=== PATIENT | female | born 1965 | race Caucasian/White ===

== ENCOUNTER 2016-09-12 13:09 | Inpatient (IN) | payer MEDICARE ==
[~2016-09-12] VITALS: Ht 162.6 cm; Wt 77.1 kg
[~2016-09-12 13:09] MED LIST: /ADVA50050 INH; /ESOM40CA PO; /ONDA4TA PO; AMITIZA; AMITIZA PO; CALTRATE; CALTRATE PO; CIPR750T5 PO; CLAR5CHW OR; COLA100C2 OR; DEXI60CA PO; DOXY150C PO; FLAXOIL PO; FLUC10TA OR; INSUH10VL SC; INSUH10VL SQ; INSULANT; INSULANT SC; KALYDECO PO; KETO-28; METO10TA2 OR; MIRALEX PO; MULTIVIT; NEXI40CA PO; NOVOLOG100 MG/ML; PULM1SOL INH; SODI3NEB INH; TOBRAMYCIN; VITA100T17 OR; VITA500046 PO; VITA500047 PO; VITA500C24 PO; VITAMIN D50000 UNT PO; XOPE1.252 INH; [UNRECOGNIZED DRUG - CODE] IN; [UNRECOGNIZED DRUG - CODE] IN; [UNRECOGNIZED DRUG - OTHER]; [UNRECOGNIZED DRUG - OTHER]; [UNRECOGNIZED DRUG - OTHER] INH; [UNRECOGNIZED DRUG - OTHER] NEB; ferrous sulfate PO; lantus insulin SC; mucinex PO; multivitamin PO; vit c PO
[2016-09-12] MEDS ORDERED: IPRATROPIUM 0.5MG/ALBUTEROL 2.5MG INH SOL UD 3ML (DUONEB)(J7620) As Ordered ONE (14:07)
--- NOTE | 2016-09-12 14:44 | REP ---
CHEST, PA AND LATERAL VIEWS: There is mild diffuse bilateral interstitial coarsening, unchanged, compatible with interstitial fibrosis. On the prior study I note the patient has clinical history of cystic fibrosis. There are no acute infiltrates. There is chronic effacement of the left costophrenic angle, unchanged, likely pleural adhesion. Cardiac size is normal. The oliver, mediastinum, and bony thorax are unremarkable. IMPRESSION: Chronic interstitial coarsening and chronic effacement of the left costophrenic angle. There are no acute cardiopulmonary findings. Unreviewed
[2016-09-12] MEDS ORDERED: D5W IV ONE (15:15)
[2016-09-12] MEDS ORDERED: TOBRAMYCIN SULF IV ONE (15:15)
[2016-09-12] MEDS ORDERED: ISOVUE-300 61% 50ML VIAL (Q9967) As Ordered ONE (15:24)
[2016-09-12] MEDS ORDERED: ONDANSETRON 4 MG TAB (S0181) PO PRN (16:00)
[2016-09-12] MEDS ORDERED: COLA100C PO (16:34)
[2016-09-12] MEDS ORDERED: DEXI60CA PO (16:34)
[2016-09-12] MEDS ORDERED: PULM1SOL INH (16:34)
[2016-09-12] MEDS ORDERED: NEXI40CA PO (16:34)
[2016-09-12] MEDS ORDERED: INSUH10VL SC (16:34)
[2016-09-12 16:35] LABS: BASO # 0.1 K/mm3 (0.0-0.2); BASO % 0.8 % (0.0-1.0); EOS # 0.1 K/mm3 (0.0-0.50); LARGE UNSTAINED CELL # 0.1 K/mm3 (0.0-0.4); LARGE UNSTAINED CELL % 1.1 % (0.0-4.0); LYMPH # 1.4 K/mm3 (1.5-4.5); LYMPH % 12.9 % (24.0-44.0); MEAN CORPUSCULAR VOLUME 81.6 fl (80.0-96.0); MONO # 0.4 K/mm3 (0.0-0.8); MONO % 3.7 % (0.0-5.0); NEUTROPHILS # 8.1 K/mm3 (1.8-7.7); NEUTROPHILS % 80.5 % (36.0-66.0); PLATELET COUNT, AUTOMATED 259 k/mm3 (150-450); RED CELL DISTRIBUTION WIDTH 13.3 % (11.5-14.5); WHITE BLOOD COUNT 10.1 K/mm3 (4.0-10.0)
[2016-09-12] MEDS ORDERED: LEVA12INH INH (16:36)
[2016-09-12] MEDS ORDERED: INSULANT SC (16:36)
[2016-09-12] MEDS ORDERED: CLAR1TAB2 PO (16:36)
[2016-09-12] MEDS ORDERED: [UNRECOGNIZED DRUG - CODE] INH (16:36)
[2016-09-12] MEDS ORDERED: MIRA3350 PO (16:36)
[2016-09-12 16:40] LABS: INR 1.16
[2016-09-12] MEDS ORDERED: KALY150T PO (16:42)
[2016-09-12] MEDS ORDERED: CALTTAB11 PO (16:42)
[2016-09-12] MEDS ORDERED: AQUACAP PO (16:42)
[2016-09-12] MEDS ORDERED: DRIS50002 PO (16:42)
[2016-09-12] MEDS ORDERED: AMIT24CA5 PO (16:42)
[2016-09-12] MEDS ORDERED: VITA100T56 PO (16:42)
[2016-09-12] MEDS ORDERED: CREO24CA PO ×2 (16:42)
[2016-09-12] MEDS ORDERED: GLUCOSE 4 GM CHEW TABLET PO PRN (16:45)
[2016-09-12] MEDS ORDERED: DEXTROSE 50% 50 ML SYRINGE IV PRN (16:45)
[2016-09-12] MEDS ORDERED: GLUCAGON FOR INJ 1 MG VIAL (J1610) SC PRN (16:45)
[2016-09-12 16:47] LABS: ALBUMIN 3.6 GM/DL (3.2-5.2); ALBUMIN/GLOBULIN RATIO 1.03 (1.00-1.93); ALKALINE PHOSPHATASE 136 U/L (45-117); ALT/SGPT 26 U/L (12-78); ANION GAP 12 MEQ/L (8-16); AST/SGOT 28 U/L (15-37); BILIRUBIN,DIRECT 0.2 MG/DL (0.0-0.2); BILIRUBIN,TOTAL 0.4 MG/DL (0.2-1.0); BLOOD UREA NITROGEN 12 MG/DL (7-18); CALCIUM LEVEL 8.3 MG/DL (8.5-10.1); CARBON DIOXIDE LEVEL 27 MEQ/L (21-32); CHLORIDE LEVEL 103 MEQ/L (98-107); CREATININE FOR GFR 0.78 MG/DL (0.55-1.02); GLOMERULAR FILTRATION RATE > 60.0 (>51); GLUCOSE, FASTING 178 MG/DL (70-105); POTASSIUM SERUM 3.7 MEQ/L (3.5-5.1); SODIUM LEVEL 142 MEQ/L (136-145); TOTAL PROTEIN 7.1 GM/DL (6.4-8.2)
[2016-09-12] MEDS ORDERED: PHYT5TA PO (16:47)
--- NOTE | 2016-09-12 17:32 | REP ---
SINGLE LUMEN PICC LINE INSERTION: The patient was referred for single lumen PICC line insertion. Informed consent was obtained. Under sterile conditions and after satisfactory administration of local anesthesia, using guidance from the [employer] device access to the right brachial vein is obtained. Over a wire an introducer sheath is placed. Wire could not be easily passed through the right axillary vein. I injected contrast to perform a venogram which showed a torturous course of the right axillary vein, which was slightly narrowed. Utilizing a glide wire within the single lumen PICC line, the PICC line was passed through the right axillary vein and the tip was positioned in the superior vena cava via fluoroscopy. Hemostasis was obtained. There were no immediate complications. 2.8 cm minutes of fluoroscopy time was utilized. Signed by Eric Garcia MD 09/16/2016 03:28 P
--- NOTE | 2016-09-12 17:43 | EDDOCDS ---
Nurse's Notes [facility] Name: Jovanna Ocampo Age: 51 yrs Sex: Female : 1965 Arrival Date: 09/12/2016 Time: 13:09 Bed 19 Private MD: Felipa Lainez Diagnosis: Cystic fibrosis with pulmonary manifestations Presentation: 09/12 13:17 Presenting complaint: Patient states: progressively getting worse with breathing dy difficulty. has cystic fibrosis. was unable to get into Dr. Francis. Adult Sepsis Screening: The patient does not have new or worsening altered mentation. Patient has a respiratory rate of greater than or equal to 22 (1 point). Systolic blood pressure is greater than 100. Patient has a qSOFA score of 2. Patient has cough and/or SOB- Positive Sepsis Screen. Notified Vishnu Funez MD Patient made SHAWN Level 2. Patient placed in exam room. Charge nurse notified. Suicide/Homicide risk assessment- the patient denies having any suicidal and/or homicidal ideations and does not present with any other emotional, behavioral or mental health complaints. Status: Patient is not a community service worker or dependent. Transition of care: patient was not received from another setting of care. 13:17 Acuity: SHAWN Level 2 dy 13:17 Method Of Arrival: Walkin/Carried/Asstd dy Triage Assessment: 13:52 General: Appears distressed, Behavior is cooperative. Pain: Location: lungs Pain jf3 currently is 6 out of 10 on a pain scale. Pt Declines HIV testing. The patient is triaged at the bedside. See Assessment in Nurses Notes section of ED record. Respiratory: Airway is patent Respiratory effort is labored, Respiratory pattern is hyperventilation Breath sounds are diminished bilaterally. Reports shortness of breath at rest cough that is persistent the patient has moderate shortness of breath. Derm: Skin is normal. Historical: - Allergies: SULFA (SULFONAMIDES); Codeine Sulfate; Fortaz; Aztreonam; CEPHALOSPORINS; Morphine; sulfa cross reactors; - Home Meds: 1. Dexilant 60 mg oral CpDB 1 cap once daily (Last dose: 09/12/2016) 2. Colace 100 mg oral cap 1 cap 2 times per day (Last dose: 09/12/2016) 3. pulmozyme (Last dose: 09/12/2016) 4. Nexium 40 mg Oral cpDR 1 cap once daily (Last dose: 09/12/2016) 5. Novolog 100 unit/mL Sub-Q soln pt hasn't used since she hasn't eaten (Last dose: 09/09/2016) 6. Lantus 100 unit/mL Sub-Q soln pt hasn't used since she hasn't eaten (Last dose: 09/09/2016) 7. Xopenex 1.25 mg/3 mL Nebulizer nebu (Last dose: 09/12/2016) 8. Claritin 10 mg Oral tab 1 tab once daily (Last dose: 09/12/2016) 9. Miralax 17 gram Oral pwpk 1 packet once daily (Last dose: 09/12/2016) 10. montserrat podhaler 28mg takes for one month every other month, off this month 11. Vitamin D3 oral 23770 units oral 3x week 12. vitamin k 100 mcg weekly 13. Amitiza 24 mcg oral cap 1 cap 2 times per day (Last dose: 09/12/2016) 14. Caltrate 600 + D 600 mg (1,500 mg)-800 unit oral chew daily (Last dose: 09/12/2016) 15. Kalydeco 150 mg oral tab 1 tab every 12 hours (Last dose: 09/12/2016) - PMHx: Cystic Fibrosis; Diabetes - IDDM: controlled; Arthritis; - PSHx: Appendectomy (1979); - Social history: No barriers to communication noted, The patient speaks fluent Ivorian, Smoking status: other. - Family history: Not pertinent. - : The pt / caregiver states he / she is not on anticoagulants. Home medication list is obtained from the patient, a discharge med list. - Exposure Risk Screening:: None identified. Screenin:02 Screening information is obtained from the patient. Fall risk: No risks identified. jf3 Assistance ADL's: requires no assistance with activities of daily living. Abuse/DV Screen: The patient / caregiver reports he/she is: not in a situation that causes fear, pain or injury. Nutritional screening: No deficits noted. Advance Directives: Currently, there is no health care proxy. There is no active DNR order. home support is adequate. Assessment: 13:55 General: Appears distressed, Behavior is cooperative. Pain: Location: lungs Pain jf3 currently is 6 out of 10 on a pain scale. Neurological: Level of Consciousness is awake, alert, Oriented to person, place, time. Cardiovascular: Capillary refill < 3 seconds Heart tones S1 S2 present Chest pain is denied. Respiratory: Airway is patent Respiratory effort is labored, Respiratory pattern is hyperventilation Breath sounds are diminished bilaterally. Reports shortness of breath cough that is persistent labored breathing the patient has moderate shortness of breath. Derm: Skin is normal. 14:45 General: pt to asset availability leader for PICC line. jf3 16:15 General: Appears in no apparent distress, comfortable, Behavior is cooperative, pt jf3 returned from asset availability leader. Pain: Pain currently is 6 out of 10 on a pain scale. Neurological: Level of Consciousness is awake, alert, Oriented to person, place, time. Cardiovascular: Capillary refill < 3 seconds Chest pain is denied. Respiratory: Airway is patent Respiratory effort is even, unlabored, Respiratory pattern is regular, symmetrical, Reports shortness of breath cough that is. Derm: Skin is normal. 16:45 General: called placed to PEDs for report, Elizabeth states the nurse is not there at this jf3 time and a nurse will do the admission first. States they will call ED when ready. 17:23 General: Admission nurse in room with pt at this time. Pt coughing decreased. jf3 respirations appear improved and unlabored. Will continue to monitor. 17:34 General: Appears in no apparent distress, comfortable, Behavior is cooperative. Pain: jf3 Pain currently is 7 out of 10 on a pain scale. Neurological: Level of Consciousness is awake, alert, Oriented to person, place, time. Cardiovascular: Capillary refill < 3 seconds Heart tones S1 S2 present. Respiratory: Airway is patent Respiratory effort is even, unlabored, Respiratory pattern is regular, symmetrical, Breath sounds are coarse Breath sounds are diminished bilaterally. Reports cough that is persistent. Derm: Skin is normal. Vital Signs: 13:11 BP 164 / 78; Pulse 104; Resp 24 S; Temp 97.9(T); Pulse Ox 91% on R/A; Weight 77.11 kg dd6 (R); Height 54 in. (137.16 cm) (R); 16:02 Pulse 108 MON; Pulse Ox 96% ; jf3 16:03 BP 160 / 88 (auto/); jf3 16:20 BP 155 / 61 (auto/); jf3 16:20 Pulse 104 MON; Pulse Ox 94% ; jf3 16:35 BP 152 / 71 (auto/); jf3 16:36 Pulse 102 MON; Pulse Ox 96% ; jf3 16:50 BP 139 / 63 (auto/); jf3 16:51 Pulse 100 MON; Pulse Ox 97% ; jf3 17:05 BP 134 / 64 (auto/); jf3 17:06 Pulse 104 MON; Pulse Ox 96% ; jf3 17:20 BP 133 / 63 (auto/); jf3 17:21 Pulse 100 MON; Pulse Ox 96% ; jf3 17:34 BP 141 / 68; Pulse 101; Resp 24; Temp 100.1(O); Pulse Ox 96% 3 lpm ; Pain 7/10; jf3 13:11 Body Mass Index 40.99 (77.11 kg, 137.16 cm) dd6 Vitals: 13:11 Log In Time: September 12, 2016 at 13:09. dd6 ED Course: 13:10 Patient visited by Mark No PCA. dd6 13:10 Patient moved to Waiting dd6 13:11 Felipa Lainez is Private Physician. dd6 13:12 Patient moved to Pre RCE dd6 13:19 Triage Initiated dy 13:21 Patient moved to 19 dy 13:26 [facility] ke 13:26 Patient visited by Lion Jaquez FNP. ke 13:26 Patient visited by Lion Jaquez FNP. ke 13:55 The patient / caregiver is instructed regarding the plan of care and ED course. jf3 13:57 Patient visited by Devin Salazar RN. jf3 14:16 Patient visited by Tracey Nicole PCA. jlf 14:16 Patient visited by Tracey Nicole PCA. jlf 14:16 EKG done. (by ED staff). Reviewed by Lion FRANCIS. jlf 14:55 Patient visited by Lion Jaquez FNP. ke 14:55 [facility] Payment Agreement was scanned into [employer] and attached to record. mm15 15:27 Chest, 2 View (pa\E\lat) Returned. EDMS 15:33 Patient visited by Lion Jaquez FNP. ke 15:Sherri Knight is Hospitalizing Provider. ke 16:02 Accessed PICC line placed by asset availability leader. No procedures done that require assistance. jf3 17:24 Patient visited by Devin Salazar RN. jf3 Administered Medications: 14:06 Drug: Albuterol-Ipratropium 1 neb [ipratropium-albuterol 0.5 mg-3 mg(2.5 mg base)/3 mL rs5 nebulization soln (1 neb)] Route: Nebulizer; 14:11 Drug: Albuterol-Ipratropium 1 neb [ipratropium-albuterol 0.5 mg-3 mg(2.5 mg base)/3 mL rs5 nebulization soln (1 neb)] Route: Nebulizer; 14:11 Follow up: Response: Nebulizer completed rs5 14:11 Follow up: Response: Nebulizer completed rs5 14:11 Follow up: Response: Nebulizer completed rs5 14:11 Drug: Albuterol-Ipratropium 1 neb [ipratropium-albuterol 0.5 mg-3 mg(2.5 mg base)/3 mL rs5 nebulization soln (1 neb)] Route: Nebulizer; 16:26 Drug: Tobramycin 500 mg {Note: RUNNING VIA PICC.} Route: IV; Rate: 500 mg/hr; Site: [facility] Implantable Access Device; 17:40 Follow up: IV Status: Completed infusion; IV Intake: 100ml 3 Intake: 17:40 IV: 100.00ml; Total: 100.00ml. jf3 RT: 14:12 Initial Med Neb Given as ordered Subsequent Med Neb Given as ordered Patient was rs5 reinforced on procedure Patient tolerated procedure well without adverse effect. Respiratory: Respiratory effort is even, unlabored, Respiratory pattern is regular symmetrical, Breath sounds with crackles bilaterally. Breath sounds are diminished Breath sounds with wheezes Reports cough that is productive. Order Results: Lab Order: Basic Metabolic Profile; SPEC'M 09/12/16 16:08 Test: GLUCOSE, FASTING; Value: 178; Range: 70-105; Abnormal: Above high normal; Units: MG/DL; Status: F Test: BLOOD UREA NITROGEN; Value: 12; Range: 7-18; Units: MG/DL; Status: F Test: CREATININE FOR GFR; Value: 0.78; Range: 0.55-1.02; Units: MG/DL; Status: F Test: GLOMERULAR FILTRATION RATE; Value: > 60.0; Range: >51; Status: F Test: SODIUM LEVEL; Value: 142; Range: 136-145; Units: MEQ/L; Status: F Test: POTASSIUM SERUM; Value: 3.7; Range: 3.5-5.1; Units: MEQ/L; Status: F Test: CHLORIDE LEVEL; Value: 103; Range: 98-107; Units: MEQ/L; Status: F Test: CARBON DIOXIDE LEVEL; Value: 27; Range: 21-32; Units: MEQ/L; Status: F Test: ANION GAP; Value: 12; Range: 8-16; Units: MEQ/L; Status: F Test: CALCIUM LEVEL; Value: 8.3; Range: 8.5-10.1; Abnormal: Below low normal; Units: MG/DL; Status: F Test Note: ; Units are mL/min/1.73 m2 Chronic Kidney Disease Staging per NKF: Stage I & II GFR >=60 Normal to Mildly Decreased Stage III GFR 30-59 Moderately Decreased Stage IV GFR 15-29 Severely Decreased Stage V GFR <15 Very Little GFR Left ESRD GFR <15 on TRACK SWEEPER Lab Order: CBC with Diff; SPEC'M 09/12/16 16:08 Test: WHITE BLOOD COUNT; Value: 10.1; Range: 4.0-10.0; Abnormal: Above high normal; Units: K/mm3; Status: F Test: RED BLOOD COUNT; Value: 4.74; Range: 4.00-5.40; Units: M/mm3; Status: F Test: HEMOGLOBIN; Value: 12.8; Range: 12.0-16.0; Units: g/dl; Status: F Test: HEMATOCRIT; Value: 38.7; Range: 36.0-47.0; Units: %; Status: F Test: MEAN CORPUSCULAR VOLUME; Value: 81.6; Range: 80.0-96.0; Units: fl; Status: F Test: MEAN CORPUSCULAR HEMOGLOBIN; Value: 27.0; Range: 27.0-33.0; Units: pg; Status: F Test: MEAN CORPUSCULAR HGB CONC; Value: 33.0; Range: 32.0-36.5; Units: g/dl; Status: F Test: RED CELL DISTRIBUTION WIDTH; Value: 13.3; Range: 11.5-14.5; Units: %; Status: F Test: PLATELET COUNT, AUTOMATED; Value: 259; Range: 150-450; Units: k/mm3; Status: F Test: NEUTROPHILS %; Value: 80.5; Range: 36.0-66.0; Abnormal: Above high normal; Units: %; Status: F Test: LYMPH %; Value: 12.9; Range: 24.0-44.0; Abnormal: Below low normal; Units: %; Status: F Test: MONO %; Value: 3.7; Range: 0.0-5.0; Units: %; Status: F Test: EOS %; Value: 1.0; Range: 0.0-3.0; Units: %; Status: F Test: BASO %; Value: 0.8; Range: 0.0-1.0; Units: %; Status: F Test: LARGE UNSTAINED CELL %; Value: 1.1; Range: 0.0-4.0; Units: %; Status: F Test: NEUTROPHILS #; Value: 8.1; Range: 1.8-7.7; Abnormal: Above high normal; Units: K/mm3; Status: F Test: LYMPH #; Value: 1.4; Range: 1.5-4.5; Abnormal: Below low normal; Units: K/mm3; Status: F Test: MONO #; Value: 0.4; Range: 0.0-0.8; Units: K/mm3; Status: F Test: EOS #; Value: 0.1; Range: 0.0-0.50; Units: K/mm3; Status: F Test: BASO #; Value: 0.1; Range: 0.0-0.2; Units: K/mm3; Status: F Test: LARGE UNSTAINED CELL #; Value: 0.1; Range: 0.0-0.4; Units: K/mm3; Status: F Lab Order: Liver Profile; [facility]'M 09/12/16 16:08 Test: AST/SGOT; Value: 28; Range: 15-37; Units: U/L; Status: F Test: ALT/SGPT; Value: 26; Range: 12-78; Units: U/L; Status: F Test: ALKALINE PHOSPHATASE; Value: 136; Range: 45-117; Abnormal: Above high normal; Units: U/L; Status: F Test: BILIRUBIN,TOTAL; Value: 0.4; Range: 0.2-1.0; Units: MG/DL; Status: F Test: BILIRUBIN,DIRECT; Value: 0.2; Range: 0.0-0.2; Units: MG/DL; Status: F Test: TOTAL PROTEIN; Value: 7.1; Range: 6.4-8.2; Units: GM/DL; Status: F Test: ALBUMIN; Value: 3.6; Range: 3.2-5.2; Units: GM/DL; Status: F Test: ALBUMIN/GLOBULIN RATIO; Value: 1.03; Range: 1.00-1.93; Status: F Lab Order: PT/INR; SPEC'M 09/12/16 16:08 Test: PROTHROMBIN TIME; Value: 14.9; Range: 12.3-14.5; Abnormal: Above high normal; Units: SECONDS; Status: F Test: INR; Value: 1.16; Status: F Test Note: ; THERAPUTIC HUMAN INR VALUES INDICATIONS NORMAL RANGES PROPHYLAXIS/TREATMENT OF: VENOUS THROMBOSIS 2.0-3.0 PULMONARY EMBOLISM 2.0-3.0 PREVENTION OF SYSTEMIC EMBOLISM FROM: TISSUE HEART VALVES 2.0-3.0 ACUTE MYOCARDIAL INFARCTION 2.0-3.0 VALVULAR HEART DISEASE 2.0-3.0 ATRIAL FIBRILLATION 2.0-3.0 MECHANICAL VALVES(HIGH RISK) 2.5-3.5 RECURRENT MYOCARDIAL INFARCTION 2.5-3.5 Lab Order: Lactic Acid (Garcia tube on ice); SPEC'M 09/12/16 16:08 Test: LACTIC ACID LEVEL, LACTATE; Value: 1.6; Range: 0.4-2.0; Units: MMOL/L; Status: F Radiology Order: Chest, 2 View (pa\E\lat) Test: Chest, 2 View (pa\E\lat) REASON FOR EXAMINATION: Shortness of Breath; ; CHEST, PA AND LATERAL VIEWS:; ; There is mild diffuse bilateral interstitial coarsening, unchanged, compatible; with interstitial fibrosis. On the prior study I note the patient has clinical; history of cystic fibrosis.; ; There are no acute infiltrates.; ; There is chronic effacement of the left costophrenic angle, unchanged, likely; pleural adhesion.; ; Cardiac size is normal. The oliver, mediastinum, and bony thorax are unremarkable.; ; ; IMPRESSION:; Chronic interstitial coarsening and chronic effacement of the left costophrenic; angle.; ; There are no acute cardiopulmonary findings.; ; ; ; ; ; Unreviewed; Outcome: 15:54 Decision to Hospitalize by Provider. sharon 17:20 Admission hand-off: Report called to MARYANA Olea on PEDs. jf3 17:39 Discharge Assessment: patient administered narcotics - no. The following High Risk 3 Discharge criteria are identified: None. Admitted to Pediatrics accompanied by tech, via stretcher, with chart. Condition: stable. No special radiology studies were completed. Property :Personal belongings accompany Pt. 17:42 Patient left the ED. jf3 Signatures: Dispatcher [employer] EDMaurizio Arroyo, RN Lion Salas, DIRECTOR PUBLIC SERVICE DIRECTOR PUBLIC SERVICE Mark Gorman, PET CAREGIVER PET CAREGIVER dd6 Todd Matt,RT RT rs5 Desiree Shrestha mm15 Tracey Nicole, PET CAREGIVER PET CAREGIVER jlf Devin Salazar,RN RN jf3 MTDD
--- NOTE | 2016-09-12 17:43 | EDDOCDS ---
Physician Documentation [facility] Name: Jovanna Ocampo Age: 51 yrs Sex: Female : 1965 Arrival Date: 09/12/2016 Time: 13:09 Bed 19 Private MD: Felipa Lainez Disposition: 09/12/16 15:54 Hospitalization ordered by Sherri Francis for Inpatient Admission. Preliminary diagnosis is Cystic fibrosis with pulmonary manifestations. - Bed requested for M PED. - Status is Inpatient Admission. jf3 - Condition is Stable. - Problem is an acute exacerbation. - Symptoms are unchanged. Historical: - Allergies: SULFA (SULFONAMIDES); Codeine Sulfate; Fortaz; Aztreonam; CEPHALOSPORINS; Morphine; sulfa cross reactors; - Home Meds: 1. Dexilant 60 mg oral CpDB 1 cap once daily (Last dose: 09/12/2016) 2. Colace 100 mg oral cap 1 cap 2 times per day (Last dose: 09/12/2016) 3. pulmozyme (Last dose: 09/12/2016) 4. Nexium 40 mg Oral cpDR 1 cap once daily (Last dose: 09/12/2016) 5. Novolog 100 unit/mL Sub-Q soln pt hasn't used since she hasn't eaten (Last dose: 09/09/2016) 6. Lantus 100 unit/mL Sub-Q soln pt hasn't used since she hasn't eaten (Last dose: 09/09/2016) 7. Xopenex 1.25 mg/3 mL Nebulizer nebu (Last dose: 09/12/2016) 8. Claritin 10 mg Oral tab 1 tab once daily (Last dose: 09/12/2016) 9. Miralax 17 gram Oral pwpk 1 packet once daily (Last dose: 09/12/2016) 10. montserrat podhaler 28mg takes for one month every other month, off this month 11. Vitamin D3 oral 10352 units oral 3x week 12. vitamin k 100 mcg weekly 13. Amitiza 24 mcg oral cap 1 cap 2 times per day (Last dose: 09/12/2016) 14. Caltrate 600 + D 600 mg (1,500 mg)-800 unit oral chew daily (Last dose: 09/12/2016) 15. Kalydeco 150 mg oral tab 1 tab every 12 hours (Last dose: 09/12/2016) - PMHx: Cystic Fibrosis; Diabetes - IDDM: controlled; Arthritis; - PSHx: Appendectomy (1979); - Social history: No barriers to communication noted, The patient speaks fluent Salvadorean, Smoking status: other. - Family history: Not pertinent. - : The pt / caregiver states he / she is not on anticoagulants. Home medication list is obtained from the patient, a discharge med list. - Exposure Risk Screening:: None identified. Vital Signs: 09/12 13:11 BP 164 / 78; Pulse 104; Resp 24 S; Temp 97.9(T); Pulse Ox 91% on R/A; Weight 77.11 kg / dd6 170 lbs (R); Height 54 in. (137.16 cm) (R); 16:02 Pulse 108 MON; Pulse Ox 96% ; jf3 16:03 BP 160 / 88 (auto/); jf3 16:20 BP 155 / 61 (auto/); jf3 16:20 Pulse 104 MON; Pulse Ox 94% ; jf3 16:35 BP 152 / 71 (auto/); jf3 16:36 Pulse 102 MON; Pulse Ox 96% ; jf3 16:50 BP 139 / 63 (auto/); jf3 16:51 Pulse 100 MON; Pulse Ox 97% ; jf3 17:05 BP 134 / 64 (auto/); jf3 17:06 Pulse 104 MON; Pulse Ox 96% ; jf3 17:20 BP 133 / 63 (auto/); jf3 17:21 Pulse 100 MON; Pulse Ox 96% ; jf3 17:34 BP 141 / 68; Pulse 101; Resp 24; Temp 100.1(O); Pulse Ox 96% 3 lpm ; Pain 7/10; jf3 13:11 Body Mass Index 40.99 (77.11 kg, 137.16 cm) dd6 MDM: 13:42 -Blood Culture (Adults Only), peripheral from different site, or from device/port/PICC ke etc. if present ordered. 13:42 Cloth Sponger/Pulse Ox/q 15 min VS ordered. ke 13:42 Oxygen at 4L/Min NC or Home dosage ordered. ke 13:42 Rhythm Strip to chart ordered. ke 13:42 CBC Ordered. EDMS 13:42 Basic Metabolic Profile Ordered. EDMS 13:42 CBC with Diff Ordered. EDMS 13:43 Liver Profile Ordered. EDMS 13:43 PT/INR Ordered. EDMS 13:43 -Blood Culture Ordered. EDMS 13:43 Chest, 2 View (pa\E\lat) Ordered. EDMS 13:43 ECG WITH READING ER PHYS+CARDIAG ordered. EDMS 13:49 Financial registration complete. mm15 13:49 Albuterol-Ipratropium 1 neb Nebulizer every 20 minutes x3 ordered. ke 13:49 Call Respiratory ordered. ke 13:50 Misc [place] Barker Order ordered. ke 13:51 Sputum Culture & Gram Stain Ordered. EDMS 13:51 Lactic Acid (Garcia tube on ice) Ordered. EDMS 13:52 Call Respiratory complete. bcj 14:11 Misc Wood Barker Order complete. lbd 14:12 PICC LINE INSERTION W/SITERITE Ordered. EDMS 14:12 -Blood Culture (Adults Only), peripheral from different site, or from device/port/PICC lbd etc. if present complete. 14:13 BLOOD CULTURES Ordered. EDMS 14:51 Tobramycin 500 mg IV at 500 mg/hr once ordered. ke 14:55 [facility] Payment Agreement was scanned into [employer] and attached to record. mm15 15:53 Admission / Observation Status ordered. EDMS 15:53 CONSISTENT CARBOHYDRATES ordered. EDMS 17:30 heparin 100units/mL flush (PICC line) 2 ml IVP once; flush each port first with 10mL of jf3 NS followed by heparin ordered. Administered Medications: 14:06 Drug: Albuterol-Ipratropium 1 neb [ipratropium-albuterol 0.5 mg-3 mg(2.5 mg base)/3 mL rs5 nebulization soln (1 neb)] Route: Nebulizer; 14:11 Drug: Albuterol-Ipratropium 1 neb [ipratropium-albuterol 0.5 mg-3 mg(2.5 mg base)/3 mL rs5 nebulization soln (1 neb)] Route: Nebulizer; 14:11 Follow up: Response: Nebulizer completed rs5 14:11 Follow up: Response: Nebulizer completed rs5 14:11 Follow up: Response: Nebulizer completed rs5 14:11 Drug: Albuterol-Ipratropium 1 neb [ipratropium-albuterol 0.5 mg-3 mg(2.5 mg base)/3 mL rs5 nebulization soln (1 neb)] Route: Nebulizer; 16:26 Drug: Tobramycin 500 mg {Note: RUNNING VIA PICC.} Route: IV; Rate: 500 mg/hr; Site: [facility] [address] Implantable Access Device; 17:40 Follow up: IV Status: Completed infusion; IV Intake: 100ml [facility] [address] Signatures: Dispatcher [employer] EDMS Leyla Gaona, Dye Reel Operator Unit lbd Clayton Ramirez, RN RN Maurizio Ann, RN RN Lion Gallo, VENDING STAND SUPERVISOR VENDING STAND SUPERVISOR Desiree Rai mm15 Adam Bradshaw RN RN [facility] Devin Salazar RN RN jf3 Todd Matt RT rs5 The chart was reviewed and I authenticate all verbal orders and agree with the evaluation and treatment provided.Corrections: (The following items were deleted from the chart) 16:27 13:42 IV Saline Lock ordered. sharon [email or web address] Attachments: 14:55 [facility] Payment Agreement mm15 MTDD
[2016-09-12 18:00] VITALS: BP 151/75
[2016-09-12] MEDS: LEVALBUTEROL 1.25 MG/0.5 ML CONCENTRATE NEB INH SCH (19:41)
[2016-09-12] MEDS: DORNASE INHALATION SOLN 1 MG/ML 2.5 ML AMP INH SCH (19:41)
[2016-09-12 20:00] VITALS: BP 132/63
--- NOTE | 2016-09-12 20:39 | ECGEPIP ---
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
[2016-09-12] MEDS ORDERED: MIRALAX *UNIT DOSE* 17GM PACKET PO SCH (21:00)
[2016-09-12] MEDS ORDERED: ENTER DRUG NAME HERE (PATIENT'S OWN MED) PO SCH ×2 (21:00)
[2016-09-12] MEDS: HumaLOG INSULIN (NovoLOG) PER UNIT SC SCH (21:00)
[2016-09-12] MEDS ORDERED: LEVEMIR (INSULIN DETEMIR) 1 UNITS/0.01ML SC SCH (21:00)
[2016-09-12] MEDS: DOCUSATE SODIUM 100 MG CAP PO SCH (21:02)
[2016-09-12] MEDS: LEVEMIR (INSULIN DETEMIR) 1 UNITS/0.01ML SC SCH (21:02)
[2016-09-12] MEDS: ASCORBIC ACID 500 MG TAB PO SCH (21:02)
[2016-09-12] MEDS: LORATADINE 10 MG TAB PO SCH (21:02)
[2016-09-12] MEDS: IMIPENEM/CILASTATIN 1,000 MG in NS 250 ML IV SCH (21:03)
[2016-09-12] MEDS: ADVAIR DISKUS 500/50 INH PWD INH SCH (22:22)
[2016-09-12] MEDS: KALYDECO PO SCH (22:57)
[2016-09-13] VITALS: BP 133/60
[2016-09-13] MEDS: IMIPENEM/CILASTATIN 1,000 MG in NS 250 ML IV SCH ×4 (02:42→20:17)
[2016-09-13 04:00] VITALS: BP 116/56
[2016-09-13] MEDS: ONDANSETRON 4MG/2ML VIAL (J2405) IV PRN ×3 (04:15→21:57)
[2016-09-13] MEDS: HumaLOG INSULIN (NovoLOG) PER UNIT SC SCH ×4 (07:30→21:00)
[2016-09-13] MEDS: DORNASE INHALATION SOLN 1 MG/ML 2.5 ML AMP INH SCH ×2 (07:34→19:39)
[2016-09-13] MEDS: ADVAIR DISKUS 500/50 INH PWD INH SCH ×2 (07:34→19:39)
[2016-09-13] MEDS: LEVALBUTEROL 1.25 MG/0.5 ML CONCENTRATE NEB INH SCH ×3 (08:00→19:39)
[2016-09-13] MEDS: CREON-24 CAPSULE PO SCH ×3 (08:00→18:10)
[2016-09-13 08:20] VITALS: BP 124/63
[2016-09-13] MEDS ORDERED: SODIUM CHLORIDE 0.9% INJ 10 ML SYR IV PRN (08:30)
[2016-09-13] MEDS: DOCUSATE SODIUM 100 MG CAP PO SCH ×2 (08:47→21:56)
[2016-09-13] MEDS: MIRALAX *UNIT DOSE* 17GM PACKET PO SCH (08:47)
[2016-09-13] MEDS: PANTOPRAZOLE 40MG TAB (PROTONIX) PO SCH (08:47)
[2016-09-13] MEDS: ASCORBIC ACID 500 MG TAB PO SCH ×2 (08:47→21:55)
[2016-09-13] MEDS: MULTIVITAMINS/MINERALS THERAP 1 TAB PO SCH (08:47)
[2016-09-13] MEDS: ENOXAPARIN 40 MG/0.4 ML SYRINGE (J1650) SC SCH (08:48)
[2016-09-13] MEDS: KALYDECO PO SCH ×2 (08:50→21:57)
[2016-09-13 12:25] VITALS: BP 128/60
[2016-09-13] MEDS: ACETAMINOPHEN TAB 650MG DOSE (2X325MG) PO PRN ×2 (12:53→18:10)
[2016-09-13] MEDS: TOBRAMYCIN SULF IV SCH (16:26)
[2016-09-13] MEDS: D5W IV SCH (16:26)
[2016-09-13 18:00] VITALS: BP 117/56
[2016-09-13] MEDS ORDERED: SODIUM CHLORIDE 0.9% INJ 10 ML SYR IV SCH (18:00)
[2016-09-13 20:00] VITALS: BP 121/59
[2016-09-13] MEDS: TOBRAMYCIN INH SCH (21:00)
[2016-09-13] MEDS: LORATADINE 10 MG TAB PO SCH (21:55)
[2016-09-13] MEDS: LEVEMIR (INSULIN DETEMIR) 1 UNITS/0.01ML SC SCH (21:56)
[2016-09-14] VITALS: BP 125/67
[2016-09-14] MEDS: ACETAMINOPHEN TAB 650MG DOSE (2X325MG) PO PRN ×2 (00:56→06:36)
[2016-09-14] MEDS ORDERED: guaiFENesin SYRUP 200 MG/10 ML UDC PO PRN (01:15)
[2016-09-14] MEDS: NS 1,000 ML IV SCH ×2 (01:48→12:11)
[2016-09-14] MEDS: ONDANSETRON 4MG/2ML VIAL (J2405) IV PRN (02:32)
[2016-09-14] MEDS: IMIPENEM/CILASTATIN 1,000 MG in NS 250 ML IV SCH ×4 (02:32→20:00)
[2016-09-14] MEDS: HumaLOG INSULIN (NovoLOG) PER UNIT SC SCH ×4 (07:30→21:00)
[2016-09-14] MEDS: DORNASE INHALATION SOLN 1 MG/ML 2.5 ML AMP INH SCH ×2 (07:31→19:16)
[2016-09-14] MEDS: LEVALBUTEROL 1.25 MG/0.5 ML CONCENTRATE NEB INH SCH ×3 (07:31→19:15)
[2016-09-14] MEDS: ADVAIR DISKUS 500/50 INH PWD INH SCH ×2 (07:34→19:15)
[2016-09-14] MEDS: TOBRAMYCIN INH SCH ×2 (07:35→19:16)
[2016-09-14] MEDS: ENOXAPARIN 40 MG/0.4 ML SYRINGE (J1650) SC SCH (08:24)
[2016-09-14] MEDS: MIRALAX *UNIT DOSE* 17GM PACKET PO SCH (08:24)
[2016-09-14] MEDS: KALYDECO PO SCH ×2 (08:25→21:16)
[2016-09-14] MEDS: PANTOPRAZOLE 40MG TAB (PROTONIX) PO SCH (08:25)
[2016-09-14] MEDS: DOCUSATE SODIUM 100 MG CAP PO SCH ×2 (08:25→20:58)
[2016-09-14] MEDS: ASCORBIC ACID 500 MG TAB PO SCH ×2 (08:25→20:58)
[2016-09-14] MEDS: MULTIVITAMINS/MINERALS THERAP 1 TAB PO SCH (08:25)
[2016-09-14] MEDS: CREON-24 CAPSULE PO SCH ×5 (08:26→18:16)
[2016-09-14 08:30] VITALS: BP 118/58
[2016-09-14 12:00] VITALS: BP 108/55
--- NOTE | 2016-09-14 14:50 | HPE ---
DATE OF ADMISSION: 09/12/2016 Ms. Ocampo is a 51-year-old white female with cystic fibrosis who is well known to me from the cystic fibrosis clinic. Apparently she began feeling unwell approximately 2 weeks ago with increased shortness of breath and cough. She felt chills and believes she had some temperatures for which she was taking Tylenol. Ms. Ocampo has difficulty with expectoration and typically swallows her sputum, but did feel as if it tasted like Pseudomonas. Approximately 2 days ago, she developed laryngitis. Her throat is not particularly sore. She has had difficulty with sleep because of her coughing and does admit to taking a sleep medication last night. Ms. Ocampo has had difficulty in the past with constipation, but overall her bowels are doing reasonably well. When her symptoms persisted and her shortness of breath continued to worsen, she proceeded to the emergency department. ALLERGIES: SULFA, AZTREONAM, FORTAZ, MORPHINE and ZITHROMAX. MEDICATIONS: - Dexilant 60 mg by mouth daily - Colace 100 mg by mouth twice a day - Pulmozyme one nebulization daily - Nexium 40 mg by mouth daily - NovoLog sliding scale - Lantus 16 IU nightly - Xopenex 1.25 mg/3 mL nebulizer three times a day - Claritin 10 mg by mouth daily - MiraLAX one packet daily - Hipolito Podhaler 28 mg one month off, one month on. She is due to start this 09/14/2016. - vitamin D 50,000 units by mouth three times weekly - vitamin K 5 mg by mouth weekly - Amitiza 24 mcg twice a day - Caltrate 600 plus D, 600 mg-800 unit oral chew daily - Kalydeco 150 mg by mouth every 12 hours - Creon-24 four with meals and two with snacks - vest twice a day - Dulera two puffs twice a day (not using a spacer) PAST MEDICAL HISTORY: 1. Cystic fibrosis with respiratory and pancreatic insufficiency. 2. History of allergic bronchopulmonary aspergillosis (ABPA). 3. Vitamin D insufficiency. 4. Diabetes mellitus, cystic fibrosis related, insulin requiring. 5. Significant bowel difficulties with consciousness, felt secondary to cystic fibrosis, followed by Dr. Lawton. SOCIAL HISTORY: Ms. Ocampo has a son who is an adult. FAMILY HISTORY: Noncontributory to this admission. REVIEW OF SYSTEMS: Per history of the present illness. Remainder of pertinent review of systems are negative. PHYSICAL EXAMINATION: Ms. Ocampo is lying on the stretcher in no acute respiratory distress. She has frequent harsh-sounding cough. She looks very tired. She is very hoarse. VITAL SIGNS: Temperature 97.9, pulse 104, respiratory rate 24, blood pressure 164/78, weight 77.1 kg, height 54 inches. HEENT: Anicteric, pupils equal, reactive to light. Nares: Patent bilaterally. Oropharynx: Clear, no lesions, mild white coating on the tongue. NECK: Supple, without jugular venous distention (JVD), thyromegaly or masses. Trachea is midline. LYMPHS: Without cervical or supraclavicular lymphadenopathy. LUNGS: Symmetric excursion, generalized diminished air entry, scattered expiratory wheeze. No significant rhonchi or crackles. CARDIOVASCULAR SYSTEM: Tachycardic, regular rhythm. Normal S1, S2. No murmur, rub or gallop appreciated. ABDOMEN: Bowel sounds positive, soft, nondistended, nontender, no hepatosplenomegaly or masses appreciated. EXTREMITIES: 2+ clubbing, without cyanosis or edema. Palpable pedal pulses bilaterally. SKIN: No rashes on face or extremities. PSYCHIATRIC: Affect appears appropriate. NEUROLOGIC: Alert, awake and oriented times three. No obvious neurologic deficits. LABORATORY DATA: CBC shows a hemoglobin of 12.8, hematocrit 38.7, platelet count 259,000, white blood cell count 10,100 with a differential 81% neutrophils, 13% lymphocytes. PT is 14.9 and INR is 1.16. Chemistry shows sodium 142, potassium 3.7, chloride 103, bicarbonate 27, anion gap 12, BUN 12, creatinine 0.8, glucose 178, lactic acid 1.6, calcium 8.3, total bilirubin 0.4, AST 28, ALT 26, alkaline phosphatase 136, total protein 7.1, albumin 3.6. I reviewed her chest x-ray as well as her report from earlier today. That x-ray shows no normal appearing cardiac silhouette, pulmonary vascular shadows. Normal appearing mediastinal and hilar infiltrates. No consolidated regions. Chronic changes. IMPRESSION: 1. Cystic fibrosis exacerbation. This necessitates medical admission, and it is anticipated that she will be hospitalized for greater than two nights. 2. Cystic fibrosis with respiratory and pancreatic insufficiency. 3. Chronic constipation, followed by Dr. Lawton. 4. Insufficient vitamin D levels. 5. History of allergic bronchopulmonary aspergillosis (ABPA). RECOMMENDATIONS: 1. We do not have a recent sputum culture from Ms. Ocampo. She apparently had one done in [place] in May and that showed Staphylococcus aureus and Pseudomonas, which is the agents we have previously seen. Based on this, we will treat her as we did during her last exacerbation with Primaxin 1 gram every 6 hours and tobramycin 700 mg daily. 2. We will attempt to send sputum for gram stain and culture. If that is achieved, we will tailor the antibiotics based on the results. 3. We will continue all of her other outpatient medications. 4. We will anticipate starting to Hipolito Podtamyers on 09/14/2016. 5. As Ms. Ocampo is acutely ill and not very active, we will use sequential compression devices (SCDs), thromboembolism deterrents (TEDs) and subcutaneous Lovenox as deep vein thrombosis (DVT) prophylaxis. As she improves and ambulates further, DVT prophylaxis may not be necessary. RAJIV
[2016-09-14] MEDS: D5W/0.45% SODIUM CHLORIDE 1,000 ML IV SCH (15:42)
[2016-09-14] MEDS: D5W IV SCH (15:42)
[2016-09-14] MEDS: TOBRAMYCIN SULF IV SCH (15:42)
[2016-09-14 16:00] VITALS: BP 121/60
[2016-09-14] MEDS: SODIUM CHLORIDE 0.9% INJ 10 ML SYR IV SCH (17:58)
[2016-09-14] MEDS: guaiFENesin/CODEINE SYRUP 5 ML UDC PO PRN (18:33)
--- NOTE | 2016-09-14 18:43 | EDDOCDS ---
Physician Documentation [facility] Name: Jovanna Ocampo Age: 51 yrs Sex: Female : 1965 Arrival Date: 09/12/2016 Time: 13:09 Bed 19 Private MD: Felipa Lainez Disposition: 09/12/16 15:54 Hospitalization ordered by Sherri Francis for Inpatient Admission. Preliminary diagnosis is Cystic fibrosis with pulmonary manifestations. - Bed requested for M PED. - Status is Inpatient Admission. jf3 - Condition is Stable. - Problem is an acute exacerbation. - Symptoms are unchanged. Historical: - Allergies: SULFA (SULFONAMIDES); Codeine Sulfate; Fortaz; Aztreonam; CEPHALOSPORINS; Morphine; sulfa cross reactors; - Home Meds: 1. Dexilant 60 mg oral CpDB 1 cap once daily (Last dose: 09/12/2016) 2. Colace 100 mg oral cap 1 cap 2 times per day (Last dose: 09/12/2016) 3. pulmozyme (Last dose: 09/12/2016) 4. Nexium 40 mg Oral cpDR 1 cap once daily (Last dose: 09/12/2016) 5. Novolog 100 unit/mL Sub-Q soln pt hasn't used since she hasn't eaten (Last dose: 09/09/2016) 6. Lantus 100 unit/mL Sub-Q soln pt hasn't used since she hasn't eaten (Last dose: 09/09/2016) 7. Xopenex 1.25 mg/3 mL Nebulizer nebu (Last dose: 09/12/2016) 8. Claritin 10 mg Oral tab 1 tab once daily (Last dose: 09/12/2016) 9. Miralax 17 gram Oral pwpk 1 packet once daily (Last dose: 09/12/2016) 10. montserrat podhaler 28mg takes for one month every other month, off this month 11. Vitamin D3 oral 93875 units oral 3x week 12. vitamin k 100 mcg weekly 13. Amitiza 24 mcg oral cap 1 cap 2 times per day (Last dose: 09/12/2016) 14. Caltrate 600 + D 600 mg (1,500 mg)-800 unit oral chew daily (Last dose: 09/12/2016) 15. Kalydeco 150 mg oral tab 1 tab every 12 hours (Last dose: 09/12/2016) - PMHx: Cystic Fibrosis; Diabetes - IDDM: controlled; Arthritis; - PSHx: Appendectomy (1979); - Social history: No barriers to communication noted, The patient speaks fluent Jamaican, Smoking status: other. - Family history: Not pertinent. - : The pt / caregiver states he / she is not on anticoagulants. Home medication list is obtained from the patient, a discharge med list. - Exposure Risk Screening:: None identified. Vital Signs: 09/12 13:11 BP 164 / 78; Pulse 104; Resp 24 S; Temp 97.9(T); Pulse Ox 91% on R/A; Weight 77.11 kg / dd6 170 lbs (R); Height 54 in. (137.16 cm) (R); 16:02 Pulse 108 MON; Pulse Ox 96% ; jf3 16:03 BP 160 / 88 (auto/); jf3 16:20 BP 155 / 61 (auto/); jf3 16:20 Pulse 104 MON; Pulse Ox 94% ; jf3 16:35 BP 152 / 71 (auto/); jf3 16:36 Pulse 102 MON; Pulse Ox 96% ; jf3 16:50 BP 139 / 63 (auto/); jf3 16:51 Pulse 100 MON; Pulse Ox 97% ; jf3 17:05 BP 134 / 64 (auto/); jf3 17:06 Pulse 104 MON; Pulse Ox 96% ; jf3 17:20 BP 133 / 63 (auto/); jf3 17:21 Pulse 100 MON; Pulse Ox 96% ; jf3 17:34 BP 141 / 68; Pulse 101; Resp 24; Temp 100.1(O); Pulse Ox 96% 3 lpm ; Pain 7/10; jf3 13:11 Body Mass Index 40.99 (77.11 kg, 137.16 cm) dd6 MDM: 13:42 -Blood Culture (Adults Only), peripheral from different site, or from device/port/PICC ke etc. if present ordered. 13:42 Bolt Cutter/Pulse Ox/q 15 min VS ordered. ke 13:42 Oxygen at 4L/Min NC or Home dosage ordered. ke 13:42 Rhythm Strip to chart ordered. ke 13:42 CBC Ordered. EDMS 13:42 Basic Metabolic Profile Ordered. EDMS 13:42 CBC with Diff Ordered. EDMS 13:43 Liver Profile Ordered. EDMS 13:43 PT/INR Ordered. EDMS 13:43 -Blood Culture Ordered. EDMS 13:43 Chest, 2 View (pa\E\lat) Ordered. EDMS 13:43 ECG WITH READING ER PHYS+CARDIAG ordered. EDMS 13:49 Financial registration complete. mm15 13:49 Albuterol-Ipratropium 1 neb Nebulizer every 20 minutes x3 ordered. ke 13:49 Call Respiratory ordered. ke 13:50 Misc Boiler Inspector Order ordered. ke 13:51 Sputum Culture & Gram Stain Ordered. EDMS 13:51 Lactic Acid (Garcia tube on ice) Ordered. EDMS 13:52 Call Respiratory complete. bcj 14:11 Misc Boiler Inspector Order complete. lbd 14:12 PICC LINE INSERTION W/SITERITE Ordered. EDMS 14:12 -Blood Culture (Adults Only), peripheral from different site, or from device/port/PICC lbd etc. if present complete. 14:13 BLOOD CULTURES Ordered. EDMS 14:51 Tobramycin 500 mg IV at 500 mg/hr once ordered. ke 14:55 [facility] [place] Payment Agreement was scanned into [employer] and attached to record. mm15 15:53 Admission / Observation Status ordered. EDMS 15:53 CONSISTENT CARBOHYDRATES ordered. EDMS 17:30 heparin 100units/mL flush (PICC line) 2 ml IVP once; flush each port first with 10mL of jf3 NS followed by heparin ordered. 09/13 05:35 T-Sheet-- Draft Copy was scanned into [employer] and attached to record. lja 10:37 ECG/EKG was scanned into [employer] and attached to record. gb Administered Medications: 09/12 14:06 Drug: Albuterol-Ipratropium 1 neb [ipratropium-albuterol 0.5 mg-3 mg(2.5 mg base)/3 mL rs5 nebulization soln (1 neb)] Route: Nebulizer; 14:11 Drug: Albuterol-Ipratropium 1 neb [ipratropium-albuterol 0.5 mg-3 mg(2.5 mg base)/3 mL rs5 nebulization soln (1 neb)] Route: Nebulizer; 14:11 Follow up: Response: Nebulizer completed rs5 14:11 Follow up: Response: Nebulizer completed rs5 14:11 Follow up: Response: Nebulizer completed rs5 14:11 Drug: Albuterol-Ipratropium 1 neb [ipratropium-albuterol 0.5 mg-3 mg(2.5 mg base)/3 mL rs5 nebulization soln (1 neb)] Route: Nebulizer; 16:26 Drug: Tobramycin 500 mg {Note: RUNNING VIA PICC.} Route: IV; Rate: 500 mg/hr; Site: [facility] Implantable Access Device; 17:40 Follow up: IV Status: Completed infusion; IV Intake: 100ml [facility] Signatures: Dispatcher [employer] EDMS Leyla Gaona, Rippler Unit lbd Clayton Ramirez, RN RN Lillian Cueva, Reg Reg gb Maurizio Sheppard, RN RN Lion Gallo, FISH AND GAME WARDEN FISH AND GAME WARDEN Desiree Rai mm15 Giulia Fishman Michele RN Devin Peña mts, RN RN 3 Todd Matt RT rs5 The chart was reviewed and I authenticate all verbal orders and agree with the evaluation and treatment provided.Corrections: (The following items were deleted from the chart) 16:27 13:42 IV Saline Lock ordered. sharon andrade Attachments: 14:55 [facility] Payment Agreement mm15 09/13 05:35 T-Sheet-- Draft Copy [facility] 10:37 ECG/EKG Chart Complete MTDD
--- NOTE | 2016-09-14 18:43 | EDDOCDS ---
Physician Documentation [facility] Name: Jovanna Ocampo Age: 51 yrs Sex: Female : 1965 Arrival Date: 09/12/2016 Time: 13:09 Bed 19 Private MD: Felipa Lainez Disposition: 09/12/16 15:54 Hospitalization ordered by Sherri Francis for Inpatient Admission. Preliminary diagnosis is Cystic fibrosis with pulmonary manifestations. - Bed requested for M PED. - Status is Inpatient Admission. jf3 - Condition is Stable. - Problem is an acute exacerbation. - Symptoms are unchanged. Historical: - Allergies: SULFA (SULFONAMIDES); Codeine Sulfate; Fortaz; Aztreonam; CEPHALOSPORINS; Morphine; sulfa cross reactors; - Home Meds: 1. Dexilant 60 mg oral CpDB 1 cap once daily (Last dose: 09/12/2016) 2. Colace 100 mg oral cap 1 cap 2 times per day (Last dose: 09/12/2016) 3. pulmozyme (Last dose: 09/12/2016) 4. Nexium 40 mg Oral cpDR 1 cap once daily (Last dose: 09/12/2016) 5. Novolog 100 unit/mL Sub-Q soln pt hasn't used since she hasn't eaten (Last dose: 09/09/2016) 6. Lantus 100 unit/mL Sub-Q soln pt hasn't used since she hasn't eaten (Last dose: 09/09/2016) 7. Xopenex 1.25 mg/3 mL Nebulizer nebu (Last dose: 09/12/2016) 8. Claritin 10 mg Oral tab 1 tab once daily (Last dose: 09/12/2016) 9. Miralax 17 gram Oral pwpk 1 packet once daily (Last dose: 09/12/2016) 10. montserrat podhaler 28mg takes for one month every other month, off this month 11. Vitamin D3 oral 44754 units oral 3x week 12. vitamin k 100 mcg weekly 13. Amitiza 24 mcg oral cap 1 cap 2 times per day (Last dose: 09/12/2016) 14. Caltrate 600 + D 600 mg (1,500 mg)-800 unit oral chew daily (Last dose: 09/12/2016) 15. Kalydeco 150 mg oral tab 1 tab every 12 hours (Last dose: 09/12/2016) - PMHx: Cystic Fibrosis; Diabetes - IDDM: controlled; Arthritis; - PSHx: Appendectomy (1979); - Social history: No barriers to communication noted, The patient speaks fluent Emirati, Smoking status: other. - Family history: Not pertinent. - : The pt / caregiver states he / she is not on anticoagulants. Home medication list is obtained from the patient, a discharge med list. - Exposure Risk Screening:: None identified. Vital Signs: 09/12 13:11 BP 164 / 78; Pulse 104; Resp 24 S; Temp 97.9(T); Pulse Ox 91% on R/A; Weight 77.11 kg / dd6 170 lbs (R); Height 54 in. (137.16 cm) (R); 16:02 Pulse 108 MON; Pulse Ox 96% ; jf3 16:03 BP 160 / 88 (auto/); jf3 16:20 BP 155 / 61 (auto/); jf3 16:20 Pulse 104 MON; Pulse Ox 94% ; jf3 16:35 BP 152 / 71 (auto/); jf3 16:36 Pulse 102 MON; Pulse Ox 96% ; jf3 16:50 BP 139 / 63 (auto/); jf3 16:51 Pulse 100 MON; Pulse Ox 97% ; jf3 17:05 BP 134 / 64 (auto/); jf3 17:06 Pulse 104 MON; Pulse Ox 96% ; jf3 17:20 BP 133 / 63 (auto/); jf3 17:21 Pulse 100 MON; Pulse Ox 96% ; jf3 17:34 BP 141 / 68; Pulse 101; Resp 24; Temp 100.1(O); Pulse Ox 96% 3 lpm ; Pain 7/10; jf3 13:11 Body Mass Index 40.99 (77.11 kg, 137.16 cm) dd6 MDM: 13:42 -Blood Culture (Adults Only), peripheral from different site, or from device/port/PICC ke etc. if present ordered. 13:42 Heel Seat Flap Stapler/Pulse Ox/q 15 min VS ordered. ke 13:42 Oxygen at 4L/Min NC or Home dosage ordered. ke 13:42 Rhythm Strip to chart ordered. ke 13:42 CBC Ordered. EDMS 13:42 Basic Metabolic Profile Ordered. EDMS 13:42 CBC with Diff Ordered. EDMS 13:43 Liver Profile Ordered. EDMS 13:43 PT/INR Ordered. EDMS 13:43 -Blood Culture Ordered. EDMS 13:43 Chest, 2 View (pa\E\lat) Ordered. EDMS 13:43 ECG WITH READING ER PHYS+CARDIAG ordered. EDMS 13:49 Financial registration complete. mm15 13:49 Albuterol-Ipratropium 1 neb Nebulizer every 20 minutes x3 ordered. ke 13:49 Call Respiratory ordered. ke 13:50 Misc Radiation Safety Officer Order ordered. ke 13:51 Sputum Culture & Gram Stain Ordered. EDMS 13:51 Lactic Acid (Garcia tube on ice) Ordered. EDMS 13:52 Call Respiratory complete. bcj 14:11 Misc Radiation Safety Officer Order complete. lbd 14:12 PICC LINE INSERTION W/SITERITE Ordered. EDMS 14:12 -Blood Culture (Adults Only), peripheral from different site, or from device/port/PICC lbd etc. if present complete. 14:13 BLOOD CULTURES Ordered. EDMS 14:51 Tobramycin 500 mg IV at 500 mg/hr once ordered. ke 14:55 [facility] [place] Payment Agreement was scanned into [employer] and attached to record. mm15 15:53 Admission / Observation Status ordered. EDMS 15:53 CONSISTENT CARBOHYDRATES ordered. EDMS 17:30 heparin 100units/mL flush (PICC line) 2 ml IVP once; flush each port first with 10mL of jf3 NS followed by heparin ordered. 09/13 05:35 T-Sheet-- Draft Copy was scanned into [employer] and attached to record. lja 10:37 ECG/EKG was scanned into [employer] and attached to record. gb Administered Medications: 09/12 14:06 Drug: Albuterol-Ipratropium 1 neb [ipratropium-albuterol 0.5 mg-3 mg(2.5 mg base)/3 mL rs5 nebulization soln (1 neb)] Route: Nebulizer; 14:11 Drug: Albuterol-Ipratropium 1 neb [ipratropium-albuterol 0.5 mg-3 mg(2.5 mg base)/3 mL rs5 nebulization soln (1 neb)] Route: Nebulizer; 14:11 Follow up: Response: Nebulizer completed rs5 14:11 Follow up: Response: Nebulizer completed rs5 14:11 Follow up: Response: Nebulizer completed rs5 14:11 Drug: Albuterol-Ipratropium 1 neb [ipratropium-albuterol 0.5 mg-3 mg(2.5 mg base)/3 mL rs5 nebulization soln (1 neb)] Route: Nebulizer; 16:26 Drug: Tobramycin 500 mg {Note: RUNNING VIA PICC.} Route: IV; Rate: 500 mg/hr; Site: [facility] Implantable Access Device; 17:40 Follow up: IV Status: Completed infusion; IV Intake: 100ml [facility] Signatures: Dispatcher [employer] EDMS Leyla Gaona, [place] Unit lbd Clayton Ramirez, RN RN Lillian Cueva, Reg Reg gb Maurizio Sheppard, RN RN Lion Gallo, CONSTRUCTION MANAGEMENT ASSISTANT CONSTRUCTION MANAGEMENT ASSISTANT Desiree Rai mm15 Giulia Fishman Michele RN Devin Peña mts, RN RN 3 Todd Matt RT rs5 The chart was reviewed and I authenticate all verbal orders and agree with the evaluation and treatment provided.Corrections: (The following items were deleted from the chart) 16:27 13:42 IV Saline Lock ordered. sharon andrade Attachments: 14:55 [facility] Payment Agreement mm15 09/13 05:35 T-Sheet-- Draft Copy [facility] 10:37 ECG/EKG Chart Complete MTDD
--- NOTE | 2016-09-14 18:43 | EDDOCDS ---
Nurse's Notes [facility] Name: Jovanna Ocampo Age: 51 yrs Sex: Female : 1965 Arrival Date: 09/12/2016 Time: 13:09 Bed 19 Private MD: Felipa Lainez Diagnosis: Cystic fibrosis with pulmonary manifestations Presentation: 09/12 13:17 Presenting complaint: Patient states: progressively getting worse with breathing dy difficulty. has cystic fibrosis. was unable to get into Dr. Francis. Adult Sepsis Screening: The patient does not have new or worsening altered mentation. Patient has a respiratory rate of greater than or equal to 22 (1 point). Systolic blood pressure is greater than 100. Patient has a qSOFA score of 2. Patient has cough and/or SOB- Positive Sepsis Screen. Notified Vishnu Funez MD Patient made SHAWN Level 2. Patient placed in exam room. Charge nurse notified. Suicide/Homicide risk assessment- the patient denies having any suicidal and/or homicidal ideations and does not present with any other emotional, behavioral or mental health complaints. Status: Patient is not a health services rn or dependent. Transition of care: patient was not received from another setting of care. 13:17 Acuity: SHAWN Level 2 dy 13:17 Method Of Arrival: Walkin/Carried/Asstd dy Triage Assessment: 13:52 General: Appears distressed, Behavior is cooperative. Pain: Location: lungs Pain jf3 currently is 6 out of 10 on a pain scale. Pt Declines HIV testing. The patient is triaged at the bedside. See Assessment in Nurses Notes section of ED record. Respiratory: Airway is patent Respiratory effort is labored, Respiratory pattern is hyperventilation Breath sounds are diminished bilaterally. Reports shortness of breath at rest cough that is persistent the patient has moderate shortness of breath. Derm: Skin is normal. Historical: - Allergies: SULFA (SULFONAMIDES); Codeine Sulfate; Fortaz; Aztreonam; CEPHALOSPORINS; Morphine; sulfa cross reactors; - Home Meds: 1. Dexilant 60 mg oral CpDB 1 cap once daily (Last dose: 09/12/2016) 2. Colace 100 mg oral cap 1 cap 2 times per day (Last dose: 09/12/2016) 3. pulmozyme (Last dose: 09/12/2016) 4. Nexium 40 mg Oral cpDR 1 cap once daily (Last dose: 09/12/2016) 5. Novolog 100 unit/mL Sub-Q soln pt hasn't used since she hasn't eaten (Last dose: 09/09/2016) 6. Lantus 100 unit/mL Sub-Q soln pt hasn't used since she hasn't eaten (Last dose: 09/09/2016) 7. Xopenex 1.25 mg/3 mL Nebulizer nebu (Last dose: 09/12/2016) 8. Claritin 10 mg Oral tab 1 tab once daily (Last dose: 09/12/2016) 9. Miralax 17 gram Oral pwpk 1 packet once daily (Last dose: 09/12/2016) 10. montserrat podhaler 28mg takes for one month every other month, off this month 11. Vitamin D3 oral 73630 units oral 3x week 12. vitamin k 100 mcg weekly 13. Amitiza 24 mcg oral cap 1 cap 2 times per day (Last dose: 09/12/2016) 14. Caltrate 600 + D 600 mg (1,500 mg)-800 unit oral chew daily (Last dose: 09/12/2016) 15. Kalydeco 150 mg oral tab 1 tab every 12 hours (Last dose: 09/12/2016) - PMHx: Cystic Fibrosis; Diabetes - IDDM: controlled; Arthritis; - PSHx: Appendectomy (1979); - Social history: No barriers to communication noted, The patient speaks fluent Canadian, Smoking status: other. - Family history: Not pertinent. - : The pt / caregiver states he / she is not on anticoagulants. Home medication list is obtained from the patient, a discharge med list. - Exposure Risk Screening:: None identified. Screenin:02 Screening information is obtained from the patient. Fall risk: No risks identified. jf3 Assistance ADL's: requires no assistance with activities of daily living. Abuse/DV Screen: The patient / caregiver reports he/she is: not in a situation that causes fear, pain or injury. Nutritional screening: No deficits noted. Advance Directives: Currently, there is no health care proxy. There is no active DNR order. home support is adequate. Assessment: 13:55 General: Appears distressed, Behavior is cooperative. Pain: Location: lungs Pain jf3 currently is 6 out of 10 on a pain scale. Neurological: Level of Consciousness is awake, alert, Oriented to person, place, time. Cardiovascular: Capillary refill < 3 seconds Heart tones S1 S2 present Chest pain is denied. Respiratory: Airway is patent Respiratory effort is labored, Respiratory pattern is hyperventilation Breath sounds are diminished bilaterally. Reports shortness of breath cough that is persistent labored breathing the patient has moderate shortness of breath. Derm: Skin is normal. 14:45 General: pt to director of cath lab for PICC line. jf3 16:15 General: Appears in no apparent distress, comfortable, Behavior is cooperative, pt jf3 returned from director of cath lab. Pain: Pain currently is 6 out of 10 on a pain scale. Neurological: Level of Consciousness is awake, alert, Oriented to person, place, time. Cardiovascular: Capillary refill < 3 seconds Chest pain is denied. Respiratory: Airway is patent Respiratory effort is even, unlabored, Respiratory pattern is regular, symmetrical, Reports shortness of breath cough that is. Derm: Skin is normal. 16:45 General: called placed to PEDs for report, Elizabeth states the nurse is not there at this jf3 time and a nurse will do the admission first. States they will call ED when ready. 17:23 General: Admission nurse in room with pt at this time. Pt coughing decreased. jf3 respirations appear improved and unlabored. Will continue to monitor. 17:34 General: Appears in no apparent distress, comfortable, Behavior is cooperative. Pain: jf3 Pain currently is 7 out of 10 on a pain scale. Neurological: Level of Consciousness is awake, alert, Oriented to person, place, time. Cardiovascular: Capillary refill < 3 seconds Heart tones S1 S2 present. Respiratory: Airway is patent Respiratory effort is even, unlabored, Respiratory pattern is regular, symmetrical, Breath sounds are coarse Breath sounds are diminished bilaterally. Reports cough that is persistent. Derm: Skin is normal. Vital Signs: 13:11 BP 164 / 78; Pulse 104; Resp 24 S; Temp 97.9(T); Pulse Ox 91% on R/A; Weight 77.11 kg dd6 (R); Height 54 in. (137.16 cm) (R); 16:02 Pulse 108 MON; Pulse Ox 96% ; jf3 16:03 BP 160 / 88 (auto/); jf3 16:20 BP 155 / 61 (auto/); jf3 16:20 Pulse 104 MON; Pulse Ox 94% ; jf3 16:35 BP 152 / 71 (auto/); jf3 16:36 Pulse 102 MON; Pulse Ox 96% ; jf3 16:50 BP 139 / 63 (auto/); jf3 16:51 Pulse 100 MON; Pulse Ox 97% ; jf3 17:05 BP 134 / 64 (auto/); jf3 17:06 Pulse 104 MON; Pulse Ox 96% ; jf3 17:20 BP 133 / 63 (auto/); jf3 17:21 Pulse 100 MON; Pulse Ox 96% ; jf3 17:34 BP 141 / 68; Pulse 101; Resp 24; Temp 100.1(O); Pulse Ox 96% 3 lpm ; Pain 7/10; jf3 13:11 Body Mass Index 40.99 (77.11 kg, 137.16 cm) dd6 Vitals: 13:11 Log In Time: September 12, 2016 at 13:09. dd6 ED Course: 13:10 Patient visited by Mark No PCA. dd6 13:10 Patient moved to Waiting dd6 13:11 Felipa Lainez is Private Physician. dd6 13:12 Patient moved to Pre RCE dd6 13:19 Triage Initiated dy 13:21 Patient moved to 19 dy 13:26 [facility] ke 13:26 Patient visited by Lion Jaquez FNP. ke 13:26 Patient visited by Lion Jaquez FNP. ke 13:55 The patient / caregiver is instructed regarding the plan of care and ED course. jf3 13:57 Patient visited by Devin Salazar RN. jf3 14:16 Patient visited by Tracey Nicole PCA. jlf 14:16 Patient visited by Tracey Nicole PCA. jlf 14:16 EKG done. (by ED staff). Reviewed by Lion FRANCIS. jlf 14:55 Patient visited by Lion Jaquez FNP. ke 14:55 [facility] [place] [place] Payment Agreement was scanned into [employer] and attached to record. mm15 15:27 Chest, 2 View (pa\E\lat) Returned. EDMS 15:33 Patient visited by Lion Jaquez FNP. ke 15:54 Sherri Francis is Hospitalizing Provider. ke 16:02 Accessed PICC line placed by director of cath lab. No procedures done that require assistance. jf3 17:24 Patient visited by Devin Salazar RN. 3 17:44 PICC LINE INSERTION W/SITERITE Returned. EDMS 09/13 05:35 T-Sheet-- Draft Copy was scanned into [employer] and attached to record. lja 10:37 ECG/EKG was scanned into [employer] and attached to record. gb Administered Medications: 09/12 14:06 Drug: Albuterol-Ipratropium 1 neb [ipratropium-albuterol 0.5 mg-3 mg(2.5 mg base)/3 mL rs5 nebulization soln (1 neb)] Route: Nebulizer; 14:11 Drug: Albuterol-Ipratropium 1 neb [ipratropium-albuterol 0.5 mg-3 mg(2.5 mg base)/3 mL rs5 nebulization soln (1 neb)] Route: Nebulizer; 14:11 Follow up: Response: Nebulizer completed rs5 14:11 Follow up: Response: Nebulizer completed rs5 14:11 Follow up: Response: Nebulizer completed rs5 14:11 Drug: Albuterol-Ipratropium 1 neb [ipratropium-albuterol 0.5 mg-3 mg(2.5 mg base)/3 mL rs5 nebulization soln (1 neb)] Route: Nebulizer; 16:26 Drug: Tobramycin 500 mg {Note: RUNNING VIA PICC.} Route: IV; Rate: 500 mg/hr; Site: [facility] Implantable Access Device; 17:40 Follow up: IV Status: Completed infusion; IV Intake: 100ml 3 Intake: 17:40 IV: 100.00ml; Total: 100.00ml. 3 RT: 14:12 Initial Med Neb Given as ordered Subsequent Med Neb Given as ordered Patient was rs5 reinforced on procedure Patient tolerated procedure well without adverse effect. Respiratory: Respiratory effort is even, unlabored, Respiratory pattern is regular symmetrical, Breath sounds with crackles bilaterally. Breath sounds are diminished Breath sounds with wheezes Reports cough that is productive. Order Results: Lab Order: Basic Metabolic Profile; SPEC'M 09/12/16 16:08 Test: GLUCOSE, FASTING; Value: 178; Range: 70-105; Abnormal: Above high normal; Units: MG/DL; Status: F Test: BLOOD UREA NITROGEN; Value: 12; Range: 7-18; Units: MG/DL; Status: F Test: CREATININE FOR GFR; Value: 0.78; Range: 0.55-1.02; Units: MG/DL; Status: F Test: GLOMERULAR FILTRATION RATE; Value: > 60.0; Range: >51; Status: F Test: SODIUM LEVEL; Value: 142; Range: 136-145; Units: MEQ/L; Status: F Test: POTASSIUM SERUM; Value: 3.7; Range: 3.5-5.1; Units: MEQ/L; Status: F Test: CHLORIDE LEVEL; Value: 103; Range: 98-107; Units: MEQ/L; Status: F Test: CARBON DIOXIDE LEVEL; Value: 27; Range: 21-32; Units: MEQ/L; Status: F Test: ANION GAP; Value: 12; Range: 8-16; Units: MEQ/L; Status: F Test: CALCIUM LEVEL; Value: 8.3; Range: 8.5-10.1; Abnormal: Below low normal; Units: MG/DL; Status: F Test Note: ; Units are mL/min/1.73 m2 Chronic Kidney Disease Staging per NKF: Stage I & II GFR >=60 Normal to Mildly Decreased Stage III GFR 30-59 Moderately Decreased Stage IV GFR 15-29 Severely Decreased Stage V GFR <15 Very Little GFR Left ESRD GFR <15 on FARM 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 Lab Order: CBC with Diff; SPEC'M 09/12/16 16:08 Test: WHITE BLOOD COUNT; Value: 10.1; Range: 4.0-10.0; Abnormal: Above high normal; Units: K/mm3; Status: F Test: RED BLOOD COUNT; Value: 4.74; Range: 4.00-5.40; Units: M/mm3; Status: F Test: HEMOGLOBIN; Value: 12.8; Range: 12.0-16.0; Units: g/dl; Status: F Test: HEMATOCRIT; Value: 38.7; Range: 36.0-47.0; Units: %; Status: F Test: MEAN CORPUSCULAR VOLUME; Value: 81.6; Range: 80.0-96.0; Units: fl; Status: F Test: MEAN CORPUSCULAR HEMOGLOBIN; Value: 27.0; Range: 27.0-33.0; Units: pg; Status: F Test: MEAN CORPUSCULAR HGB CONC; Value: 33.0; Range: 32.0-36.5; Units: g/dl; Status: F Test: RED CELL DISTRIBUTION WIDTH; Value: 13.3; Range: 11.5-14.5; Units: %; Status: F Test: PLATELET COUNT, AUTOMATED; Value: 259; Range: 150-450; Units: k/mm3; Status: F Test: NEUTROPHILS %; Value: 80.5; Range: 36.0-66.0; Abnormal: Above high normal; Units: %; Status: F Test: LYMPH %; Value: 12.9; Range: 24.0-44.0; Abnormal: Below low normal; Units: %; Status: F Test: MONO %; Value: 3.7; Range: 0.0-5.0; Units: %; Status: F Test: EOS %; Value: 1.0; Range: 0.0-3.0; Units: %; Status: F Test: BASO %; Value: 0.8; Range: 0.0-1.0; Units: %; Status: F Test: LARGE UNSTAINED CELL %; Value: 1.1; Range: 0.0-4.0; Units: %; Status: F Test: NEUTROPHILS #; Value: 8.1; Range: 1.8-7.7; Abnormal: Above high normal; Units: K/mm3; Status: F Test: LYMPH #; Value: 1.4; Range: 1.5-4.5; Abnormal: Below low normal; Units: K/mm3; Status: F Test: MONO #; Value: 0.4; Range: 0.0-0.8; Units: K/mm3; Status: F Test: EOS #; Value: 0.1; Range: 0.0-0.50; Units: K/mm3; Status: F Test: BASO #; Value: 0.1; Range: 0.0-0.2; Units: K/mm3; Status: F Test: LARGE UNSTAINED CELL #; Value: 0.1; Range: 0.0-0.4; Units: K/mm3; Status: F Lab Order: Liver Profile; [facility] 09/12/16 16:08 Test: AST/SGOT; Value: 28; Range: 15-37; Units: U/L; Status: F Test: ALT/SGPT; Value: 26; Range: 12-78; Units: U/L; Status: F Test: ALKALINE PHOSPHATASE; Value: 136; Range: 45-117; Abnormal: Above high normal; Units: U/L; Status: F Test: BILIRUBIN,TOTAL; Value: 0.4; Range: 0.2-1.0; Units: MG/DL; Status: F Test: BILIRUBIN,DIRECT; Value: 0.2; Range: 0.0-0.2; Units: MG/DL; Status: F Test: TOTAL PROTEIN; Value: 7.1; Range: 6.4-8.2; Units: GM/DL; Status: F Test: ALBUMIN; Value: 3.6; Range: 3.2-5.2; Units: GM/DL; Status: F Test: ALBUMIN/GLOBULIN RATIO; Value: 1.03; Range: 1.00-1.93; Status: F Lab Order: PT/INR; [facility] 09/12/16 16:08 Test: PROTHROMBIN TIME; Value: 14.9; Range: 12.3-14.5; Abnormal: Above high normal; Units: SECONDS; Status: F Test: INR; Value: 1.16; Status: F Test Note: ; THERAPUTIC HUMAN INR VALUES INDICATIONS NORMAL RANGES PROPHYLAXIS/TREATMENT OF: VENOUS THROMBOSIS 2.0-3.0 PULMONARY EMBOLISM 2.0-3.0 PREVENTION OF SYSTEMIC EMBOLISM FROM: TISSUE HEART VALVES 2.0-3.0 ACUTE MYOCARDIAL INFARCTION 2.0-3.0 VALVULAR HEART DISEASE 2.0-3.0 ATRIAL FIBRILLATION 2.0-3.0 MECHANICAL VALVES(HIGH RISK) 2.5-3.5 RECURRENT MYOCARDIAL INFARCTION 2.5-3.5 Lab Order: Lactic Acid (Garcia tube on ice); [facility] 09/12/16 16:08 Test: LACTIC ACID LEVEL, LACTATE; Value: 1.6; Range: 0.4-2.0; Units: MMOL/L; Status: F Radiology Order: Chest, 2 View (pa\E\lat) Test: Chest, 2 View (pa\E\lat) REASON FOR EXAMINATION: Shortness of Breath; ; CHEST, PA AND LATERAL VIEWS:; ; There is mild diffuse bilateral interstitial coarsening, unchanged, compatible; with interstitial fibrosis. On the prior study I note the patient has clinical; history of cystic fibrosis.; ; There are no acute infiltrates.; ; There is chronic effacement of the left costophrenic angle, unchanged, likely; pleural adhesion.; ; Cardiac size is normal. The oliver, mediastinum, and bony thorax are unremarkable.; ; ; IMPRESSION:; Chronic interstitial coarsening and chronic effacement of the left costophrenic; angle.; ; There are no acute cardiopulmonary findings.; ; ; ; ; ; Unreviewed; Radiology Order: PICC LINE INSERTION W/SITERITE Test: PICC LINE INSERTION W/SITERITE REASON FOR EXAMINATION: NO IV ACSESS; SINGLE LUMEN PICC LINE INSERTION:; ; The patient was referred for single lumen PICC line insertion. Informed consent; was obtained.; ; Under sterile conditions and after satisfactory administration of local; anesthesia, using guidance from the [employer] device access to the right brachial; vein is obtained. Over a wire an introducer sheath is placed. Wire could not be; easily passed through the right axillary vein. I injected contrast to perform a; venogram which showed a torturous course of the right axillary vein, which was; slightly narrowed. Utilizing a glide wire within the single lumen PICC line, the; PICC line was passed through the right axillary vein and the tip was positioned; in the superior vena cava via fluoroscopy. Hemostasis was obtained. There were no; immediate complications. 2.8 cm minutes of fluoroscopy time was utilized.; ; ; ; Unreviewed; Outcome: 15:54 Decision to Hospitalize by Provider. ke 17:20 Admission hand-off: Report called to MARYANA Olea on PEDs. jf3 17:39 Discharge Assessment: patient administered narcotics - no. The following High Risk 3 Discharge criteria are identified: None. Admitted to Pediatrics accompanied by tech, via stretcher, with chart. Condition: stable. No special radiology studies were completed. Property :Personal belongings accompany Pt. 17:42 Patient left the ED. jf3 Signatures: Dispatcher [employer] EDLillian Bernstein, Reg Maurizio Read, RN RN dy Lion Jaquez, SOLAR MECHANICAL ENGINEER SOLAR MECHANICAL ENGINEER ke Mark No, SPRAY WORKER SPRAY WORKER dd6 Todd Matt,RT RT rs5 Desiree Shrestha mm15 Tracey Nicole, SPRAY WORKER SPRAY WORKER jlf Gianl, Giulia Salazar,Devin,RN RN jf3 Chart Complete MTDD
[2016-09-14 20:00] VITALS: BP 112/58
[2016-09-14] MEDS: LORATADINE 10 MG TAB PO SCH (20:58)
[2016-09-14] MEDS: LEVEMIR (INSULIN DETEMIR) 1 UNITS/0.01ML SC SCH (20:59)
[2016-09-15] MEDS: ADVAIR DISKUS 500/50 INH PWD INH SCH ×2 (00:02→08:43)
[2016-09-15 01:15] VITALS: BP 118/56
[2016-09-15] MEDS: D5W/0.45% SODIUM CHLORIDE 1,000 ML IV SCH ×2 (01:31→12:32)
[2016-09-15] MEDS: ACETAMINOPHEN TAB 650MG DOSE (2X325MG) PO PRN ×4 (01:31→20:52)
[2016-09-15] MEDS: IMIPENEM/CILASTATIN 1,000 MG in NS 250 ML IV SCH ×4 (01:32→20:30)
[2016-09-15] MEDS: SODIUM CHLORIDE 0.9% INJ 10 ML SYR IV SCH ×2 (05:12→17:39)
[2016-09-15 07:25] LABS: BASO % 0.9 % (0.0-1.0); EOS # 0.2 K/mm3 (0.0-0.50); EOS % 7.4 % (0.0-3.0); LARGE UNSTAINED CELL # 0.1 K/mm3 (0.0-0.4); LARGE UNSTAINED CELL % 3.6 % (0.0-4.0); LYMPH # 0.8 K/mm3 (1.5-4.5); LYMPH % 33.9 % (24.0-44.0); MEAN CORPUSCULAR HEMOGLOBIN 26.7 pg (27.0-33.0); MEAN CORPUSCULAR HGB CONC 32.1 g/dl (32.0-36.5); MONO # 0.1 K/mm3 (0.0-0.8); MONO % 5.9 % (0.0-5.0); NEUTROPHILS # 1.1 K/mm3 (1.8-7.7); NEUTROPHILS % 48.2 % (36.0-66.0); PLATELET COUNT, AUTOMATED 178 k/mm3 (150-450); RED CELL DISTRIBUTION WIDTH 12.3 % (11.5-14.5); WHITE BLOOD COUNT 2.3 K/mm3 (4.0-10.0)
[2016-09-15] MEDS: HumaLOG INSULIN (NovoLOG) PER UNIT SC SCH ×4 (07:30→20:32)
[2016-09-15 07:43] LABS: ANION GAP 7 MEQ/L (8-16); BLOOD UREA NITROGEN 5 MG/DL (7-18); CALCIUM LEVEL 7.8 MG/DL (8.5-10.1); CARBON DIOXIDE LEVEL 30 MEQ/L (21-32); CHLORIDE LEVEL 107 MEQ/L (98-107); CREATININE FOR GFR 0.63 MG/DL (0.55-1.02); GLOMERULAR FILTRATION RATE > 60.0 (>51); GLUCOSE, FASTING 78 MG/DL (70-105); POTASSIUM SERUM 4.2 MEQ/L (3.5-5.1); SODIUM LEVEL 144 MEQ/L (136-145)
[2016-09-15 08:00] VITALS: BP 118/55
[2016-09-15] MEDS: PANTOPRAZOLE 40MG TAB (PROTONIX) PO SCH (08:30)
[2016-09-15] MEDS: MIRALAX *UNIT DOSE* 17GM PACKET PO SCH (08:30)
[2016-09-15] MEDS: DOCUSATE SODIUM 100 MG CAP PO SCH ×2 (08:30→20:31)
[2016-09-15] MEDS: MULTIVITAMINS/MINERALS THERAP 1 TAB PO SCH (08:30)
[2016-09-15] MEDS: ASCORBIC ACID 500 MG TAB PO SCH ×2 (08:30→20:31)
[2016-09-15] MEDS: KALYDECO PO SCH ×2 (08:31→20:52)
[2016-09-15] MEDS: ENOXAPARIN 40 MG/0.4 ML SYRINGE (J1650) SC SCH (08:31)
[2016-09-15] MEDS: VITAMIN D 50,000 UNITS CAPSULE (ERGOCALCIFEROL 1.25MG) PO SCH ×2 (08:32→20:31)
[2016-09-15] MEDS: CREON-24 CAPSULE PO SCH ×3 (08:32→17:38)
[2016-09-15] MEDS: LEVALBUTEROL 1.25 MG/0.5 ML CONCENTRATE NEB INH SCH ×3 (08:42→19:21)
[2016-09-15] MEDS: DORNASE INHALATION SOLN 1 MG/ML 2.5 ML AMP INH SCH ×2 (08:42→19:21)
[2016-09-15] MEDS: TOBRAMYCIN INH SCH ×2 (08:43→20:36)
[2016-09-15 12:00] VITALS: BP 111/57
[2016-09-15 16:00] VITALS: BP 119/87
[2016-09-15] MEDS: TOBRAMYCIN SULF IV SCH (16:21)
[2016-09-15] MEDS: D5W IV SCH (16:21)
[2016-09-15 20:00] VITALS: BP 119/58
[2016-09-15] MEDS: LEVEMIR (INSULIN DETEMIR) 1 UNITS/0.01ML SC SCH (20:32)
[2016-09-15] MEDS: LORATADINE 10 MG TAB PO SCH (20:51)
[2016-09-16] VITALS: BP 114/55
[2016-09-16] MEDS: IMIPENEM/CILASTATIN 1,000 MG in NS 250 ML IV SCH ×4 (01:50→20:53)
[2016-09-16] MEDS: ACETAMINOPHEN TAB 650MG DOSE (2X325MG) PO PRN ×4 (03:18→20:56)
[2016-09-16] MEDS: SODIUM CHLORIDE 0.9% INJ 10 ML SYR IV SCH ×2 (05:06→17:43)
[2016-09-16] MEDS: TOBRAMYCIN INH SCH ×2 (07:25→19:35)
[2016-09-16] MEDS: ADVAIR DISKUS 500/50 INH PWD INH SCH ×2 (07:25→19:34)
[2016-09-16] MEDS: DORNASE INHALATION SOLN 1 MG/ML 2.5 ML AMP INH SCH ×2 (07:25→19:34)
[2016-09-16] MEDS: LEVALBUTEROL 1.25 MG/0.5 ML CONCENTRATE NEB INH SCH ×3 (07:25→19:34)
[2016-09-16 08:00] VITALS: BP 141/63
[2016-09-16] MEDS: CREON-24 CAPSULE PO SCH ×3 (08:28→17:44)
[2016-09-16] MEDS: DOCUSATE SODIUM 100 MG CAP PO SCH ×2 (08:28→20:53)
[2016-09-16] MEDS: MULTIVITAMINS/MINERALS THERAP 1 TAB PO SCH (08:29)
[2016-09-16] MEDS: ASCORBIC ACID 500 MG TAB PO SCH ×2 (08:29→20:53)
[2016-09-16] MEDS: MIRALAX *UNIT DOSE* 17GM PACKET PO SCH (08:29)
[2016-09-16] MEDS: PANTOPRAZOLE 40MG TAB (PROTONIX) PO SCH (08:29)
[2016-09-16] MEDS: KALYDECO PO SCH ×2 (08:30→21:05)
[2016-09-16] MEDS: ENOXAPARIN 40 MG/0.4 ML SYRINGE (J1650) SC SCH (08:30)
[2016-09-16] MEDS: HumaLOG INSULIN (NovoLOG) PER UNIT SC SCH ×4 (08:45→21:00)
[2016-09-16] MEDS ORDERED: LEVALBUTEROL 1.25 MG/0.5 ML CONCENTRATE NEB INH PRN (09:45)
[2016-09-16] MEDS: ONDANSETRON 4MG/2ML VIAL (J2405) IV PRN (09:55)
[2016-09-16] MEDS: SODIUM CHLORIDE 0.9% INJ 10 ML SYR IV PRN ×2 (10:29→22:25)
[2016-09-16 12:00] VITALS: BP 140/66
[2016-09-16] MEDS: TOBRAMYCIN SULF IV SCH (15:56)
[2016-09-16] MEDS: D5W IV SCH (15:56)
[2016-09-16 16:00] VITALS: BP 156/77
[2016-09-16 20:00] VITALS: BP 123/61
[2016-09-16] MEDS: LORATADINE 10 MG TAB PO SCH (20:53)
[2016-09-16] MEDS: LEVEMIR (INSULIN DETEMIR) 1 UNITS/0.01ML SC SCH (20:54)
[2016-09-17] VITALS: BP 118/61
[2016-09-17] MEDS: IMIPENEM/CILASTATIN 1,000 MG in NS 250 ML IV SCH ×4 (02:10→20:07)
[2016-09-17] MEDS: SODIUM CHLORIDE 0.9% INJ 10 ML SYR IV PRN ×4 (03:22→21:53)
[2016-09-17] MEDS: SODIUM CHLORIDE 0.9% INJ 10 ML SYR IV SCH ×2 (04:25→17:00)
[2016-09-17] MEDS: HumaLOG INSULIN (NovoLOG) PER UNIT SC SCH ×4 (07:30→20:58)
[2016-09-17] MEDS: MIRALAX *UNIT DOSE* 17GM PACKET PO SCH (07:53)
[2016-09-17] MEDS: KALYDECO PO SCH ×2 (07:53→21:00)
[2016-09-17] MEDS: CREON-24 CAPSULE PO SCH ×3 (07:53→17:49)
[2016-09-17] MEDS: DOCUSATE SODIUM 100 MG CAP PO SCH ×2 (07:54→20:58)
[2016-09-17] MEDS: ASCORBIC ACID 500 MG TAB PO SCH ×2 (07:54→20:58)
[2016-09-17] MEDS: MULTIVITAMINS/MINERALS THERAP 1 TAB PO SCH (07:54)
[2016-09-17] MEDS: ENOXAPARIN 40 MG/0.4 ML SYRINGE (J1650) SC SCH (07:54)
[2016-09-17] MEDS: PANTOPRAZOLE 40MG TAB (PROTONIX) PO SCH (07:54)
[2016-09-17 08:00] VITALS: BP 147/81
[2016-09-17] MEDS: LEVALBUTEROL 1.25 MG/0.5 ML CONCENTRATE NEB INH SCH ×3 (08:03→19:53)
[2016-09-17] MEDS: ADVAIR DISKUS 500/50 INH PWD INH SCH ×2 (08:03→19:45)
[2016-09-17] MEDS: TOBRAMYCIN INH SCH ×2 (08:04→19:45)
[2016-09-17] MEDS: DORNASE INHALATION SOLN 1 MG/ML 2.5 ML AMP INH SCH ×2 (08:04→19:46)
[2016-09-17] MEDS: VITAMIN D 50,000 UNITS CAPSULE (ERGOCALCIFEROL 1.25MG) PO SCH (09:00)
[2016-09-17] MEDS: D5W IV SCH (15:49)
[2016-09-17] MEDS: TOBRAMYCIN SULF IV SCH (15:49)
[2016-09-17] MEDS: ACETAMINOPHEN TAB 650MG DOSE (2X325MG) PO PRN ×2 (15:55→20:57)
[2016-09-17 16:00] VITALS: BP 150/70
[2016-09-17 20:00] VITALS: BP 135/68
[2016-09-17] MEDS: LORATADINE 10 MG TAB PO SCH (20:57)
[2016-09-17] MEDS: LEVEMIR (INSULIN DETEMIR) 1 UNITS/0.01ML SC SCH (21:00)
[2016-09-18] MEDS: IMIPENEM/CILASTATIN 1,000 MG in NS 250 ML IV SCH ×4 (01:38→20:11)
[2016-09-18] MEDS: SODIUM CHLORIDE 0.9% INJ 10 ML SYR IV SCH ×2 (03:00→17:14)
[2016-09-18 08:30] VITALS: BP 149/74
[2016-09-18] MEDS: LEVALBUTEROL 1.25 MG/0.5 ML CONCENTRATE NEB INH SCH ×3 (08:33→19:52)
[2016-09-18] MEDS: TOBRAMYCIN INH SCH ×2 (08:33→19:52)
[2016-09-18] MEDS: DORNASE INHALATION SOLN 1 MG/ML 2.5 ML AMP INH SCH ×2 (08:34→19:52)
[2016-09-18] MEDS: MIRALAX *UNIT DOSE* 17GM PACKET PO SCH (08:37)
[2016-09-18] MEDS: PHYTONADIONE 5 MG TAB PO SCH (08:38)
[2016-09-18] MEDS: ASCORBIC ACID 500 MG TAB PO SCH ×2 (08:38→21:43)
[2016-09-18] MEDS: PANTOPRAZOLE 40MG TAB (PROTONIX) PO SCH (08:38)
[2016-09-18] MEDS: KALYDECO PO SCH ×2 (08:38→21:43)
[2016-09-18] MEDS: DOCUSATE SODIUM 100 MG CAP PO SCH ×2 (08:39→21:43)
[2016-09-18] MEDS: MULTIVITAMINS/MINERALS THERAP 1 TAB PO SCH (08:39)
[2016-09-18] MEDS: CREON-24 CAPSULE PO SCH ×3 (08:40→18:36)
[2016-09-18] MEDS: ENOXAPARIN 40 MG/0.4 ML SYRINGE (J1650) SC SCH (08:40)
[2016-09-18] MEDS: HumaLOG INSULIN (NovoLOG) PER UNIT SC SCH ×4 (08:44→21:00)
[2016-09-18] MEDS: SODIUM CHLORIDE 0.9% INJ 10 ML SYR IV PRN ×2 (08:44→21:44)
[2016-09-18] MEDS: ONDANSETRON 4MG/2ML VIAL (J2405) IV PRN (10:06)
[2016-09-18] MEDS: ADVAIR DISKUS 500/50 INH PWD INH SCH ×2 (11:45→19:38)
[2016-09-18] MEDS: TOBRAMYCIN SULF IV SCH (15:27)
[2016-09-18] MEDS: D5W IV SCH (15:27)
[2016-09-18 16:00] VITALS: BP 136/72
[2016-09-18 20:00] VITALS: BP 141/65
[2016-09-18] MEDS: LEVEMIR (INSULIN DETEMIR) 1 UNITS/0.01ML SC SCH (21:43)
[2016-09-18] MEDS: LORATADINE 10 MG TAB PO SCH (21:43)
[2016-09-19] MEDS: IMIPENEM/CILASTATIN 1,000 MG in NS 250 ML IV SCH ×4 (02:35→20:51)
[2016-09-19 04:00] VITALS: BP 130/68
[2016-09-19] MEDS: SODIUM CHLORIDE 0.9% INJ 10 ML SYR IV PRN ×3 (04:04→22:51)
[2016-09-19] MEDS: SODIUM CHLORIDE 0.9% INJ 10 ML SYR IV SCH ×2 (06:00→16:45)
[2016-09-19 08:00] VITALS: BP 137/73
[2016-09-19] MEDS: LEVALBUTEROL 1.25 MG/0.5 ML CONCENTRATE NEB INH SCH ×3 (08:25→20:55)
[2016-09-19] MEDS: HumaLOG INSULIN (NovoLOG) PER UNIT SC SCH ×4 (08:44→20:53)
[2016-09-19] MEDS: MULTIVITAMINS/MINERALS THERAP 1 TAB PO SCH (08:45)
[2016-09-19] MEDS: VITAMIN D 50,000 UNITS CAPSULE (ERGOCALCIFEROL 1.25MG) PO SCH (08:45)
[2016-09-19] MEDS: DOCUSATE SODIUM 100 MG CAP PO SCH ×2 (08:45→20:54)
[2016-09-19] MEDS: CREON-24 CAPSULE PO SCH ×3 (08:45→16:46)
[2016-09-19] MEDS: PANTOPRAZOLE 40MG TAB (PROTONIX) PO SCH (08:45)
[2016-09-19] MEDS: ASCORBIC ACID 500 MG TAB PO SCH ×2 (08:45→20:54)
[2016-09-19] MEDS: MIRALAX *UNIT DOSE* 17GM PACKET PO SCH (08:45)
[2016-09-19] MEDS: ENOXAPARIN 40 MG/0.4 ML SYRINGE (J1650) SC SCH (08:46)
[2016-09-19] MEDS: KALYDECO PO SCH ×2 (08:57→20:51)
[2016-09-19] MEDS: ADVAIR DISKUS 500/50 INH PWD INH SCH ×2 (09:58→20:55)
[2016-09-19] MEDS: TOBRAMYCIN INH SCH ×2 (09:59→20:55)
[2016-09-19] MEDS: DORNASE INHALATION SOLN 1 MG/ML 2.5 ML AMP INH SCH ×2 (13:00→20:54)
[2016-09-19] MEDS: D5W IV SCH (15:27)
[2016-09-19] MEDS: TOBRAMYCIN SULF IV SCH (15:27)
[2016-09-19 16:00] VITALS: BP 139/65
[2016-09-19 20:00] VITALS: BP 143/74
[2016-09-19] MEDS ORDERED: [UNRECOGNIZED DRUG - OTHER] NEB SCH (20:00)
[2016-09-19] MEDS: LEVEMIR (INSULIN DETEMIR) 1 UNITS/0.01ML SC SCH (20:53)
[2016-09-19] MEDS: LORATADINE 10 MG TAB PO SCH (21:22)
[2016-09-20] VITALS: BP 139/72
[2016-09-20] MEDS: IMIPENEM/CILASTATIN 1,000 MG in NS 250 ML IV SCH ×4 (01:40→20:53)
[2016-09-20] MEDS: SODIUM CHLORIDE 0.9% INJ 10 ML SYR IV SCH ×2 (06:03→17:22)
[2016-09-20 07:15] LABS: ANION GAP 9 MEQ/L (8-16); BLOOD UREA NITROGEN 11 MG/DL (7-18); CALCIUM LEVEL 8.8 MG/DL (8.5-10.1); CARBON DIOXIDE LEVEL 29 MEQ/L (21-32); CHLORIDE LEVEL 107 MEQ/L (98-107); CREATININE FOR GFR 0.56 MG/DL (0.55-1.02); GLOMERULAR FILTRATION RATE > 60.0 (>51); GLUCOSE, FASTING 114 MG/DL (70-105); POTASSIUM SERUM 4.4 MEQ/L (3.5-5.1); SODIUM LEVEL 145 MEQ/L (136-145)
[2016-09-20 08:00] VITALS: BP 132/63
[2016-09-20] MEDS: [UNRECOGNIZED DRUG - OTHER] NEB SCH ×3 (08:00→19:13)
[2016-09-20] MEDS: ADVAIR DISKUS 500/50 INH PWD INH SCH ×2 (08:09→19:15)
[2016-09-20] MEDS: LEVALBUTEROL 1.25 MG/0.5 ML CONCENTRATE NEB INH SCH ×3 (08:09→19:15)
[2016-09-20] MEDS: DORNASE INHALATION SOLN 1 MG/ML 2.5 ML AMP INH SCH ×2 (08:10→19:12)
[2016-09-20] MEDS: TOBRAMYCIN INH SCH ×2 (08:11→19:14)
[2016-09-20] MEDS: HumaLOG INSULIN (NovoLOG) PER UNIT SC SCH ×4 (08:20→20:54)
[2016-09-20] MEDS: MIRALAX *UNIT DOSE* 17GM PACKET PO SCH (08:21)
[2016-09-20] MEDS: MULTIVITAMINS/MINERALS THERAP 1 TAB PO SCH (08:21)
[2016-09-20] MEDS: PANTOPRAZOLE 40MG TAB (PROTONIX) PO SCH (08:21)
[2016-09-20] MEDS: DOCUSATE SODIUM 100 MG CAP PO SCH ×2 (08:21→20:53)
[2016-09-20] MEDS: ENOXAPARIN 40 MG/0.4 ML SYRINGE (J1650) SC SCH (08:21)
[2016-09-20] MEDS: CREON-24 CAPSULE PO SCH ×3 (08:21→18:01)
[2016-09-20] MEDS: ASCORBIC ACID 500 MG TAB PO SCH ×2 (08:22→20:53)
[2016-09-20] MEDS: KALYDECO PO SCH ×2 (08:23→20:53)
[2016-09-20 08:44] LABS: MEAN CORPUSCULAR HEMOGLOBIN 26.8 pg (27.0-33.0); MEAN CORPUSCULAR HGB CONC 32.8 g/dl (32.0-36.5); MEAN CORPUSCULAR VOLUME 81.6 fl (80.0-96.0); RED CELL DISTRIBUTION WIDTH 12.6 % (11.5-14.5); WHITE BLOOD COUNT 3.9 K/mm3 (4.0-10.0)
[2016-09-20] MEDS: SODIUM CHLORIDE 0.9% INJ 10 ML SYR IV PRN ×3 (09:38→22:23)
[2016-09-20 16:00] VITALS: BP 145/71
[2016-09-20] MEDS: D5W IV SCH (16:09)
[2016-09-20] MEDS: TOBRAMYCIN SULF IV SCH (16:09)
[2016-09-20 19:35] VITALS: BP 142/73
[2016-09-20] MEDS: LORATADINE 10 MG TAB PO SCH (20:53)
[2016-09-20] MEDS: LEVEMIR (INSULIN DETEMIR) 1 UNITS/0.01ML SC SCH (21:04)
[2016-09-21 00:03] VITALS: BP 130/62
[2016-09-21] MEDS: SODIUM CHLORIDE 0.9% INJ 10 ML SYR IV PRN ×3 (02:23→21:46)
[2016-09-21] MEDS: IMIPENEM/CILASTATIN 1,000 MG in NS 250 ML IV SCH ×4 (02:23→20:23)
[2016-09-21] MEDS: SODIUM CHLORIDE 0.9% INJ 10 ML SYR IV SCH ×2 (05:20→18:09)
[2016-09-21] MEDS: LEVALBUTEROL 1.25 MG/0.5 ML CONCENTRATE NEB INH SCH ×3 (07:51→20:06)
[2016-09-21] MEDS: DORNASE INHALATION SOLN 1 MG/ML 2.5 ML AMP INH SCH ×2 (07:51→20:07)
[2016-09-21] MEDS: [UNRECOGNIZED DRUG - OTHER] NEB SCH ×3 (07:52→20:06)
[2016-09-21] MEDS: TOBRAMYCIN INH SCH ×2 (07:52→20:06)
[2016-09-21] MEDS: ADVAIR DISKUS 500/50 INH PWD INH SCH ×2 (07:52→20:05)
[2016-09-21 08:00] VITALS: BP 131/73
[2016-09-21] MEDS: CREON-24 CAPSULE PO SCH ×3 (09:42→18:08)
[2016-09-21] MEDS: DOCUSATE SODIUM 100 MG CAP PO SCH ×2 (09:43→21:45)
[2016-09-21] MEDS: MULTIVITAMINS/MINERALS THERAP 1 TAB PO SCH (09:43)
[2016-09-21] MEDS: PANTOPRAZOLE 40MG TAB (PROTONIX) PO SCH (09:43)
[2016-09-21] MEDS: ASCORBIC ACID 500 MG TAB PO SCH ×2 (09:44→21:45)
[2016-09-21] MEDS: MIRALAX *UNIT DOSE* 17GM PACKET PO SCH (09:44)
[2016-09-21] MEDS: ENOXAPARIN 40 MG/0.4 ML SYRINGE (J1650) SC SCH (09:45)
[2016-09-21] MEDS: KALYDECO PO SCH ×2 (10:02→21:45)
[2016-09-21] MEDS: HumaLOG INSULIN (NovoLOG) PER UNIT SC SCH ×4 (10:03→21:46)
[2016-09-21 16:00] VITALS: BP 122/68
[2016-09-21] MEDS: TOBRAMYCIN SULF IV SCH (16:34)
[2016-09-21] MEDS: D5W IV SCH (16:34)
[2016-09-21 19:30] VITALS: BP 145/79
[2016-09-21] MEDS: LORATADINE 10 MG TAB PO SCH (21:45)
[2016-09-21] MEDS: LEVEMIR (INSULIN DETEMIR) 1 UNITS/0.01ML SC SCH (21:45)
[2016-09-22] MEDS: IMIPENEM/CILASTATIN 1,000 MG in NS 250 ML IV SCH ×4 (02:20→19:53)
[2016-09-22] MEDS: SODIUM CHLORIDE 0.9% INJ 10 ML SYR IV PRN ×2 (02:23→21:10)
[2016-09-22 04:15] VITALS: BP 110/53
[2016-09-22] MEDS: SODIUM CHLORIDE 0.9% INJ 10 ML SYR IV SCH ×2 (06:00→16:57)
[2016-09-22] MEDS: ADVAIR DISKUS 500/50 INH PWD INH SCH ×2 (07:57→21:13)
[2016-09-22] MEDS: LEVALBUTEROL 1.25 MG/0.5 ML CONCENTRATE NEB INH SCH ×3 (07:58→19:19)
[2016-09-22] MEDS: [UNRECOGNIZED DRUG - OTHER] NEB SCH ×3 (07:58→19:19)
[2016-09-22] MEDS: TOBRAMYCIN INH SCH ×2 (07:59→19:37)
[2016-09-22] MEDS: HumaLOG INSULIN (NovoLOG) PER UNIT SC SCH ×4 (08:35→20:57)
[2016-09-22 08:43] VITALS: BP 123/62
[2016-09-22] MEDS: CREON-24 CAPSULE PO SCH ×3 (09:07→18:32)
[2016-09-22] MEDS: PANTOPRAZOLE 40MG TAB (PROTONIX) PO SCH (09:08)
[2016-09-22] MEDS: MULTIVITAMINS/MINERALS THERAP 1 TAB PO SCH (09:08)
[2016-09-22] MEDS: KALYDECO PO SCH ×2 (09:08→21:11)
[2016-09-22] MEDS: VITAMIN D 50,000 UNITS CAPSULE (ERGOCALCIFEROL 1.25MG) PO SCH (09:08)
[2016-09-22] MEDS: MIRALAX *UNIT DOSE* 17GM PACKET PO SCH (09:08)
[2016-09-22] MEDS: DOCUSATE SODIUM 100 MG CAP PO SCH ×2 (09:08→21:10)
[2016-09-22] MEDS: ASCORBIC ACID 500 MG TAB PO SCH ×2 (09:09→21:11)
[2016-09-22] MEDS: DORNASE INHALATION SOLN 1 MG/ML 2.5 ML AMP INH SCH ×2 (10:09→19:36)
[2016-09-22] MEDS: TOBRAMYCIN SULF IV SCH (15:44)
[2016-09-22] MEDS: D5W IV SCH (15:44)
[2016-09-22 16:00] VITALS: BP 139/65
[2016-09-22 20:00] VITALS: BP 128/67
[2016-09-22] MEDS: LORATADINE 10 MG TAB PO SCH (21:10)
[2016-09-22] MEDS: LEVEMIR (INSULIN DETEMIR) 1 UNITS/0.01ML SC SCH (21:11)
[2016-09-23] MEDS: SODIUM CHLORIDE 0.9% INJ 10 ML SYR IV SCH ×3 (02:49→21:43)
[2016-09-23] MEDS: IMIPENEM/CILASTATIN 1,000 MG in NS 250 ML IV SCH ×4 (02:49→20:08)
[2016-09-23 04:00] VITALS: BP 127/69
[2016-09-23 08:00] VITALS: BP 155/77
[2016-09-23] MEDS: DORNASE INHALATION SOLN 1 MG/ML 2.5 ML AMP INH SCH ×2 (08:00→19:23)
[2016-09-23] MEDS: [UNRECOGNIZED DRUG - OTHER] NEB SCH ×3 (08:00→19:24)
[2016-09-23] MEDS: CREON-24 CAPSULE PO SCH ×3 (08:46→17:59)
[2016-09-23] MEDS: MIRALAX *UNIT DOSE* 17GM PACKET PO SCH (08:46)
[2016-09-23] MEDS: PANTOPRAZOLE 40MG TAB (PROTONIX) PO SCH (08:47)
[2016-09-23] MEDS: DOCUSATE SODIUM 100 MG CAP PO SCH ×2 (08:47→21:19)
[2016-09-23] MEDS: MULTIVITAMINS/MINERALS THERAP 1 TAB PO SCH (08:47)
[2016-09-23] MEDS: ASCORBIC ACID 500 MG TAB PO SCH ×2 (08:47→21:19)
[2016-09-23] MEDS: KALYDECO PO SCH ×2 (08:52→21:00)
[2016-09-23] MEDS: TOBRAMYCIN INH SCH ×2 (09:00→19:23)
[2016-09-23] MEDS: HumaLOG INSULIN (NovoLOG) PER UNIT SC SCH ×4 (09:25→21:20)
[2016-09-23] MEDS: LEVALBUTEROL 1.25 MG/0.5 ML CONCENTRATE NEB INH SCH ×3 (13:22→19:23)
[2016-09-23] MEDS: ADVAIR DISKUS 500/50 INH PWD INH SCH ×2 (13:23→19:23)
[2016-09-23] MEDS: D5W IV SCH (15:53)
[2016-09-23] MEDS: TOBRAMYCIN SULF IV SCH (15:53)
[2016-09-23 16:00] VITALS: BP 137/69
[2016-09-23 20:00] VITALS: BP 136/63
[2016-09-23] MEDS: LORATADINE 10 MG TAB PO SCH (21:19)
[2016-09-23] MEDS: LEVEMIR (INSULIN DETEMIR) 1 UNITS/0.01ML SC SCH (21:21)
[2016-09-24] MEDS: IMIPENEM/CILASTATIN 1,000 MG in NS 250 ML IV SCH ×4 (02:58→22:00)
[2016-09-24 04:00] VITALS: BP 128/61
[2016-09-24] MEDS: ACETAMINOPHEN TAB 650MG DOSE (2X325MG) PO PRN ×4 (04:03→22:01)
[2016-09-24] MEDS: SODIUM CHLORIDE 0.9% INJ 10 ML SYR IV PRN ×3 (04:03→22:05)
[2016-09-24 08:00] VITALS: BP 127/59
[2016-09-24] MEDS: [UNRECOGNIZED DRUG - OTHER] NEB SCH ×3 (09:00→19:56)
[2016-09-24] MEDS: LEVALBUTEROL 1.25 MG/0.5 ML CONCENTRATE NEB INH SCH ×3 (09:00→19:56)
[2016-09-24] MEDS: DORNASE INHALATION SOLN 1 MG/ML 2.5 ML AMP INH SCH ×2 (09:00→19:56)
[2016-09-24] MEDS: HumaLOG INSULIN (NovoLOG) PER UNIT SC SCH ×4 (09:01→21:00)
[2016-09-24] MEDS: DOCUSATE SODIUM 100 MG CAP PO SCH ×2 (09:02→22:01)
[2016-09-24] MEDS: ASCORBIC ACID 500 MG TAB PO SCH ×2 (09:02→22:02)
[2016-09-24] MEDS: VITAMIN D 50,000 UNITS CAPSULE (ERGOCALCIFEROL 1.25MG) PO SCH (09:02)
[2016-09-24] MEDS: MULTIVITAMINS/MINERALS THERAP 1 TAB PO SCH (09:02)
[2016-09-24] MEDS: CREON-24 CAPSULE PO SCH ×3 (09:02→20:00)
[2016-09-24] MEDS: PANTOPRAZOLE 40MG TAB (PROTONIX) PO SCH (09:02)
[2016-09-24] MEDS: MIRALAX *UNIT DOSE* 17GM PACKET PO SCH (09:03)
[2016-09-24] MEDS: ADVAIR DISKUS 500/50 INH PWD INH SCH ×2 (09:03→22:10)
[2016-09-24] MEDS: KALYDECO PO SCH ×2 (09:05→22:03)
[2016-09-24] MEDS: TOBRAMYCIN INH SCH ×2 (09:36→19:56)
[2016-09-24 11:57] LABS: MEAN CORPUSCULAR HEMOGLOBIN 26.2 pg (27.0-33.0); MEAN CORPUSCULAR HGB CONC 32.1 g/dl (32.0-36.5); MEAN CORPUSCULAR VOLUME 81.7 fl (80.0-96.0); WHITE BLOOD COUNT 4.4 K/mm3 (4.0-10.0)
[2016-09-24 12:15] LABS: ALBUMIN 3.2 GM/DL (3.2-5.2); ALBUMIN/GLOBULIN RATIO 0.97 (1.00-1.93); ALKALINE PHOSPHATASE 106 U/L (45-117); ALT/SGPT 62 U/L (12-78); ANION GAP 10 MEQ/L (8-16); AST/SGOT 46 U/L (15-37); BILIRUBIN,TOTAL 0.3 MG/DL (0.2-1.0); BLOOD UREA NITROGEN 10 MG/DL (7-18); CALCIUM LEVEL 8.6 MG/DL (8.5-10.1); CARBON DIOXIDE LEVEL 26 MEQ/L (21-32); CHLORIDE LEVEL 105 MEQ/L (98-107); GLOMERULAR FILTRATION RATE > 60.0 (>51); GLUCOSE, FASTING 115 MG/DL (70-105); POTASSIUM SERUM 4.5 MEQ/L (3.5-5.1); SODIUM LEVEL 141 MEQ/L (136-145); TOTAL PROTEIN 6.5 GM/DL (6.4-8.2)
[2016-09-24] MEDS: TOBRAMYCIN SULF IV SCH (15:26)
[2016-09-24] MEDS: D5W IV SCH (15:26)
[2016-09-24 16:00] VITALS: BP 131/65
[2016-09-24] MEDS: SODIUM CHLORIDE 0.9% INJ 10 ML SYR IV SCH (16:57)
[2016-09-24 20:00] VITALS: BP 140/65
[2016-09-24] MEDS: LORATADINE 10 MG TAB PO SCH (22:01)
[2016-09-24] MEDS: LEVEMIR (INSULIN DETEMIR) 1 UNITS/0.01ML SC SCH (22:19)
[2016-09-24] MEDS: ONDANSETRON 4MG/2ML VIAL (J2405) IV PRN (22:19)
[2016-09-24] MEDS: guaiFENesin/CODEINE SYRUP 5 ML UDC PO PRN (23:06)
[2016-09-25] MEDS: IMIPENEM/CILASTATIN 1,000 MG in NS 250 ML IV SCH ×4 (02:45→20:30)
[2016-09-25] MEDS: ACETAMINOPHEN TAB 650MG DOSE (2X325MG) PO PRN ×4 (02:47→22:03)
[2016-09-25 03:43] VITALS: BP 116/60
[2016-09-25] MEDS: SODIUM CHLORIDE 0.9% INJ 10 ML SYR IV PRN ×2 (04:32→21:59)
[2016-09-25] MEDS: SODIUM CHLORIDE 0.9% INJ 10 ML SYR IV SCH ×2 (06:00→18:00)
[2016-09-25 08:00] VITALS: BP 130/64
[2016-09-25] MEDS: LEVALBUTEROL 1.25 MG/0.5 ML CONCENTRATE NEB INH SCH ×3 (08:00→20:17)
[2016-09-25] MEDS: TOBRAMYCIN INH SCH ×2 (08:32→20:18)
[2016-09-25] MEDS: [UNRECOGNIZED DRUG - OTHER] NEB SCH ×3 (08:32→20:18)
[2016-09-25] MEDS: ADVAIR DISKUS 500/50 INH PWD INH SCH ×2 (08:32→20:17)
[2016-09-25] MEDS: DORNASE INHALATION SOLN 1 MG/ML 2.5 ML AMP INH SCH ×2 (08:32→20:17)
[2016-09-25] MEDS: HumaLOG INSULIN (NovoLOG) PER UNIT SC SCH ×4 (08:34→21:00)
[2016-09-25] MEDS: DOCUSATE SODIUM 100 MG CAP PO SCH ×2 (11:00→20:30)
[2016-09-25] MEDS: MIRALAX *UNIT DOSE* 17GM PACKET PO SCH (11:00)
[2016-09-25] MEDS: CREON-24 CAPSULE PO SCH ×3 (11:00→18:15)
[2016-09-25] MEDS: ASCORBIC ACID 500 MG TAB PO SCH ×2 (11:01→20:30)
[2016-09-25] MEDS: PANTOPRAZOLE 40MG TAB (PROTONIX) PO SCH (11:01)
[2016-09-25] MEDS: KALYDECO PO SCH ×2 (11:01→20:29)
[2016-09-25] MEDS: MULTIVITAMINS/MINERALS THERAP 1 TAB PO SCH (11:01)
[2016-09-25] MEDS: PHYTONADIONE 5 MG TAB PO SCH (11:09)
[2016-09-25 16:00] VITALS: BP 126/58
[2016-09-25] MEDS: D5W IV SCH (17:38)
[2016-09-25] MEDS: TOBRAMYCIN SULF IV SCH (17:38)
[2016-09-25 20:00] VITALS: BP 131/60
[2016-09-25] MEDS: LORATADINE 10 MG TAB PO SCH (20:30)
[2016-09-25] MEDS: LEVEMIR (INSULIN DETEMIR) 1 UNITS/0.01ML SC SCH (21:58)
[2016-09-25] MEDS: guaiFENesin/CODEINE SYRUP 5 ML UDC PO PRN (21:59)
[2016-09-26] MEDS: IMIPENEM/CILASTATIN 1,000 MG in NS 250 ML IV SCH ×2 (02:31→09:08)
[2016-09-26] MEDS: SODIUM CHLORIDE 0.9% INJ 10 ML SYR IV PRN ×2 (02:31→04:21)
[2016-09-26] MEDS: ACETAMINOPHEN TAB 650MG DOSE (2X325MG) PO PRN (02:42)
[2016-09-26 04:00] VITALS: BP 125/61
[2016-09-26] MEDS: HumaLOG INSULIN (NovoLOG) PER UNIT SC SCH (07:30)
[2016-09-26 08:00] VITALS: BP 134/63
[2016-09-26] MEDS: CREON-24 CAPSULE PO SCH (08:00)
[2016-09-26] MEDS: DORNASE INHALATION SOLN 1 MG/ML 2.5 ML AMP INH SCH (08:49)
[2016-09-26] MEDS: LEVALBUTEROL 1.25 MG/0.5 ML CONCENTRATE NEB INH SCH (08:49)
[2016-09-26] MEDS: ADVAIR DISKUS 500/50 INH PWD INH SCH (08:49)
[2016-09-26] MEDS: TOBRAMYCIN INH SCH (08:50)
[2016-09-26] MEDS: [UNRECOGNIZED DRUG - OTHER] NEB SCH (08:50)
[2016-09-26] MEDS: ONDANSETRON 4MG/2ML VIAL (J2405) IV PRN (09:08)
[2016-09-26] MEDS: MIRALAX *UNIT DOSE* 17GM PACKET PO SCH (09:17)
[2016-09-26] MEDS: MULTIVITAMINS/MINERALS THERAP 1 TAB PO SCH (09:17)
[2016-09-26] MEDS: PANTOPRAZOLE 40MG TAB (PROTONIX) PO SCH (09:17)
[2016-09-26] MEDS: VITAMIN D 50,000 UNITS CAPSULE (ERGOCALCIFEROL 1.25MG) PO SCH (09:17)
[2016-09-26] MEDS: ASCORBIC ACID 500 MG TAB PO SCH (09:17)
[2016-09-26] MEDS: DOCUSATE SODIUM 100 MG CAP PO SCH (09:17)
[2016-09-26] MEDS: KALYDECO PO SCH (09:24)
--- NOTE | 2016-09-27 17:32 | DSES ---
DATE OF ADMISSION: 09/12/2016 DATE OF DISCHARGE: 09/26/2016 DISCHARGE DIAGNOSES: 1. Cystic fibrosis exacerbation. 2. Chronic constipation. 3. Pseudomonas aeruginosa pneumonia. 4. Staphylococcus aureus methicillin-sensitive pneumonia. HISTORY: The patient is a 51-year-old woman with cystic fibrosis, who had been feeling ill for two weeks with increasing shortness of breath and cough. She developed chills. Sputum cultures were found abnormal and she was referred for admission. Physical exam on admission revealed a temperature 97, pulse rate 104, respirations 24, blood pressure 164/78. Pertinent positive physical findings included diminished breath sounds, scattered expiratory wheezes, clubbing of the nails. DIAGNOSTIC STUDIES: The patient's chest x-ray on admission showed chronic interstitial coarsening with effacement of the left costophrenic angle. White cell count on admission was 10. Differential white cell count 80% neutrophils. Hemoglobin was 12.8, hematocrit 38.7, platelet count 259,000. Multiple repeat CBCs were performed. On 09/24/2016, the white count was 4.4, hemoglobin 11.4, hematocrit 35.5, platelet count 272,000. Electrolytes on admission: Sodium 142, potassium 3.7, chloride 103, CO2 27, BUN 12, creatinine 0.78, glucose 178. On 09/24/2016, sodium is 141, potassium 4.5, chloride 105, CO2 26, BUN 10, creatinine 0.6, glucose 115. AST was 46, ALT 62, albumin 3.2. Coagulation studies on admission were normal. HOSPITAL COURSE: The patient was admitted, begun on intravenous (IV) tobramycin and imipenem, given aggressive nebulized therapy and continued on her home regime. Her hospital course was one of slow steady improvement. She did develop some upper respiratory tract infectious symptoms which were felt to be viral. A flu culture was performed and found negative. Initial sputum cultures grew Staphylococcus aureus, oxacillin sensitive and Pseudomonas, sensitive to quinolones, imipenem, and aminoglycosides. As noted, she improved steadily, was able to be up and ambulatory, returned to her usual baseline of health and was discharged on 09/26/2016. Her medications at the time of discharge were to be the same as prior to admission including: - vitamin K 5 mg daily - Xopenex nebulized therapy every two hours as needed for dyspnea - vitamin D 50,000 units Thursday, Thursday, Thursday - Robitussin AC 10 mg at bedtime as needed for cough - multivitamins one daily - Protonix 40 mg a day - MiraLax one packet daily - Creon 24 pancreatic enzymes Thursday and Thursday - insulin per scale - vitamin C 500 mg twice a day - Advair 500/50 one puff twice a day - Claritin 10 mg daily - Colace 100 mg twice a day - Pulmozyme 2.5 mg twice a day - Xopenex 1.25 mg three times a day - Tylenol as needed for fever Arrangements were made for her to followup in the office with Dr. Igor izquierdo. CONDITION ON DISCHARGE: Her condition at discharge was improved. INDICATIONS DISCHARGE SUMMARY [facility] [id number] DATA CC. HISTORY OF PRESENT ILLNESS Day.
== END 2016-09-26 13:05 | disposition home or self-care (01) | DRG 177 ==
LOC: M ED 13:09 → M ED INP 15:46 → M PED 18:00
PROVIDERS: ADMIT Internal Medicine Pulmonary Disease; ATTEND Internal Medicine Pulmonary Disease
PROC: 05H933Z Insertion of Infusion Device into Right Brachial Vein, Percutaneous Approach (ICD-10-PCS; principal; 2016-09-12)
DX: E84.0 Cystic fibrosis with pulmonary manifestations (principal); J15.1 Pneumonia due to Pseudomonas; J15.211 Pneumonia due to Methicillin susceptible Staphylococcus aureus; E84.19 Cystic fibrosis with other intestinal manifestations; E55.9 Vitamin D deficiency, unspecified; J02.8 Acute pharyngitis due to other specified organisms; E13.69 Other specified diabetes mellitus with other specified complication; K59.00 Constipation, unspecified; K86.89 Other specified diseases of pancreas; Z79.4 Long term (current) use of insulin; Z79.899 Other long term (current) drug therapy

== ENCOUNTER → 2016-10-21 | Outpatient (REF) | payer MEDICARE ==
[~2016-10-21] MED LIST changes: +AMIT24CA5 PO; +AQUACAP PO; +CALTTAB11 PO; +CLAR1TAB2 PO; +COLA100C PO; +CREO24CA PO; +DRIS50002 PO; +KALY150T PO; +LEVA12INH INH; +MIRA3350 PO; +PHYT5TA PO; +VITA100T56 PO; +[UNRECOGNIZED DRUG - CODE] INH
== END ==
LOC: M LAB REF 12:53
PROVIDERS: ATTEND Internal Medicine Pulmonary Disease
DX: R10.9 Unspecified abdominal pain (principal); E84.0 Cystic fibrosis with pulmonary manifestations

== ENCOUNTER → 2017-03-11 | Outpatient (REF) | payer MEDICARE ==
[~2017-03-11] MED LIST changes: -AMIT24CA5 PO; +AMIT24CA7 PO; -COLA100C PO; +COLA100C5 PO; +DEXI60CA2 PO
== END ==
LOC: M LAB REF 17:21
PROVIDERS: ATTEND Internal Medicine Pulmonary Disease
DX: R05 Cough (principal); E84.0 Cystic fibrosis with pulmonary manifestations

== ENCOUNTER → 2017-03-23 | Outpatient (CLI) | payer MEDICARE ==
--- NOTE | 2017-03-30 08:27 | REP ---
Clinical: Trauma. Technique: Frontal view of the chest with multiple views of the right hemithorax. Findings: Frontal view of the chest demonstrates diffuse chronic interstitial changes. Superimposed acute right mid lung process cannot be excluded. Small nodular densities along the periphery of the right upper lung zone may reflect calcifications versus soft tissue nodules. Multiple views of the right hemithorax demonstrates no obvious acute rib fracture or pathology. Impression: 1. No acute rib fracture identified. 2. Lung currie demonstrate chronic interstitial changes with subtle superimposed right mid lung opacity and possible small nodular densities. Chest CT for further investigation may be warranted. Signed by Parag Simeon MD 03/23/2017 10:28 P
== END ==
LOC: M RAD 20:01
PROVIDERS: ATTEND Physician Assistant Medical
DX: J98.4 Other disorders of lung (principal)

== ENCOUNTER → 2017-04-07 | Outpatient (CLI) | payer MEDICARE ==
--- NOTE | 2017-04-07 14:32 | REP ---
PA and lateral chest: Comparison is 09/12/2016. According to the film file the patient has additional clinical history of cystic fibrosis. There is chronic diffuse interstitial coarsening, unchanged, compatible with fibrosis. There is chronic effacement of the left costophrenic angle, unchanged, likely from pleural adhesion. There are no acute focal infiltrates. There are no pleural effusions. Cardiac size is normal. The oliver, mediastinum, and bony thorax are unremarkable. Impression: There are no new or acute cardiopulmonary findings. There is chronic interstitial coarsening and chronic effacement of the left costophrenic angle. Signed by Eric Stone MD 04/07/2017 02:24 P
== END ==
LOC: M RAD 14:08
PROVIDERS: ATTEND Internal Medicine Pulmonary Disease
DX: R05 Cough (principal); J98.4 Other disorders of lung

== ENCOUNTER → 2017-04-09 | Outpatient (REF) | payer MEDICARE | LOC: M LAB REF 13:05 | PROVIDERS: ATTEND Internal Medicine Pulmonary Disease | DX: R05 Cough (principal); E84.0 Cystic fibrosis with pulmonary manifestations ==

== ENCOUNTER → 2017-06-10 | Outpatient (REF) | payer MEDICARE | LOC: M LAB REF 13:05 | PROVIDERS: ATTEND Internal Medicine Pulmonary Disease | DX: R05 Cough (principal); E84.0 Cystic fibrosis with pulmonary manifestations ==

== ENCOUNTER → 2017-06-30 | Outpatient (REF) | payer MEDICARE | LOC: M LAB REF 13:12 | PROVIDERS: ATTEND Internal Medicine Pulmonary Disease | DX: E84.19 Cystic fibrosis with other intestinal manifestations (principal); R05 Cough ==

== ENCOUNTER → 2017-07-28 | Outpatient (CLI) | payer MEDICARE | LOC: M WUC 12:37 | PROVIDERS: ATTEND Internal Medicine Pulmonary Disease | DX: R05 Cough (principal) ==

== ENCOUNTER 2017-08-18 12:26 | Inpatient (IN) | payer MEDICARE ==
[~2017-08-18] VITALS: Ht 162.6 cm; Wt 80.2 kg
[~2017-08-18 12:26] MED LIST changes: -ALBU1.25 INH; -ARNU1INH3 INH; -LINZ290C PO; -MIRA33504 PO; -NEXI20CA PO; -PROAAER10 INH; -SODI7NEB3 INH; -TYLE500T78 PO; -VITA1CAP40 PO; -VITMTA PO
[2017-08-18] MEDS ORDERED: VITAMIN D 1,000 INTERNATIONAL UNITS TABLET PO SCH (12:45)
[2017-08-18] MEDS ORDERED: ALBUTEROL 90 MCG/ACT 8GM HFA INHALER INH PRN (13:15)
[2017-08-18] MEDS ORDERED: DEXTROSE 50% 50 ML SYRINGE IV PRN (13:15)
[2017-08-18] MEDS ORDERED: GLUCOSE 4 GM CHEW TABLET PO PRN (13:15)
[2017-08-18] MEDS ORDERED: GLUCAGON FOR INJ 1 MG VIAL (J1610) SC PRN (13:15)
--- NOTE | 2017-08-18 17:21 | HPE ---
DATE OF ADMISSION: 08/18/2017 HISTORY OF PRESENT ILLNESS: Jovanna is a 52-year-old white female with cystic fibrosis who has had an increased cough for several months. She was felt to have a cystic fibrosis exacerbation. Attempts were made to treat her as an outpatient by both myself and Dr. Calderon ([facility]) have been unsuccessful. Her sputum has grown moderate Staphylococcus aureus and a few Pseudomonas. She had been started on doxycycline and that was changed to ciprofloxacin and minocycline when she was seen in [place] in June. She also was given a two-week prednisone burst. Kylah has a past history of ABPA and she thought perhaps that had recurred, but an IgE, after she was off prednisone, did not support that diagnoses. Kylah has continued to cough. She has difficulty expectorating and typically swallows her sputum. Typically, she can taste when pseudomonas is a predominant organism and that has not been the case. Because of her coughing, she has right-sided chest pain. She also notes some soreness along the left back. She has not had persistent fevers or chills. She has had difficulty sleeping because of the cough and is propped up on numerous pillows. She does not sense gastroesophageal reflux disease (GERD), but has been told that she likely has it. She has had postnasal drip, but does not feel that it is as bad as it typically is. She notes that increased shortness of breath tends to fluctuate around the weather. Kylah has received her flu vaccination this fall. Part of Kylha's difficulties are that she ran out of florian money in March and has not had Kalydeco since that time, which had been very beneficial. She has also not had DANYELL pods. She has had Pulmozyme sporadically , but does have it at the present time and has it for a few more weeks. She has been buying Hyper-David out of her own pocket and using that regularly. Kylah initially did not want to come into the hospital, but did admit that she knows that she has an exacerbation and that the only way she is going to feel better is if she receives intravenous antibiotics. After thinking it over more, she decided that she wanted to come in today and try to complete treatment prior to the [place] holidays. PAST MEDICAL HISTORY: 1. Cystic fibrosis with respiratory and pancreatic insufficiency. a. Delta 508/G551D. 2. History of ABPA. 3. Vitamin D deficiency. 4. Diabetes mellitus, cystic fibrosis related, insulin requiring. 5. Significant bowel difficulties with constipation, felt secondary to cystic fibrosis, followed by Dr. Lawton. 6. Osteopenia, followed by Dr. Nassar. ALLERGIES: SULFA, AZTREONAM, TOM, MORPHINE, ZITHROMAX. MEDICATIONS: On admission: - Breo (just added today to her previous inhaled corticosteroid) 200/25 one puff daily - Caltrate 600 plus D two by mouth daily - Claritin 10 mg by mouth daily - Creon 24,000 four by mouth with meals and two by mouth with snacks - Hyper-David 7% one nebulization twice a day - iron 325 mg one by mouth daily - Lantus 16 units at night - Linzess 290 mcg one capsule by mouth daily on an empty stomach for constipation - magnesium citrate 100 mg by mouth twice a day - MiraLAX 17 grams by mouth twice a day - multivitamin one by mouth twice a day - NovoLog sliding scale insulin - ProAir MDI two puffs every 4 hours as needed - Protonix 40 mg by mouth daily - Pulmozyme one nebulization twice a day - Senna laxative 8.6 mg by mouth twice a day - vitamin C 500 mg by mouth twice a day - vitamin D 50,000 units every Thursday, Thursday and Thursday - vitamin K 5 mg by mouth every week - Xopenex nebulization every 4 hours as needed SOCIAL HISTORY: She is involved in the care of several children. She has a biologic son and several adopted children. She recently worked in house cleaning. FAMILY HISTORY: Noncontributory to this admission. REVIEW OF SYSTEMS: As per history of present illness, remainder of review of systems are negative. Kylah is only eating one meal per day. PHYSICAL EXAMINATION: Kylah is sitting on the examination tablet in no acute distress. She has a frequent harsh cough and cannot lie flat without coughing and appearing very short of breath. VITAL SIGNS: Blood pressure 142/76, pulse 95, respiratory rate 20s, SpO2 95% on room air, weight 176 pounds and 6 ounces. HEENT: Anicteric. Nares are patent bilaterally. Oropharynx is clear with no lesions. There is no evidence of drainage in the posterior oropharynx. Discolored teeth. Mallampati 3. Fair dentition,. Gums are free of disease. NECK: Supple. Without jugular venous distention (JVD), thyromegaly or mass. Trachea is midline. LYMPHATICS: Without cervical, supraclavicular lymphadenopathy. CHEST: Normal size and shape. LUNGS: Symmetric excursion. Fair air entry. Scattered inspiratory crackles. Scattered rhonchi. No significant wheezing. No significant change in the examination on forced maneuver. Prolonged expiratory phase with accentuation on forced maneuver. No accessory muscle usage or retractions. Normal percussion and normal palpation. CARDIOVASCULAR: Regular rate and rhythm. Normal S1, S2. No murmur, rub or gallop appreciated. Nondisplaced PMI. ABDOMEN: Normoactive bowel sounds. Soft. Mild distention (her baseline), mild generalized tenderness. No rebound or guarding. No hepatosplenomegaly, masses appreciated. EXTREMITIES: 3+ clubbing. No cyanosis or edema. Palpable pedal pulses bilaterally. MUSCULOSKELETAL: She ambulates with a normal gait and exhibits normal muscle strength and tone. SKIN: No obvious rashes on extremities or face. NEUROLOGIC: Alert, awake, and oriented times three. Spirometry showed severe airflow obstruction with a decreased FVC with an FEV1 of 1.19 liters (44%) and an FVC of 1.93 liters (55%). FEV1/FVC ratio is reduced at 62%. Normal inspiratory flow volume loop. Compared to spirometry from 06/30/2017, her FEV1 has decreased 16% (220 mL). ASSESSMENT: 1. Cystic fibrosis exacerbation. 2. Cystic fibrosis at baseline with respiratory and pancreatic insufficiency. 3. Diabetes mellitus, CF related. 4. Chronic constipation. Followed by Dr. Lawton and felt in part secondary to cystic fibrosis. 5. Vitamin D deficiency. RECOMMENDATIONS: 1. We will place Kylah on IV antibiotics. Based on previous sputum cultures and sensitivities, I recommend tobramycin 700 mg IV daily and Primaxin 1 gram IV every 6 hours. 2. Anticipate that she will require at least 2 weeks on IV antibiotics. 3. Peripherally inserted central catheter (PICC) line placement. 4. A sputum for gram stain and culture was sent in clinic today so antibiotics may be modified if that grows different organisms. 5. We will continue with her routine cystic fibrosis medications. 6. Kylah is supposed to be working with the [place] coordinator from their cystic fibrosis clinic to try to obtain both DANYELL pods and Kalydeco. Kylah needs to be encouraged to contact that individual, even if she cannot obtain them in August, we want to make certain that when Kylah has a plan for next year so that she does not again run out of these medications during the year of 2018. 7. Kylah had spirometry done in the clinic. She should have one done just prior to discharge. ALEIDAD
[2017-08-18] MEDS: HumaLOG INSULIN (NovoLOG) PER UNIT SC SCH ×2 (17:30→22:00)
[2017-08-18 20:45] VITALS: BP 138/65
[2017-08-18] MEDS ORDERED: MAGNESIUM CITRATE 300 ML BTL PO SCH (21:00)
[2017-08-18] MEDS: LEVEMIR (INSULIN DETEMIR) 1 UNITS/0.01ML SC SCH (21:00)
[2017-08-18 22:33] LABS: BASO # 0.1 10^3/uL (0.0-0.2); BASO % 0.4 % (0.0-1.0); EOS # 0.1 10^3/uL (0.0-0.50); EOS % 0.4 % (0.0-3.0); IMMATURE GRANULOCYTE % 0.3 % (0-0); MEAN CORPUSCULAR HEMOGLOBIN 25.5 pg (27.0-33.0); MEAN CORPUSCULAR HGB CONC 31.2 g/dl (32.0-36.5); MEAN CORPUSCULAR VOLUME 81.6 fl (80.0-96.0); MONO # 0.7 10^3/uL (0.0-0.8); MONO % 5.4 % (0.0-5.0); NEUTROPHILS # 9.6 10^3/uL (1.8-7.7); NEUTROPHILS % 77.5 % (36.0-66.0); PLATELET COUNT, AUTOMATED 357 10^3/uL (150-450); RED CELL DISTRIBUTION WIDTH 13.9 % (11.5-14.5); WHITE BLOOD COUNT 12.4 10^3/uL (4.0-10.0)
[2017-08-18 22:36] LABS: INR 1.14
[2017-08-18 22:40] LABS: ALBUMIN 3.5 GM/DL (3.2-5.2); ALBUMIN/GLOBULIN RATIO 0.95 (1.00-1.93); ALKALINE PHOSPHATASE 96 U/L (45-117); ALT/SGPT 26 U/L (12-78); ANION GAP 9 MEQ/L (8-16); AST/SGOT 10 U/L (7-37); BILIRUBIN,TOTAL 0.4 MG/DL (0.2-1.0); BLOOD UREA NITROGEN 14 MG/DL (7-18); CALCIUM LEVEL 8.2 MG/DL (8.5-10.1); CARBON DIOXIDE LEVEL 27 MEQ/L (21-32); CHLORIDE LEVEL 104 MEQ/L (98-107); CREATININE FOR GFR 0.78 MG/DL (0.55-1.02); GLOMERULAR FILTRATION RATE > 60.0 (>51); GLUCOSE, FASTING 112 MG/DL (70-105); POTASSIUM SERUM 4.2 MEQ/L (3.5-5.1); SODIUM LEVEL 140 MEQ/L (136-145); TOTAL PROTEIN 7.2 GM/DL (6.4-8.2)
[2017-08-18] MEDS: HEPARIN SOD (PORCINE) 5000 UNITS/ML VIAL SC SCH (22:50)
[2017-08-18] MEDS: ACETAMINOPHEN TAB 650MG DOSE (2X325MG) PO PRN (22:50)
[2017-08-18] MEDS ORDERED: INSULANT SC (22:57)
[2017-08-18] MEDS ORDERED: INSUH10VL SC (22:57)
[2017-08-18] MEDS ORDERED: LINZ290C PO (22:57)
[2017-08-18] MEDS ORDERED: CALTTAB11 PO (22:57)
[2017-08-18] MEDS ORDERED: PROAAER10 INH (22:57)
[2017-08-18] MEDS ORDERED: ARNU1INH3 INH (22:57)
[2017-08-18] MEDS ORDERED: CREO24CA PO ×2 (22:57)
[2017-08-18] MEDS ORDERED: SODI7NEB3 INH (22:57)
[2017-08-18] MEDS ORDERED: PULM1SOL INH (22:57)
[2017-08-18] MEDS ORDERED: ALBU1.25 INH (22:57)
[2017-08-18] MEDS ORDERED: VITMTA PO (22:57)
[2017-08-18] MEDS ORDERED: MIRA33504 PO (22:58)
[2017-08-18] MEDS ORDERED: CLAR1TAB2 PO (22:58)
[2017-08-18] MEDS ORDERED: COLA100C5 PO (22:58)
[2017-08-18] MEDS ORDERED: VITA1CAP40 PO (22:58)
[2017-08-18] MEDS ORDERED: NEXI20CA PO (22:58)
[2017-08-18] MEDS ORDERED: LEVA12INH INH (22:58)
[2017-08-18] MEDS ORDERED: PHYT5TA PO (22:58)
[2017-08-18] MEDS ORDERED: TYLE500T78 PO (22:58)
[2017-08-18] MEDS: ADVAIR HFA 230/21MCG INHALER INH SCH (23:56)
[2017-08-19] VITALS: BP 121/60
[2017-08-19] MEDS: ALBUTEROL SULFATE 2.5 MG/0.5 ML INH NEB SOLN NEB PRN ×4 (00:09→17:08)
[2017-08-19] MEDS: DORNASE INHALATION SOLN 1 MG/ML 2.5 ML AMP INH SCH ×3 (00:09→19:31)
[2017-08-19] MEDS: ASCORBIC ACID 500 MG TAB PO SCH ×3 (00:30→21:33)
[2017-08-19] MEDS: SENNA 8.6 MG TAB (SENOKOT) PO SCH ×3 (00:30→21:33)
[2017-08-19] MEDS: MULTIVITAMINS/MINERALS THERAP 1 TAB PO SCH ×3 (00:30→21:33)
[2017-08-19] MEDS: IMIPENEM/CILASTATIN 1,000 MG in NS 250 ML IV SCH ×4 (00:31→18:31)
[2017-08-19] MEDS: ONDANSETRON 4 MG TAB (S0181) PO PRN ×4 (00:33→21:33)
[2017-08-19] MEDS: TOBRAMYCIN SULF IV SCH (02:04)
[2017-08-19] MEDS: NS IV SCH (02:04)
[2017-08-19] MEDS: HEPARIN SOD (PORCINE) 5000 UNITS/ML VIAL SC SCH ×3 (06:46→21:32)
[2017-08-19] MEDS: HumaLOG INSULIN (NovoLOG) PER UNIT SC SCH ×4 (07:30→21:00)
[2017-08-19 08:00] VITALS: BP 115/56
[2017-08-19] MEDS: CREON-24 CAPSULE PO SCH ×3 (08:00→18:00)
--- NOTE | 2017-08-19 08:24 | CCN ---
DATE OF SERVICE: 08/19/2017 Ms. Ocampo is seen today. She was admitted last night with cystic fibrosis exacerbation. The patient states that she feels about the same as she did last night. She is scheduled to go down for a peripherally inserted central catheter (PICC) line insertion today. She notes some nausea upon waking and actually had some vomiting of mucus. She is getting Zofran and is due for another dose. The patient continues to have some constipation. She is on MiraLAX, but is only getting it once a day where as at home she gets it twice a day and would like the MiraLax increased to her home dosing of twice a day. She refused mag citrate. She notes continued coughing and baseline shortness of breath. She denies fevers or chills. Denies chest pain. Notes some abdominal cramping, but states that is at baseline. She denies any other new issues. VITALS: Temperature 99.2, pulse 88, respiratory rate 20, blood pressure 121/60, pulse oximetry 90% on room air. GENERAL: The patient is alert and oriented times three. She appears uncomfortable and has been vomiting and coughing. HEENT: Head is normocephalic, atraumatic. Trachea is midline. Moist mucous membranes. NECK: Supple with no jugular venous distention (JVD). CHEST: Diminished breath sounds with scattered wheezing. Some prolonged expiratory phase noted. No accessory muscle use. HEART: Regular rate and rhythm. No murmurs appreciated. ABDOMEN: Positive bowel sounds, soft. No significant tenderness to palpation. Some mild distention. No rebound or guarding. EXTREMITIES: No edema. LABORATORIES: From 08/18/2017 at 2205, WBC 12.4, hemoglobin 12.7, hematocrit 40.7, and platelets 357. Sodium 140, potassium 4.2, chloride 104, carbon dioxide 27, BUN 14, creatinine 0.78, glucose 112, calcium 8.2, total bili 0.4, AST 10, ALT 26, alk phos 96, total protein 7.2, albumin 3.5, PT 14.8, INR 1.14, PTT is 30.2. ASSESSMENT/PLAN: 1. Cystic fibrosis with respiratory and pancreatic insufficiency and with cystic fibrosis exacerbation. The patient is on IV tobramycin and IV Primaxin. A sputum culture was obtained in the office yesterday and is currently pending. The patient will be going down for PICC line insertion later on today. She is on her routine cystic fibrosis medications including Pulmozyme. She was placed on Advair. She does follow in [place] at the [facility] and has been working with them to obtain DANYELL pods and Kalydeco and should continue to work with them. 2. Constipation. The patient refuses mag citrate and would like to resume her MiraLax twice a day as she is currently on it once a day. 3. Diabetes mellitus. The patient is on sliding-scale insulin and Levemir. MTDD
[2017-08-19 08:40] LABS: BASO % 0.3 % (0.0-1.0); EOS # 0.1 10^3/uL (0.0-0.50); IMMATURE GRANULOCYTE % 0.3 % (0-0); LYMPH # 0.7 10^3/uL (1.5-4.5); LYMPH % 7.4 % (24.0-44.0); MEAN CORPUSCULAR HEMOGLOBIN 25.6 pg (27.0-33.0); MEAN CORPUSCULAR VOLUME 82.4 fl (80.0-96.0); MONO # 0.3 10^3/uL (0.0-0.8); MONO % 3.7 % (0.0-5.0); NEUTROPHILS # 7.9 10^3/uL (1.8-7.7); NEUTROPHILS % 87.3 % (36.0-66.0); PLATELET COUNT, AUTOMATED 287 10^3/uL (150-450)
[2017-08-19] MEDS: ACETAMINOPHEN TAB 650MG DOSE (2X325MG) PO PRN ×3 (08:42→18:41)
[2017-08-19] MEDS ORDERED: DILUENT IV SCH (09:00)
[2017-08-19] MEDS ORDERED: MIRALAX *UNIT DOSE* 17GM PACKET PO SCH (09:00)
[2017-08-19] MEDS ORDERED: TOBRAMYCIN SULF IV SCH (09:00)
[2017-08-19] MEDS: ADVAIR HFA 230/21MCG INHALER INH SCH ×2 (09:05→22:29)
[2017-08-19 09:06] LABS: ALBUMIN 2.9 GM/DL (3.2-5.2); ALBUMIN/GLOBULIN RATIO 0.94 (1.00-1.93); ALKALINE PHOSPHATASE 87 U/L (45-117); ALT/SGPT 21 U/L (12-78); ANION GAP 9 MEQ/L (8-16); AST/SGOT 12 U/L (7-37); BILIRUBIN,TOTAL 0.6 MG/DL (0.2-1.0); BLOOD UREA NITROGEN 13 MG/DL (7-18); CALCIUM LEVEL 7.5 MG/DL (8.5-10.1); CARBON DIOXIDE LEVEL 25 MEQ/L (21-32); CHLORIDE LEVEL 105 MEQ/L (98-107); CREATININE FOR GFR 0.69 MG/DL (0.55-1.02); GLOMERULAR FILTRATION RATE > 60.0 (>51); GLUCOSE, FASTING 163 MG/DL (70-105); POTASSIUM SERUM 3.9 MEQ/L (3.5-5.1); SODIUM LEVEL 139 MEQ/L (136-145)
[2017-08-19] MEDS: HYPERSAL INH SCH ×2 (09:09→19:32)
[2017-08-19] MEDS: LORATADINE 10 MG TAB PO SCH (09:51)
[2017-08-19] MEDS: CALCIUM/VITAMIN D 500 MG TAB PO SCH (09:51)
[2017-08-19] MEDS: MIRALAX *UNIT DOSE* 17GM PACKET PO SCH ×2 (09:52→21:33)
[2017-08-19] MEDS: VITAMIN D 50,000 UNITS CAPSULE (ERGOCALCIFEROL 1.25MG) PO SCH (09:52)
[2017-08-19] MEDS: FERROUS GLUCONATE 324 MG TAB PO SCH (09:52)
[2017-08-19] MEDS: PANTOPRAZOLE 40MG TAB (PROTONIX) PO SCH (09:59)
[2017-08-19] MEDS ORDERED: ISOVUE-300 61% 50ML VIAL (Q9967) As Ordered ONE (12:11)
[2017-08-19] MEDS: CREON-24 CAPSULE PO PRN (14:16)
[2017-08-19 16:00] VITALS: BP 115/52
[2017-08-19] MEDS ORDERED: IBUPROFEN 600 MG TAB PO ONE (16:45)
--- NOTE | 2017-08-19 19:36 | REP ---
Procedure: PICC line insertion with Site-Ritsharlene The procedure was performed under the direct supervision of Dr. Mackey. The risks and benefits of the procedure were explained to the patient and informed consent was obtained. The right basilic vein was localized using ultrasound guidance. The skin was prepped and draped in a sterile fashion. 2% lidocaine was used as a local anesthetic. Using ultrasound guidance the basilic vein was cannulated and a 0.018 guidewire was inserted and advanced to the SVC using fluoroscopic guidance. The needle was removed and a 5.5 Mongolian dilator and peel-away sheath was inserted over the guide wire. A 5.5 Mongolian dual lumen catheter was cut to length of 42 cm. The dilator was removed and the catheter was inserted over the guide wire, however the catheter only be advanced to the axillary region. A venogram was performed using 7 ml of Isovue 300. Images demonstrate tortuosity of the veins. Multiple attempts were tried however the catheter could not be advanced beyond this point. The right brachial vein was then localized using ultrasound guidance. The brachial vein was cannulated and the 5.5 Mongolian dilator and peel-away sheath was inserted over the guide wire. The catheter was reinserted however it still could not be advanced beyond the level of the axillary region. The guide wire and catheter that would then removed. The left basilic vein was localized using ultrasound guidance. The skin was prepped and draped in a sterile fashion. 2% lidocaine was used as a local anesthetic. Using ultrasound guidance the basilic vein was cannulated and a zero enter right guidewire was inserted and advanced to the SVC. The needle was removed and a 5.5 Mongolian dilator and peel-away sheath was inserted over the guide wire. The 5.5 Mongolian dual lumen catheter was cut to length of 43 cm. The dilator was removed and the catheter was inserted however it could not be advanced much beyond the end of the sheath. This may be due to spasm. Multiple attempts were tried however the catheter could not be advanced. The catheter and guidewire were then removed. Impression: Unsuccessful placement of PICC line after multiple attempts in both arms. The the patient tolerated the procedure well and there were no immediate complications. 5.8 minutes of fluoro time was utilized for this procedure. Reviewed by ADRIEN Haque 08/19/2017 04:03 PSigned by Pastor Mackey MD 08/19/2017 07:27 P
[2017-08-19 20:00] VITALS: BP 96/54
[2017-08-19] MEDS: LEVEMIR (INSULIN DETEMIR) 1 UNITS/0.01ML SC SCH (21:32)
[2017-08-20] VITALS: BP 108/52
[2017-08-20] MEDS: IMIPENEM/CILASTATIN 1,000 MG in NS 250 ML IV SCH ×5 (00:14→20:00)
[2017-08-20] MEDS: ALBUTEROL SULFATE 2.5 MG/0.5 ML INH NEB SOLN NEB PRN ×2 (01:02→07:44)
[2017-08-20] MEDS: TOBRAMYCIN SULF IV SCH (03:55)
[2017-08-20] MEDS: NS IV SCH (03:55)
[2017-08-20] MEDS: HEPARIN SOD (PORCINE) 5000 UNITS/ML VIAL SC SCH ×3 (05:41→21:32)
[2017-08-20] MEDS: HumaLOG INSULIN (NovoLOG) PER UNIT SC SCH ×4 (07:30→21:31)
[2017-08-20] MEDS: HYPERSAL INH SCH ×2 (07:43→19:48)
[2017-08-20] MEDS: DORNASE INHALATION SOLN 1 MG/ML 2.5 ML AMP INH SCH ×2 (07:43→19:47)
[2017-08-20 07:59] LABS: BASO % 0.4 % (0.0-1.0); EOS # 0.1 10^3/uL (0.0-0.50); EOS % 1.4 % (0.0-3.0); IMMATURE GRANULOCYTE % 0.2 % (0-0); LYMPH # 0.3 10^3/uL (1.5-4.5); LYMPH % 5.6 % (24.0-44.0); MEAN CORPUSCULAR HEMOGLOBIN 25.9 pg (27.0-33.0); MEAN CORPUSCULAR HGB CONC 31.6 g/dl (32.0-36.5); MEAN CORPUSCULAR VOLUME 81.8 fl (80.0-96.0); MONO # 0.4 10^3/uL (0.0-0.8); MONO % 6.5 % (0.0-5.0); NEUTROPHILS # 4.8 10^3/uL (1.8-7.7); NEUTROPHILS % 85.9 % (36.0-66.0); PLATELET COUNT, AUTOMATED 219 10^3/uL (150-450); RED CELL DISTRIBUTION WIDTH 14.1 % (11.5-14.5); WHITE BLOOD COUNT 5.6 10^3/uL (4.0-10.0)
[2017-08-20 08:00] VITALS: BP 110/55
[2017-08-20] MEDS: CREON-24 CAPSULE PO SCH ×3 (08:00→18:41)
[2017-08-20] MEDS: ACETAMINOPHEN TAB 650MG DOSE (2X325MG) PO PRN ×2 (08:01→18:47)
[2017-08-20] MEDS: ONDANSETRON 4 MG TAB (S0181) PO PRN (08:01)
[2017-08-20 08:34] LABS: ALBUMIN 2.5 GM/DL (3.2-5.2); ALBUMIN/GLOBULIN RATIO 0.76 (1.00-1.93); ALKALINE PHOSPHATASE 84 U/L (45-117); ALT/SGPT 19 U/L (12-78); ANION GAP 8 MEQ/L (8-16); AST/SGOT 14 U/L (7-37); BILIRUBIN,TOTAL 0.3 MG/DL (0.2-1.0); BLOOD UREA NITROGEN 15 MG/DL (7-18); CALCIUM LEVEL 7.5 MG/DL (8.5-10.1); CARBON DIOXIDE LEVEL 26 MEQ/L (21-32); CHLORIDE LEVEL 105 MEQ/L (98-107); CREATININE FOR GFR 0.78 MG/DL (0.55-1.02); GLOMERULAR FILTRATION RATE > 60.0 (>51); GLUCOSE, FASTING 101 MG/DL (70-105); POTASSIUM SERUM 4.1 MEQ/L (3.5-5.1); SODIUM LEVEL 139 MEQ/L (136-145); TOTAL PROTEIN 5.8 GM/DL (6.4-8.2)
[2017-08-20] MEDS: FERROUS GLUCONATE 324 MG TAB PO SCH (08:52)
[2017-08-20] MEDS: PHYTONADIONE 5 MG TAB PO SCH (08:52)
[2017-08-20] MEDS: PANTOPRAZOLE 40MG TAB (PROTONIX) PO SCH (08:52)
[2017-08-20] MEDS: LORATADINE 10 MG TAB PO SCH (08:53)
[2017-08-20] MEDS: ASCORBIC ACID 500 MG TAB PO SCH ×2 (08:53→21:31)
[2017-08-20] MEDS: MULTIVITAMINS/MINERALS THERAP 1 TAB PO SCH ×2 (08:53→21:31)
[2017-08-20] MEDS: MIRALAX *UNIT DOSE* 17GM PACKET PO SCH ×2 (08:54→21:00)
[2017-08-20] MEDS: CALCIUM/VITAMIN D 500 MG TAB PO SCH (09:06)
[2017-08-20] MEDS: SENNA 8.6 MG TAB (SENOKOT) PO SCH ×2 (09:06→21:31)
--- NOTE | 2017-08-20 10:38 | CCN ---
DATE: 08/20/2017 NOTE: Ms. Ocampo continues to have shortness of breath and cough. She notes she is still having some nausea and vomiting. She is using Zofran. She continues have a headache and uses Tylenol as needed. She denies any other new issues. She went down for a peripherally inserted central catheter (PICC) line insertion yesterday which was unsuccessful. The patient denies any current chest pain, any current fevers or chills. She denies any new issues. Vitals: Temperature is 98.7, pulse 105, respiratory rate 22, blood pressure 110/55, pulse oximetry 95% room air. General: The patient is alert and oriented times three. HEENT: Head is normocephalic, atraumatic. Trachea is midline. Moist mucous membranes. No jugular venous distention (JVD). Chest: Diminished breath sounds, but clear. No wheezes, Rales, Rhonchi. No accessory muscle use. Heart: Regular rate and rhythm. No murmurs appreciated. Nondisplaced PMI. Abdomen: Positive bowel sounds, soft, nontender. Nondistended. No rebound or guarding. Extremities: No edema. LABORATORIES: WBC 5.6, hemoglobin 11.2, hematocrit 35.4, platelets 219. Sodium 139, potassium 4.1, chloride 105, carbon dioxide 26, BUN 15, creatinine 0.78, glucose 101, calcium 7.5, total bilirubin 0.3, AST 214, ALT 19, alk phos 84, total protein 5.8, albumin 2.5. ASSESSMENT AND PLAN: 1. Cystic fibrosis exacerbation. The patient is on IV tobramycin and IV Primaxin. Sputum culture is pending. PICC line was attempted yesterday, but was unsuccessful. She is currently tolerating the IV access. She is on Advair. 2. Cystic fibrosis with respiratory insufficiency and pancreatic insufficiency. The patient is on Pulmozyme. She is on pancrelipase. She is on vitamin K. She follows in [place] at the cystic fibrosis clinic and has been working with them to obtain DANYELL Podhaler and Kalydeco meds which she had been on previously. 3. Constipation. The patient is on MiraLax and senna. 4. Diabetes mellitus. The patient is on sliding-scale insulin and Levemir. [facility]
[2017-08-20] MEDS: ADVAIR HFA 230/21MCG INHALER INH SCH ×2 (11:12→20:05)
[2017-08-20] MEDS: FLUTICASONE PROP 0.05% NASAL SPRAY 16 GM (FLONASE) SCH (12:32)
[2017-08-20] MEDS: CREON-24 CAPSULE PO PRN (14:09)
[2017-08-20 16:00] VITALS: BP_SYST 105
[2017-08-20 20:15] VITALS: BP 106/52
[2017-08-20] MEDS: LEVEMIR (INSULIN DETEMIR) 1 UNITS/0.01ML SC SCH (21:32)
[2017-08-21] MEDS: NS IV SCH (01:05)
[2017-08-21] MEDS: TOBRAMYCIN SULF IV SCH (01:05)
[2017-08-21] MEDS: IMIPENEM/CILASTATIN 1,000 MG in NS 250 ML IV SCH ×4 (02:33→20:37)
[2017-08-21 04:00] VITALS: BP 108/57
[2017-08-21] MEDS: HEPARIN SOD (PORCINE) 5000 UNITS/ML VIAL SC SCH ×3 (05:42→22:20)
[2017-08-21] MEDS: DORNASE INHALATION SOLN 1 MG/ML 2.5 ML AMP INH SCH ×2 (07:21→20:16)
[2017-08-21] MEDS: ADVAIR HFA 230/21MCG INHALER INH SCH ×2 (07:21→20:18)
[2017-08-21] MEDS: HYPERSAL INH SCH ×2 (07:21→20:18)
[2017-08-21 08:00] VITALS: BP 93/54
[2017-08-21] MEDS: SENNA 8.6 MG TAB (SENOKOT) PO SCH ×2 (08:52→20:38)
[2017-08-21] MEDS: MIRALAX *UNIT DOSE* 17GM PACKET PO SCH ×2 (08:53→20:38)
[2017-08-21] MEDS: MULTIVITAMINS/MINERALS THERAP 1 TAB PO SCH ×2 (08:54→20:37)
[2017-08-21] MEDS: LORATADINE 10 MG TAB PO SCH (08:54)
[2017-08-21] MEDS: PANTOPRAZOLE 40MG TAB (PROTONIX) PO SCH (08:54)
[2017-08-21] MEDS: ASCORBIC ACID 500 MG TAB PO SCH ×2 (08:54→20:38)
[2017-08-21] MEDS: CREON-24 CAPSULE PO SCH ×3 (08:55→19:23)
[2017-08-21] MEDS: FERROUS GLUCONATE 324 MG TAB PO SCH (08:56)
[2017-08-21] MEDS: VITAMIN D 50,000 UNITS CAPSULE (ERGOCALCIFEROL 1.25MG) PO SCH (08:56)
[2017-08-21] MEDS: CALCIUM/VITAMIN D 500 MG TAB PO SCH (08:56)
[2017-08-21] MEDS: FLUTICASONE PROP 0.05% NASAL SPRAY 16 GM (FLONASE) SCH (08:57)
[2017-08-21] MEDS: HumaLOG INSULIN (NovoLOG) PER UNIT SC SCH ×4 (09:11→21:00)
--- NOTE | 2017-08-21 13:25 | DSES ---
DATE OF ADMISSION: 08/18/2017 DATE OF DISCHARGE/TRANSFER: 08/21/2017 ATTENDING PHYSICIAN: Jorge Toribio MD SAIL REPAIR PERSON: Miriam Francis MD CONDITION ON DISCHARGE/TRANSFER: Stable. DISCHARGE DIAGNOSIS: Cystic fibrosis exacerbation. HOSPITAL COURSE: Jovanna is a 52-year-old white female with cystic fibrosis who was admitted for a cystic fibrosis exacerbation. Attempts had previously been made to treat her as an outpatient by both Dr. Francis and Naina. Her sputum had started to grow moderate Staphylococcus Aureus and few Pseudomonas. She had been started on doxycycline outpatient, which was then changed to ciprofloxacin and minocycline when she was seen in [place] in June. On admission, the patient was placed on IV antibiotics, imipenem/cilastatin 1 gram every 6 hours and tobramycin 800 mg every 24 hours. She was also placed on Flonase, Advair HFA 230/21, home Pulmozyme and Proventil nebulizers. She was supposed to get a PICC insertion on 08/19/2017, however that was unsuccessful. She has been tolerating the IV access for her antibiotics. She has been continued on pancrelipase and vitamin K. The patient has been afebrile since 4:00 a.m. this morning. Her T-max throughout this hospitalization has been 101.3 degrees Fahrenheit. PHYSICAL EXAMINATION ON DISCHARGE: VITALS: Temperature is 98.2, T-max overnight 100.2, pulse 89 and regular, respiratory rate 20, blood pressure 93/54 with a MAP of 67, pulse oximetry is 96 % on room air. GENERAL: Patient is awake and alert. She is cooperative and answers questions appropriately. HEENT: Head is normocephalic, atraumatic. Trachea is midline. Mucous membranes are moist. No JVD is appreciated. CHEST: Diminished breath sounds bilaterally, no rhonchi or wheezes are appreciated. Expiratory phase is equal to inspiratory phase. There is no dullness to percussion. Patient does not use accessory muscles, no retractions are noted. HEART: Regular rate and rhythm. No murmurs, gallops, or rubs appreciated. ABDOMEN: Positive bowel sounds, soft and nontender to palpation. EXTREMITIES: No edema, clubbing or cyanosis. MEDICATIONS ON DISCHARGE: Vitamin K 5 mg by mouth at 0900 Flonase 2 sprays each nostrils daily Imipenem/cilastatin 1 g every 6 hours IV Protonix 40 mg daily by mouth Os-Alexis D 1 gram daily by mouth Claritin 10 mg by mouth daily Fergon 324 mg by mouth daily Drisdol 50,000 units by mouth Thursday/Thursday/Thursday MiraLAX by mouth twice a day Creon24 4 each with meals Tobramycin 800 mg IV daily 0200 Heparin 5000 units every 8 hours subcutaneously Theragram-M 1 tab twice a day by mouth Senna one tab by mouth twice a day Vitamin C 500 mg by mouth twice a day Levemir 16 units at hours sleep subcutaneously Humalog sliding scale insulin Advair HFA 230/21 2 puffs RBID Pulmozyme 2.5 mg RBID Proventil nebs Tylenol 650 mg by mouth every 4 hours as needed Zofran 4 mg by mouth every 6 hours as needed Pancrelipase 2 each by mouth as directed ASSESSMENT: 52-year-old female with a past medical history of cystic fibrosis, admitted for cystic fibrosis exacerbation. Establishment of a PICC line for IV antibiotics was unsuccessful. She is currently tolerating IV antibiotics via peripheral line. She will be transferred to the cystic fibrosis clinic at [place]. My faculty preceptor for this patient encounter was physically present during the encounter and was fully available. All aspects of the patient interview, examination, medical decision making process, and medical care plan development were reviewed and approved by the faculty preceptor. The faculty preceptor is aware and concurs with the plan as stated in the body of this note and will attest to such by his/her co-signature. RAJIV
[2017-08-21 16:00] VITALS: BP 105/57
[2017-08-21 20:00] VITALS: BP 119/58
[2017-08-21] MEDS: LEVEMIR (INSULIN DETEMIR) 1 UNITS/0.01ML SC SCH (22:20)
[2017-08-22] VITALS: BP 109/59
[2017-08-22] MEDS: NS IV SCH (01:08)
[2017-08-22] MEDS: TOBRAMYCIN SULF IV SCH (01:08)
[2017-08-22] MEDS: IMIPENEM/CILASTATIN 1,000 MG in NS 250 ML IV SCH ×4 (03:20→20:33)
[2017-08-22] MEDS: HEPARIN SOD (PORCINE) 5000 UNITS/ML VIAL SC SCH ×3 (06:45→21:48)
[2017-08-22] MEDS: ALBUTEROL SULFATE 2.5 MG/0.5 ML INH NEB SOLN NEB PRN (07:45)
[2017-08-22] MEDS: ADVAIR HFA 230/21MCG INHALER INH SCH ×2 (07:45→20:25)
[2017-08-22] MEDS: DORNASE INHALATION SOLN 1 MG/ML 2.5 ML AMP INH SCH ×2 (07:45→20:25)
[2017-08-22 08:00] VITALS: BP 115/61
[2017-08-22] MEDS: HYPERSAL INH SCH ×2 (08:03→20:25)
[2017-08-22] MEDS: FLUTICASONE PROP 0.05% NASAL SPRAY 16 GM (FLONASE) SCH (10:12)
[2017-08-22] MEDS: MIRALAX *UNIT DOSE* 17GM PACKET PO SCH ×2 (10:13→21:48)
[2017-08-22] MEDS: SENNA 8.6 MG TAB (SENOKOT) PO SCH ×2 (10:15→21:48)
[2017-08-22] MEDS: PANTOPRAZOLE 40MG TAB (PROTONIX) PO SCH (10:15)
[2017-08-22] MEDS: MULTIVITAMINS/MINERALS THERAP 1 TAB PO SCH ×2 (10:15→21:48)
[2017-08-22] MEDS: LORATADINE 10 MG TAB PO SCH (10:15)
[2017-08-22] MEDS: CREON-24 CAPSULE PO SCH ×3 (10:15→18:38)
[2017-08-22] MEDS: CALCIUM/VITAMIN D 500 MG TAB PO SCH (10:16)
[2017-08-22] MEDS: ASCORBIC ACID 500 MG TAB PO SCH ×2 (10:16→21:48)
[2017-08-22] MEDS: FERROUS GLUCONATE 324 MG TAB PO SCH (10:17)
[2017-08-22] MEDS: HumaLOG INSULIN (NovoLOG) PER UNIT SC SCH ×4 (10:18→21:00)
[2017-08-22] MEDS: LINEZOLID 600MG TABLET (ZYVOX) PO SCH ×2 (15:10→21:48)
[2017-08-22 16:00] VITALS: BP 121/59
[2017-08-22 20:00] VITALS: BP 137/84
[2017-08-22] MEDS: LEVEMIR (INSULIN DETEMIR) 1 UNITS/0.01ML SC SCH (21:55)
[2017-08-23] VITALS: BP 140/67
[2017-08-23] MEDS: IMIPENEM/CILASTATIN 1,000 MG in NS 250 ML IV SCH (02:27)
[2017-08-23] MEDS: TOBRAMYCIN SULF IV SCH (04:29)
[2017-08-23] MEDS: NS IV SCH (04:29)
[2017-08-23] MEDS: HEPARIN SOD (PORCINE) 5000 UNITS/ML VIAL SC SCH ×3 (06:29→21:36)
[2017-08-23] MEDS: ACETAMINOPHEN TAB 650MG DOSE (2X325MG) PO PRN (06:43)
[2017-08-23 06:54] LABS: MEAN CORPUSCULAR HEMOGLOBIN 25.8 pg (27.0-33.0); MEAN CORPUSCULAR HGB CONC 31.2 g/dl (32.0-36.5); MEAN CORPUSCULAR VOLUME 82.7 fl (80.0-96.0); PLATELET COUNT, AUTOMATED 240 10^3/uL (150-450); RED CELL DISTRIBUTION WIDTH 14.1 % (11.5-14.5); WHITE BLOOD COUNT 3.7 10^3/uL (4.0-10.0)
[2017-08-23] MEDS ORDERED: SLF 3 ML SYR IV PRN (07:15)
[2017-08-23 08:05] VITALS: BP 136/63
[2017-08-23] MEDS: ADVAIR HFA 230/21MCG INHALER INH SCH ×2 (08:46→20:46)
[2017-08-23] MEDS: DORNASE INHALATION SOLN 1 MG/ML 2.5 ML AMP INH SCH ×2 (08:47→20:46)
[2017-08-23] MEDS: HYPERSAL INH SCH ×2 (09:00→20:46)
[2017-08-23] MEDS: HumaLOG INSULIN (NovoLOG) PER UNIT SC SCH ×4 (09:13→21:00)
[2017-08-23] MEDS: CREON-24 CAPSULE PO SCH ×3 (09:50→18:43)
[2017-08-23] MEDS: SENNA 8.6 MG TAB (SENOKOT) PO SCH ×2 (09:50→21:35)
[2017-08-23] MEDS: MIRALAX *UNIT DOSE* 17GM PACKET PO SCH ×2 (09:50→21:35)
[2017-08-23] MEDS: PANTOPRAZOLE 40MG TAB (PROTONIX) PO SCH (09:50)
[2017-08-23] MEDS: MULTIVITAMINS/MINERALS THERAP 1 TAB PO SCH ×2 (09:50→21:35)
[2017-08-23] MEDS: LINEZOLID 600MG TABLET (ZYVOX) PO SCH ×2 (09:51→21:35)
[2017-08-23] MEDS: FERROUS GLUCONATE 324 MG TAB PO SCH (09:51)
[2017-08-23] MEDS: LORATADINE 10 MG TAB PO SCH (09:51)
[2017-08-23] MEDS: ASCORBIC ACID 500 MG TAB PO SCH ×2 (09:51→21:35)
[2017-08-23] MEDS: CALCIUM/VITAMIN D 500 MG TAB PO SCH (09:52)
[2017-08-23] MEDS: FLUTICASONE PROP 0.05% NASAL SPRAY 16 GM (FLONASE) SCH (09:54)
[2017-08-23] MEDS: TOBRAMYCIN INHAL 300 MG/5 ML SOLN INH SCH ×2 (13:58→20:45)
[2017-08-23] MEDS: SLF 3 ML SYR IV SCH ×2 (14:41→21:37)
[2017-08-23 16:00] VITALS: BP 128/64
[2017-08-23 20:00] VITALS: BP 138/74
[2017-08-23] MEDS: LEVEMIR (INSULIN DETEMIR) 1 UNITS/0.01ML SC SCH (21:37)
[2017-08-24] VITALS: BP 150/72
[2017-08-24] MEDS: HEPARIN SOD (PORCINE) 5000 UNITS/ML VIAL SC SCH ×3 (06:55→22:47)
[2017-08-24] MEDS: SLF 3 ML SYR IV SCH ×3 (06:55→22:48)
[2017-08-24 08:00] VITALS: BP 147/72
[2017-08-24] MEDS: TOBRAMYCIN INHAL 300 MG/5 ML SOLN INH SCH ×2 (08:24→20:17)
[2017-08-24] MEDS: DORNASE INHALATION SOLN 1 MG/ML 2.5 ML AMP INH SCH ×2 (08:24→20:16)
[2017-08-24] MEDS: HYPERSAL INH SCH ×2 (08:25→20:17)
[2017-08-24] MEDS: PANTOPRAZOLE 40MG TAB (PROTONIX) PO SCH (09:09)
[2017-08-24] MEDS: SENNA 8.6 MG TAB (SENOKOT) PO SCH ×2 (09:09→21:23)
[2017-08-24] MEDS: LORATADINE 10 MG TAB PO SCH (09:09)
[2017-08-24] MEDS: ASCORBIC ACID 500 MG TAB PO SCH ×2 (09:10→21:23)
[2017-08-24] MEDS: MULTIVITAMINS/MINERALS THERAP 1 TAB PO SCH ×2 (09:10→21:22)
[2017-08-24] MEDS: MIRALAX *UNIT DOSE* 17GM PACKET PO SCH ×2 (09:12→21:22)
[2017-08-24] MEDS: HumaLOG INSULIN (NovoLOG) PER UNIT SC SCH ×4 (09:13→21:00)
[2017-08-24] MEDS: CREON-24 CAPSULE PO SCH ×3 (09:13→19:14)
[2017-08-24] MEDS: LINEZOLID 600MG TABLET (ZYVOX) PO SCH ×2 (09:15→21:23)
[2017-08-24] MEDS: FLUTICASONE PROP 0.05% NASAL SPRAY 16 GM (FLONASE) SCH (09:27)
[2017-08-24] MEDS: FERROUS GLUCONATE 324 MG TAB PO SCH (10:06)
[2017-08-24] MEDS: CALCIUM/VITAMIN D 500 MG TAB PO SCH (10:07)
[2017-08-24] MEDS: VITAMIN D 50,000 UNITS CAPSULE (ERGOCALCIFEROL 1.25MG) PO SCH (10:07)
[2017-08-24] MEDS ORDERED: ZYVO100T PO (13:55)
[2017-08-24] MEDS ORDERED: [UNRECOGNIZED DRUG - CODE] INH (13:55)
[2017-08-24 16:00] VITALS: BP 162/75
[2017-08-24 20:00] VITALS: BP 134/63
[2017-08-24] MEDS: ADVAIR HFA 230/21MCG INHALER INH SCH ×2 (20:15→20:16)
[2017-08-24] MEDS: LEVEMIR (INSULIN DETEMIR) 1 UNITS/0.01ML SC SCH (21:22)
[2017-08-25] VITALS: BP 136/73
[2017-08-25] MEDS: HEPARIN SOD (PORCINE) 5000 UNITS/ML VIAL SC SCH ×3 (05:52→22:45)
[2017-08-25] MEDS: SLF 3 ML SYR IV SCH ×3 (06:00→22:00)
[2017-08-25] MEDS: DORNASE INHALATION SOLN 1 MG/ML 2.5 ML AMP INH SCH ×2 (07:59→20:00)
[2017-08-25] MEDS: ADVAIR HFA 230/21MCG INHALER INH SCH ×2 (07:59→21:11)
[2017-08-25] MEDS: HYPERSAL INH SCH ×2 (08:00→21:11)
[2017-08-25] MEDS: TOBRAMYCIN INHAL 300 MG/5 ML SOLN INH SCH ×2 (08:00→20:00)
[2017-08-25] MEDS: LINEZOLID 600MG TABLET (ZYVOX) PO SCH ×2 (09:18→20:52)
[2017-08-25] MEDS: PANTOPRAZOLE 40MG TAB (PROTONIX) PO SCH (09:19)
[2017-08-25] MEDS: MULTIVITAMINS/MINERALS THERAP 1 TAB PO SCH ×2 (09:19→20:52)
[2017-08-25] MEDS: LORATADINE 10 MG TAB PO SCH (09:19)
[2017-08-25] MEDS: SENNA 8.6 MG TAB (SENOKOT) PO SCH ×2 (09:19→20:52)
[2017-08-25] MEDS: MIRALAX *UNIT DOSE* 17GM PACKET PO SCH ×2 (09:20→20:53)
[2017-08-25] MEDS: CALCIUM/VITAMIN D 500 MG TAB PO SCH (09:20)
[2017-08-25] MEDS: ASCORBIC ACID 500 MG TAB PO SCH ×2 (09:20→20:52)
[2017-08-25] MEDS: FERROUS GLUCONATE 324 MG TAB PO SCH (09:20)
[2017-08-25] MEDS: FLUTICASONE PROP 0.05% NASAL SPRAY 16 GM (FLONASE) SCH (09:21)
[2017-08-25] MEDS: CREON-24 CAPSULE PO SCH ×3 (09:22→19:21)
[2017-08-25] MEDS: HumaLOG INSULIN (NovoLOG) PER UNIT SC SCH ×4 (09:45→21:00)
[2017-08-25 16:00] VITALS: BP 142/67
[2017-08-25 20:00] VITALS: BP 157/67
[2017-08-25] MEDS: LEVEMIR (INSULIN DETEMIR) 1 UNITS/0.01ML SC SCH (22:45)
[2017-08-26] VITALS: BP 154/74
[2017-08-26] MEDS: SLF 3 ML SYR IV SCH ×3 (04:43→21:48)
[2017-08-26] MEDS: HEPARIN SOD (PORCINE) 5000 UNITS/ML VIAL SC SCH ×3 (06:02→21:07)
[2017-08-26 06:55] LABS: BASO # 0.1 10^3/uL (0.0-0.2); BASO % 0.9 % (0.0-1.0); EOS # 0.2 10^3/uL (0.0-0.50); EOS % 3.9 % (0.0-3.0); IMMATURE GRANULOCYTE % 0.3 % (0-0); LYMPH # 2.7 10^3/uL (1.5-4.5); LYMPH % 46.1 % (24.0-44.0); MEAN CORPUSCULAR HEMOGLOBIN 25.8 pg (27.0-33.0); MEAN CORPUSCULAR HGB CONC 31.5 g/dl (32.0-36.5); MEAN CORPUSCULAR VOLUME 81.8 fl (80.0-96.0); MONO # 0.4 10^3/uL (0.0-0.8); MONO % 6.7 % (0.0-5.0); NEUTROPHILS # 2.5 10^3/uL (1.8-7.7); NEUTROPHILS % 42.1 % (36.0-66.0); PLATELET COUNT, AUTOMATED 296 10^3/uL (150-450); RED CELL DISTRIBUTION WIDTH 13.7 % (11.5-14.5); WHITE BLOOD COUNT 5.8 10^3/uL (4.0-10.0)
[2017-08-26 07:18] LABS: ANION GAP 8 MEQ/L (8-16); BLOOD UREA NITROGEN 14 MG/DL (7-18); CALCIUM LEVEL 8.9 MG/DL (8.5-10.1); CARBON DIOXIDE LEVEL 27 MEQ/L (21-32); CHLORIDE LEVEL 104 MEQ/L (98-107); CREATININE FOR GFR 0.76 MG/DL (0.55-1.02); GLOMERULAR FILTRATION RATE > 60.0 (>51); GLUCOSE, FASTING 165 MG/DL (70-105); POTASSIUM SERUM 4.2 MEQ/L (3.5-5.1); SODIUM LEVEL 139 MEQ/L (136-145)
[2017-08-26 08:00] VITALS: BP 135/69
[2017-08-26] MEDS: ADVAIR HFA 230/21MCG INHALER INH SCH ×2 (08:11→20:36)
[2017-08-26] MEDS: DORNASE INHALATION SOLN 1 MG/ML 2.5 ML AMP INH SCH ×2 (08:11→20:36)
[2017-08-26] MEDS: TOBRAMYCIN INHAL 300 MG/5 ML SOLN INH SCH ×2 (08:12→20:35)
[2017-08-26] MEDS: HYPERSAL INH SCH ×2 (08:13→20:36)
[2017-08-26] MEDS: CREON-24 CAPSULE PO SCH ×3 (09:40→18:20)
[2017-08-26] MEDS: MIRALAX *UNIT DOSE* 17GM PACKET PO SCH ×2 (09:41→21:07)
[2017-08-26] MEDS: FLUTICASONE PROP 0.05% NASAL SPRAY 16 GM (FLONASE) SCH (09:42)
[2017-08-26] MEDS: SENNA 8.6 MG TAB (SENOKOT) PO SCH ×2 (09:43→21:15)
[2017-08-26] MEDS: PANTOPRAZOLE 40MG TAB (PROTONIX) PO SCH (09:43)
[2017-08-26] MEDS: LORATADINE 10 MG TAB PO SCH (09:43)
[2017-08-26] MEDS: FERROUS GLUCONATE 324 MG TAB PO SCH (09:43)
[2017-08-26] MEDS: LINEZOLID 600MG TABLET (ZYVOX) PO SCH ×2 (09:44→21:08)
[2017-08-26] MEDS: MULTIVITAMINS/MINERALS THERAP 1 TAB PO SCH ×2 (09:44→21:08)
[2017-08-26] MEDS: CALCIUM/VITAMIN D 500 MG TAB PO SCH (09:44)
[2017-08-26] MEDS: ASCORBIC ACID 500 MG TAB PO SCH ×2 (09:44→21:08)
[2017-08-26] MEDS: HumaLOG INSULIN (NovoLOG) PER UNIT SC SCH ×4 (09:45→21:00)
[2017-08-26] MEDS: VITAMIN D 50,000 UNITS CAPSULE (ERGOCALCIFEROL 1.25MG) PO SCH (10:06)
[2017-08-26 16:00] VITALS: BP 148/74
[2017-08-26 21:00] VITALS: BP 140/78
[2017-08-26] MEDS: LEVEMIR (INSULIN DETEMIR) 1 UNITS/0.01ML SC SCH (22:22)
[2017-08-27] VITALS: BP 149/72
[2017-08-27] MEDS: SLF 3 ML SYR IV SCH ×3 (04:43→21:18)
[2017-08-27] MEDS: HEPARIN SOD (PORCINE) 5000 UNITS/ML VIAL SC SCH ×3 (07:29→21:17)
[2017-08-27] MEDS: TOBRAMYCIN INHAL 300 MG/5 ML SOLN INH SCH ×2 (08:17→09:49)
[2017-08-27] MEDS: ADVAIR HFA 230/21MCG INHALER INH SCH ×2 (08:17→20:33)
[2017-08-27] MEDS: DORNASE INHALATION SOLN 1 MG/ML 2.5 ML AMP INH SCH ×2 (08:17→20:34)
[2017-08-27] MEDS: HYPERSAL INH SCH ×2 (08:18→20:34)
[2017-08-27] MEDS: MULTIVITAMINS/MINERALS THERAP 1 TAB PO SCH ×2 (09:43→21:18)
[2017-08-27] MEDS: MIRALAX *UNIT DOSE* 17GM PACKET PO SCH ×2 (09:43→21:18)
[2017-08-27] MEDS: PHYTONADIONE 5 MG TAB PO SCH (09:43)
[2017-08-27] MEDS: LINEZOLID 600MG TABLET (ZYVOX) PO SCH ×2 (09:44→21:18)
[2017-08-27] MEDS: FERROUS GLUCONATE 324 MG TAB PO SCH (09:44)
[2017-08-27] MEDS: CREON-24 CAPSULE PO SCH ×3 (09:44→18:00)
[2017-08-27] MEDS: CALCIUM/VITAMIN D 500 MG TAB PO SCH (09:44)
[2017-08-27] MEDS: ASCORBIC ACID 500 MG TAB PO SCH ×2 (09:45→21:18)
[2017-08-27] MEDS: FLUTICASONE PROP 0.05% NASAL SPRAY 16 GM (FLONASE) SCH (09:45)
[2017-08-27] MEDS: LORATADINE 10 MG TAB PO SCH (09:45)
[2017-08-27] MEDS: HumaLOG INSULIN (NovoLOG) PER UNIT SC SCH ×4 (09:50→21:00)
[2017-08-27] MEDS: PANTOPRAZOLE 40MG TAB (PROTONIX) PO SCH (09:58)
[2017-08-27] MEDS: SENNA 8.6 MG TAB (SENOKOT) PO SCH ×2 (09:58→21:18)
[2017-08-27 16:04] VITALS: BP 146/72
[2017-08-27 17:15] VITALS: BP 146/72
[2017-08-27 20:00] VITALS: BP 150/74
[2017-08-27] MEDS: LEVEMIR (INSULIN DETEMIR) 1 UNITS/0.01ML SC SCH (22:33)
[2017-08-28] VITALS: BP 135/74
[2017-08-28] MEDS: SLF 3 ML SYR IV SCH (06:00)
[2017-08-28] MEDS: HEPARIN SOD (PORCINE) 5000 UNITS/ML VIAL SC SCH (06:14)
[2017-08-28] MEDS: DORNASE INHALATION SOLN 1 MG/ML 2.5 ML AMP INH SCH (07:50)
[2017-08-28] MEDS: ADVAIR HFA 230/21MCG INHALER INH SCH (07:50)
[2017-08-28] MEDS: TOBRAMYCIN INHAL 300 MG/5 ML SOLN INH SCH (07:51)
[2017-08-28] MEDS: HYPERSAL INH SCH (07:51)
[2017-08-28 08:00] VITALS: BP 136/63
[2017-08-28] MEDS: HumaLOG INSULIN (NovoLOG) PER UNIT SC SCH (09:01)
[2017-08-28] MEDS: CREON-24 CAPSULE PO SCH (09:01)
[2017-08-28] MEDS: LORATADINE 10 MG TAB PO SCH (09:02)
[2017-08-28] MEDS: FERROUS GLUCONATE 324 MG TAB PO SCH (09:03)
[2017-08-28] MEDS: MIRALAX *UNIT DOSE* 17GM PACKET PO SCH (09:03)
[2017-08-28] MEDS: VITAMIN D 50,000 UNITS CAPSULE (ERGOCALCIFEROL 1.25MG) PO SCH (09:03)
[2017-08-28] MEDS: CALCIUM/VITAMIN D 500 MG TAB PO SCH (09:04)
[2017-08-28] MEDS: PANTOPRAZOLE 40MG TAB (PROTONIX) PO SCH (09:05)
[2017-08-28] MEDS: ASCORBIC ACID 500 MG TAB PO SCH (09:05)
[2017-08-28] MEDS: LINEZOLID 600MG TABLET (ZYVOX) PO SCH (09:05)
[2017-08-28] MEDS: SENNA 8.6 MG TAB (SENOKOT) PO SCH (09:05)
[2017-08-28] MEDS: MULTIVITAMINS/MINERALS THERAP 1 TAB PO SCH (09:05)
[2017-08-28] MEDS: FLUTICASONE PROP 0.05% NASAL SPRAY 16 GM (FLONASE) SCH (09:06)
[2017-08-28] MEDS ORDERED: FLUC100T PO (12:37)
--- NOTE | 2017-08-29 16:39 | DSES ---
DATE OF ADMISSION: 08/18/2017 DATE OF DISCHARGE: 08/28/2017 Addendum to the discharge/transfer note dictated 08/21/2017. NOTE: Ms. Ocampo had been accepted in transfer to [facility] for continued treatment of her cystic fibrosis exacerbation. The reason for transfer was inability to obtain peripherally inserted central catheter (PICC) line and the need to have interventional radiology place the line. Unfortunately, [facility] had no beds and she remained at [facility]. Her antibiotics, at that time, had been tobramycin 800 mg daily and Primaxin 1 gram every 6 hours. She continued on these antibiotics until her sputum culture results became available. That culture grew heavy Staphylococcus aureus and few Pseudomonas aeruginosa. Her antibiotics were changed to nebulized tobramycin and Zyvox. Clinically, she did well on these medications and attempts were started at the beginning of this week to obtain these medications as an outpatient so she could be discharged to home to complete her therapy. Eventually, she did get approval for these antibiotics and therefore, she was discharged today. Clinically, Ms. Ocampo continued to improve. By the time of discharge, she no longer had a nocturnal cough and was sleeping well. She is still with cough after treatments, but not otherwise. Her previous right-sided chest pain had resolved. She remained afebrile. Her lung exam had shown generalized diminished air entry, but the adventitious sounds had essentially resolved. Her WBC count had normalized. Ms. Ocampo had spirometry repeated at this time which showed FEV1 1.34L (49%), FVC 1.97L (57%0 and FEV25 -75 was 32%. It was felt safe to discharge her to home. DISCHARGE MEDICATIONS: 1. Same as listed in original discharge summary with the exception that she was no longer on Primaxin and intravenous tobramycin. 2. Additional discharge medications were: - Zyvox 600 mg by mouth twice a day for 10 days - tobramycin nebulization 300 mg twice a day for 10 days - fluconazole 100 mg by mouth daily FOLLOWUP: 1. She is to followup in the pulmonary clinic with Dr. Francis in the first week of September with spirometry at that time. [facility]
== END 2017-08-28 13:20 | disposition home or self-care (01) | DRG 179 ==
LOC: M PED 20:17
PROVIDERS: ADMIT Internal Medicine Pulmonary Disease; ATTEND Internal Medicine Pulmonary Disease
PROC: 05JY3ZZ Inspection of Upper Vein, Percutaneous Approach (ICD-10-PCS; principal; 2017-08-19)
DX: E84.0 Cystic fibrosis with pulmonary manifestations (principal); R05 Cough; K86.89 Other specified diseases of pancreas; B95.61 Methicillin susceptible Staphylococcus aureus infection as the cause of diseases classified elsewhere; E08.9 Diabetes mellitus due to underlying condition without complications; B96.5 Pseudomonas (aeruginosa) (mallei) (pseudomallei) as the cause of diseases classified elsewhere; K59.00 Constipation, unspecified; E84.19 Cystic fibrosis with other intestinal manifestations; M85.80 Other specified disorders of bone density and structure, unspecified site; Z88.2 Allergy status to sulfonamides; Z88.1 Allergy status to other antibiotic agents; Z88.5 Allergy status to narcotic agent; Z88.8 Allergy status to other drugs, medicaments and biological substances; Z79.4 Long term (current) use of insulin; Z79.899 Other long term (current) drug therapy

== ENCOUNTER → 2017-08-18 | Outpatient (REF) | payer MEDICARE ==
[~2017-08-18] MED LIST changes: +ALBU1.25 INH; +ARNU1INH3 INH; +LINZ290C PO; +MIRA33504 PO; +NEXI20CA PO; +PROAAER10 INH; +SODI7NEB3 INH; +TYLE500T78 PO; +VITA1CAP40 PO; +VITMTA PO
== END ==
LOC: M LAB REF 12:56
PROVIDERS: ATTEND Internal Medicine Pulmonary Disease
DX: E84.0 Cystic fibrosis with pulmonary manifestations (principal); R05 Cough

== ENCOUNTER → 2017-09-17 | Outpatient (REF) | payer MEDICARE | LOC: M LAB REF 13:15 | DX: E84.0 Cystic fibrosis with pulmonary manifestations (principal) | CPT/HCPCS: 87184 ==

== ENCOUNTER → 2017-09-29 | Outpatient (REF) | payer MEDICARE ==
[2017-09-29 13:46] LABS: BASO # 0.1 10^3/uL (0.0-0.2); BASO % 1.2 % (0.0-1.0); EOS # 0.2 10^3/uL (0.0-0.50); HEMATOCRIT 39.4 % (36.0-47.0); HEMOGLOBIN 12.7 g/dl (12.0-16.0); IMMATURE GRANULOCYTE % 0.2 % (0-0); LYMPH # 1.7 10^3/uL (1.5-4.5); MEAN CORPUSCULAR HEMOGLOBIN 26.5 pg (27.0-33.0); MEAN CORPUSCULAR HGB CONC 32.2 g/dl (32.0-36.5); MEAN CORPUSCULAR VOLUME 82.3 fl (80.0-96.0); MONO # 0.4 10^3/uL (0.0-0.8); MONO % 6.8 % (0.0-5.0); NEUTROPHILS # 3.7 10^3/uL (1.8-7.7); NEUTROPHILS % 60.8 % (36.0-66.0); PLATELET COUNT, AUTOMATED 294 10^3/uL (150-450); RED BLOOD COUNT 4.79 10^6/uL (4.00-5.40)
[2017-09-29 14:12] LABS: ERYTHROCYTE SEDIMENTATION RATE 18 mm/hr (0-30)
[2017-09-29 14:36] LABS: ALBUMIN 3.4 GM/DL (3.2-5.2); ALBUMIN/GLOBULIN RATIO 0.94 (1.00-1.93); ALKALINE PHOSPHATASE 86 U/L (45-117); ALT/SGPT 21 U/L (12-78); ANION GAP 7 MEQ/L (8-16); AST/SGOT 11 U/L (7-37); BILIRUBIN,TOTAL 0.4 MG/DL (0.2-1.0); BLOOD UREA NITROGEN 13 MG/DL (7-18); C REACTIVE PROTEIN QUANTITATIV < 0.30 MG/DL (0.00-0.30); CALCIUM LEVEL 8.9 MG/DL (8.5-10.1); CARBON DIOXIDE LEVEL 28 MEQ/L (21-32); CHLORIDE LEVEL 104 MEQ/L (98-107); CREATININE FOR GFR 0.85 MG/DL (0.55-1.02); GLOMERULAR FILTRATION RATE > 60.0 (>51); GLUCOSE, FASTING 103 MG/DL (70-105); POTASSIUM SERUM 4.6 MEQ/L (3.5-5.1); SODIUM LEVEL 139 MEQ/L (136-145)
== END ==
LOC: M LAB REF 13:15
DX: E84.0 Cystic fibrosis with pulmonary manifestations (principal)
CPT/HCPCS: 80053

== ENCOUNTER → 2017-10-09 | Outpatient (REF) | payer MEDICARE ==
[2017-10-09 19:17] LABS: BASO # 0.1 10^3/uL (0.0-0.2); BASO % 0.9 % (0.0-1.0); EOS # 0.1 10^3/uL (0.0-0.50); HEMATOCRIT 37.4 % (36.0-47.0); HEMOGLOBIN 11.6 g/dl (12.0-16.0); IMMATURE GRANULOCYTE % 0.2 % (0-0); LYMPH # 1.2 10^3/uL (1.5-4.5); LYMPH % 21.7 % (24.0-44.0); MEAN CORPUSCULAR HEMOGLOBIN 26.2 pg (27.0-33.0); MEAN CORPUSCULAR VOLUME 84.4 fl (80.0-96.0); MONO # 0.4 10^3/uL (0.0-0.8); MONO % 6.8 % (0.0-5.0); NEUTROPHILS # 3.9 10^3/uL (1.8-7.7); NEUTROPHILS % 68.4 % (36.0-66.0); PLATELET COUNT, AUTOMATED 282 10^3/uL (150-450); RED BLOOD COUNT 4.43 10^6/uL (4.00-5.40); RED CELL DISTRIBUTION WIDTH 15.2 % (11.5-14.5); WHITE BLOOD COUNT 5.6 10^3/uL (4.0-10.0)
[2017-10-09 19:43] LABS: ALBUMIN 3.3 GM/DL (3.2-5.2); ALBUMIN/GLOBULIN RATIO 0.97 (1.00-1.93); ALKALINE PHOSPHATASE 87 U/L (45-117); ALT/SGPT 19 U/L (12-78); ANION GAP 8 MEQ/L (8-16); AST/SGOT 10 U/L (7-37); BILIRUBIN,TOTAL 0.3 MG/DL (0.2-1.0); BLOOD UREA NITROGEN 14 MG/DL (7-18); C REACTIVE PROTEIN QUANTITATIV < 0.30 MG/DL (0.00-0.30); CALCIUM LEVEL 8.4 MG/DL (8.5-10.1); CARBON DIOXIDE LEVEL 25 MEQ/L (21-32); CHLORIDE LEVEL 107 MEQ/L (98-107); CREATININE FOR GFR 0.92 MG/DL (0.55-1.02); GLOMERULAR FILTRATION RATE > 60.0 (>51); GLUCOSE, FASTING 228 MG/DL (70-100); POTASSIUM SERUM 4.5 MEQ/L (3.5-5.1); SODIUM LEVEL 140 MEQ/L (136-145); TOTAL PROTEIN 6.7 GM/DL (6.4-8.2)
[2017-10-09 21:18] LABS: ERYTHROCYTE SEDIMENTATION RATE 25 mm/hr (0-30)
== END ==
LOC: M LAB REF 16:40
DX: E84.0 Cystic fibrosis with pulmonary manifestations (principal)
CPT/HCPCS: 80053

== ENCOUNTER → 2017-12-29 | Outpatient (REF) | payer MEDICARE | LOC: M LAB REF 12:57 | DX: E84.0 Cystic fibrosis with pulmonary manifestations (principal) | CPT/HCPCS: 87184; 87205 ==

== ENCOUNTER → 2018-06-23 | Outpatient (REF) | payer MEDICARE | LOC: M LAB REF 12:57 | DX: E84.0 Cystic fibrosis with pulmonary manifestations (principal); R05 Cough | CPT/HCPCS: 87184 ==

== ENCOUNTER → 2018-08-09 | Outpatient (CLI) | payer MEDICARE ==
[~2018-08-09] MED LIST changes: -/ADVA50050 INH; -/ESOM40CA PO; -/ONDA4TA PO; -AMIT24CA7 PO; -AMITIZA; -AMITIZA PO; -AQUACAP PO; -CALTRATE; -CALTRATE PO; -CALTTAB11 PO; -CIPR750T5 PO; -CLAR1TAB2 PO; -CLAR5CHW OR; -COLA100C2 OR; -COLA100C5 PO; -CREO24CA PO; -DEXI60CA PO; -DEXI60CA2 PO; -DOXY150C PO; -DRIS50002 PO; -FLAXOIL PO; -FLUC10TA OR; -INSUH10VL SC; -INSUH10VL SQ; -INSULANT; -INSULANT SC; +ISOVUE-300 61% 50ML VIAL (Q9967) As Ordered; -KALY150T PO; -KALYDECO PO; -KETO-28; -LEVA12INH INH; +LIDOCAINE 1% MDV 20ML VIAL As Ordered; -METO10TA2 OR; -MIRA3350 PO; -MIRALEX PO; -MULTIVIT; -NEXI40CA PO; -NOVOLOG100 MG/ML; -PHYT5TA PO; -PULM1SOL INH; -SODI3NEB INH; -TOBRAMYCIN; -VITA100T17 OR; -VITA100T56 PO; -VITA500046 PO; -VITA500047 PO; -VITA500C24 PO; -VITAMIN D50000 UNT PO; -XOPE1.252 INH; -[UNRECOGNIZED DRUG - CODE] IN; -[UNRECOGNIZED DRUG - CODE] IN; -[UNRECOGNIZED DRUG - CODE] INH; -[UNRECOGNIZED DRUG - OTHER]; -[UNRECOGNIZED DRUG - OTHER]; -[UNRECOGNIZED DRUG - OTHER] INH; -[UNRECOGNIZED DRUG - OTHER] NEB; -ferrous sulfate PO; -lantus insulin SC; -mucinex PO; -multivitamin PO; -vit c PO
== END ==
LOC: M RADPRO 15:00
DX: E84.9 Cystic fibrosis, unspecified (principal); I87.1 Compression of vein; Z88.8 Allergy status to other drugs, medicaments and biological substances; Z88.2 Allergy status to sulfonamides; Z88.5 Allergy status to narcotic agent; Z88.1 Allergy status to other antibiotic agents; Z79.4 Long term (current) use of insulin; Z79.899 Other long term (current) drug therapy
CPT/HCPCS: 36569

== ENCOUNTER → 2018-08-16 | Outpatient (REF) | payer MEDICARE ==
[2018-08-16 13:31] LABS: BASO # 0.1 10^3/uL (0.0-0.2); BASO % 0.8 % (0.0-1.0); EOS # 0.3 10^3/uL (0.0-0.50); EOS % 4.5 % (0.0-3.0); HEMOGLOBIN 12.5 g/dl (12.0-15.5); IMMATURE GRANULOCYTE % 0.3 % (0-3.0); LYMPH # 1.9 10^3/uL (1.5-4.5); MEAN CORPUSCULAR HEMOGLOBIN 25.8 pg (27.0-33.0); MEAN CORPUSCULAR HGB CONC 30.5 g/dl (32.0-36.5); MEAN CORPUSCULAR VOLUME 84.5 fl (80.0-96.0); MONO # 0.4 10^3/uL (0.0-0.8); MONO % 5.9 % (0.0-5.0); NEUTROPHILS # 3.7 10^3/uL (1.8-7.7); NEUTROPHILS % 58.5 % (36.0-66.0); PLATELET COUNT, AUTOMATED 278 10^3/uL (150-450); RED BLOOD COUNT 4.85 10^6/uL (4.00-5.40); RED CELL DISTRIBUTION WIDTH 13.6 % (11.5-14.5); WHITE BLOOD COUNT 6.3 10^3/uL (4.0-10.0)
[2018-08-16 13:51] LABS: ALBUMIN 3.3 GM/DL (3.2-5.2); ALBUMIN/GLOBULIN RATIO 1.03 (1.00-1.93); ALKALINE PHOSPHATASE 110 U/L (45-117); ALT/SGPT 21 U/L (12-78); ANION GAP 6 MEQ/L (8-16); AST/SGOT 11 U/L (7-37); BILIRUBIN,TOTAL 0.3 MG/DL (0.2-1.0); BLOOD UREA NITROGEN 8 MG/DL (7-18); CALCIUM LEVEL 8.1 MG/DL (8.5-10.1); CARBON DIOXIDE LEVEL 29 MEQ/L (21-32); CHLORIDE LEVEL 103 MEQ/L (98-107); CREATININE FOR GFR 0.78 MG/DL (0.55-1.30); GLOMERULAR FILTRATION RATE > 60.0 (>51); GLUCOSE, FASTING 297 MG/DL (70-100); POTASSIUM SERUM 4.9 MEQ/L (3.5-5.1); SODIUM LEVEL 138 MEQ/L (136-145); TOTAL PROTEIN 6.5 GM/DL (6.4-8.2)
== END ==
LOC: M LAB REF 12:30
DX: E84.9 Cystic fibrosis, unspecified (principal)
CPT/HCPCS: 80053

== ENCOUNTER → 2018-08-24 | Outpatient (REF) | payer MEDICARE ==
[2018-08-24 14:03] LABS: BASO # 0.1 10^3/uL (0.0-0.2); BASO % 1.2 % (0.0-1.0); EOS # 0.3 10^3/uL (0.0-0.50); EOS % 5.8 % (0.0-3.0); HEMATOCRIT 40.4 % (36.0-47.0); HEMOGLOBIN 12.4 g/dl (12.0-15.5); IMMATURE GRANULOCYTE % 0.2 % (0-3.0); LYMPH % 35.1 % (24.0-44.0); MEAN CORPUSCULAR HEMOGLOBIN 25.9 pg (27.0-33.0); MEAN CORPUSCULAR HGB CONC 30.7 g/dl (32.0-36.5); MEAN CORPUSCULAR VOLUME 84.5 fl (80.0-96.0); MONO # 0.4 10^3/uL (0.0-0.8); MONO % 6.8 % (0.0-5.0); NEUTROPHILS # 2.9 10^3/uL (1.8-7.7); NEUTROPHILS % 50.9 % (36.0-66.0); PLATELET COUNT, AUTOMATED 277 10^3/uL (150-450); RED BLOOD COUNT 4.78 10^6/uL (4.00-5.40); WHITE BLOOD COUNT 5.7 10^3/uL (4.0-10.0)
[2018-08-24 14:36] LABS: ALBUMIN 3.1 GM/DL (3.2-5.2); ALBUMIN/GLOBULIN RATIO 0.91 (1.00-1.93); ALKALINE PHOSPHATASE 94 U/L (45-117); ALT/SGPT 17 U/L (12-78); ANION GAP 8 MEQ/L (8-16); AST/SGOT 9 U/L (7-37); BILIRUBIN,TOTAL 0.2 MG/DL (0.2-1.0); BLOOD UREA NITROGEN 11 MG/DL (7-18); CALCIUM LEVEL 8.2 MG/DL (8.5-10.1); CARBON DIOXIDE LEVEL 27 MEQ/L (21-32); CHLORIDE LEVEL 102 MEQ/L (98-107); CREATININE FOR GFR 0.71 MG/DL (0.55-1.30); GLOMERULAR FILTRATION RATE > 60.0 (>51); GLUCOSE, FASTING 234 MG/DL (70-100); POTASSIUM SERUM 4.8 MEQ/L (3.5-5.1); SODIUM LEVEL 137 MEQ/L (136-145); TOTAL PROTEIN 6.5 GM/DL (6.4-8.2)
== END ==
LOC: M LAB REF 12:55
DX: E84.9 Cystic fibrosis, unspecified (principal)
CPT/HCPCS: 80053

== ENCOUNTER → 2018-09-10 | Outpatient (REF) | payer MEDICARE ==
[~2018-09-10] MED LIST changes: +/ADVA50050 INH; +/ESOM40CA PO; +/ONDA4TA PO; +ALBU1.25 INH; +AMIT24CA7 PO; +AMITIZA; +AMITIZA PO; +AQUACAP PO; +ARNU1INH3 INH; +CALTRATE; +CALTRATE PO; +CALTTAB11 PO; +CIPR750T5 PO; +CLAR1TAB2 PO; +CLAR5CHW OR; +COLA100C2 OR; +COLA100C5 PO; +CREO24CA PO; +DEXI60CA PO; +DEXI60CA2 PO; +DOXY150C PO; +DRIS50003 PO; +FLAXOIL PO; +FLUC100T PO; +FLUC10TA OR; +INSUH10VL SC; +INSUH10VL SQ; +INSULANT; +INSULANT SC; -ISOVUE-300 61% 50ML VIAL (Q9967) As Ordered; +KALY150T PO; +KALYDECO PO; +KETO-28; +LEVA12INH INH; -LIDOCAINE 1% MDV 20ML VIAL As Ordered; +LINZ290C PO; +METO10TA2 OR; +MIRA3350 PO; +MIRA33504 PO; +MIRALEX PO; +MULTIVIT; +NEXI20CA PO; +NEXI40CA PO; +NOVOLOG100 MG/ML; +PHYT5TA PO; +PROAAER10 INH; +PULM1SOL INH; +SODI3NEB INH; +SODI7NEB3 INH; +TOBRAMYCIN; +TYLE500T78 PO; +VITA100T17 OR; +VITA100T56 PO; +VITA500046 PO; +VITA500047 PO; +VITA50005 PO; +VITA500C24 PO; +VITAMIN D50000 UNT PO; +VITMTA PO; +XOPE1.252 INH; +ZYVO1TAB PO; +[UNRECOGNIZED DRUG - CODE] IN; +[UNRECOGNIZED DRUG - CODE] IN; +[UNRECOGNIZED DRUG - CODE] INH; +[UNRECOGNIZED DRUG - CODE] INH; +[UNRECOGNIZED DRUG - OTHER]; +[UNRECOGNIZED DRUG - OTHER]; +[UNRECOGNIZED DRUG - OTHER] INH; +[UNRECOGNIZED DRUG - OTHER] NEB; +ferrous sulfate PO; +lantus insulin SC; +mucinex PO; +multivitamin PO; +vit c PO
[2018-09-10 19:45] LABS: BASO # 0.1 10^3/uL (0.0-0.2); BASO % 0.8 % (0.0-1.0); EOS # 0.1 10^3/uL (0.0-0.50); EOS % 1.7 % (0.0-3.0); HEMATOCRIT 39.1 % (36.0-47.0); HEMOGLOBIN 12.2 g/dl (12.0-15.5); LYMPH # 2.6 10^3/uL (1.5-4.5); LYMPH % 34.9 % (24.0-44.0); MEAN CORPUSCULAR HEMOGLOBIN 26.1 pg (27.0-33.0); MEAN CORPUSCULAR HGB CONC 31.2 g/dl (32.0-36.5); MEAN CORPUSCULAR VOLUME 83.5 fl (80.0-96.0); MONO # 0.5 10^3/uL (0.0-0.8); MONO % 6.6 % (0.0-5.0); NEUTROPHILS # 4.2 10^3/uL (1.8-7.7); NEUTROPHILS % 55.7 % (36.0-66.0); PLATELET COUNT, AUTOMATED 270 10^3/uL (150-450); RED BLOOD COUNT 4.68 10^6/uL (4.00-5.40); WHITE BLOOD COUNT 7.5 10^3/uL (4.0-10.0)
[2018-09-10 20:16] LABS: ALBUMIN 3.5 GM/DL (3.2-5.2); ALT/SGPT 18 U/L (12-78); BILIRUBIN,TOTAL 0.4 MG/DL (0.2-1.0); BLOOD UREA NITROGEN 8 MG/DL (7-18); CALCIUM LEVEL 8.8 MG/DL (8.5-10.1); CARBON DIOXIDE LEVEL 29 MEQ/L (21-32); CHLORIDE LEVEL 100 MEQ/L (98-107); CREATININE FOR GFR 0.76 MG/DL (0.55-1.30); GLOMERULAR FILTRATION RATE > 60.0 (>51); GLUCOSE, FASTING 260 MG/DL (70-100); POTASSIUM SERUM 4.6 MEQ/L (3.5-5.1); SODIUM LEVEL 136 MEQ/L (136-145); TOTAL PROTEIN 7.1 GM/DL (6.4-8.2)
== END ==
LOC: M LAB REF 19:22
PROVIDERS: ATTEND Internal Medicine Critical Care Medicine
DX: Z00.00 Encounter for general adult medical examination without abnormal findings (principal)

== ENCOUNTER → 2018-09-21 | Outpatient (CLI) | payer MEDICARE ==
--- NOTE | 2018-09-21 09:54 | REP ---
Complete abdominal sonography: History: Abdominal bloating. Findings: Exam quality is somewhat inhibited by the patient's limited ability to lie on her back due to her coughing. Scanning through the right upper quadrant of the abdomen demonstrates a normal sized contracted appearing gallbladder which appears to contain small polyps. No shadowing calculi are seen. The common bile duct is normal measuring 0.4 cm in greatest diameter. No focal hepatic lesion is seen. Limited views of the pancreas show no abnormality. Normal caliber aorta is seen. Scanning of the left upper quadrant demonstrates homogeneous normal size spleen. There is no evidence of ascites. Renal cortical echogenicity pattern is normal. There is no evidence of hydronephrosis, cyst or mass. The right kidney measures 10.1 x 4.4 x 4.0 cm. Left renal dimensions are 10.5 x 4.4 x 4.9 cm. Impression: Small contracted appearing gallbladder less than optimally seen. Possible small polyps. Otherwise negative complete abdominal sonography. Electronically Signed by Oziel Lux MD 09/21/2018 01:47 P
--- NOTE | 2018-09-21 12:04 | REP ---
Gastric emptying nuclear scintigraphy: History: Abdominal bloating. Technique: 1.06 mCi of technetium-99m sulfur colloid was ingested in two scrambled eggs and 6 ounces of water and sequential anterior and posterior images are acquired for an 89-minute imaging observation period. Regions of interest are drawn around the stomach to plot gastric emptying. Scintigraphic findings: Expected T1/2 is 90 minutes. 89 % emptying is observed in this patient during the 89-minute imaging observation period, for a calculated T1/2 in this patient of 48 minutes. Impression: Normal gastric emptying. Electronically Signed by Oziel Lux MD 09/21/2018 11:56 A
== END ==
LOC: M RAD 07:48
PROVIDERS: ATTEND Internal Medicine Gastroenterology
DX: R14.0 Abdominal distension (gaseous) (principal)
CPT/HCPCS: 76700; 78264; A9541

== ENCOUNTER → 2018-09-23 | Outpatient (REF) | payer MEDICARE ==
[2018-09-23 14:00] LABS: BASO # 0.1 10^3/uL (0.0-0.2); EOS # 0.6 10^3/uL (0.0-0.50); EOS % 9.5 % (0.0-3.0); HEMATOCRIT 40.7 % (36.0-47.0); HEMOGLOBIN 12.9 g/dl (12.0-15.5); LYMPH # 1.3 10^3/uL (1.5-4.5); LYMPH % 21.7 % (24.0-44.0); MEAN CORPUSCULAR HEMOGLOBIN 27.6 pg (27.0-33.0); MEAN CORPUSCULAR HGB CONC 31.7 g/dl (32.0-36.5); MEAN CORPUSCULAR VOLUME 87.2 fl (80.0-96.0); MONO # 0.4 10^3/uL (0.0-0.8); MONO % 6.4 % (0.0-5.0); NEUTROPHILS # 3.7 10^3/uL (1.8-7.7); NEUTROPHILS % 61.2 % (36.0-66.0); PLATELET COUNT, AUTOMATED 284 10^3/uL (150-450); RED BLOOD COUNT 4.67 10^6/uL (4.00-5.40)
[2018-09-23 14:24] LABS: ALBUMIN 3.2 GM/DL (3.2-5.2); ALT/SGPT 16 U/L (12-78); BILIRUBIN,TOTAL 0.3 MG/DL (0.2-1.0); BLOOD UREA NITROGEN 13 MG/DL (7-18); CARBON DIOXIDE LEVEL 28 MEQ/L (21-32); CHLORIDE LEVEL 101 MEQ/L (98-107); GLOMERULAR FILTRATION RATE > 60.0 (>51); GLUCOSE, FASTING 234 MG/DL (70-100); POTASSIUM SERUM 4.8 MEQ/L (3.5-5.1); SODIUM LEVEL 137 MEQ/L (136-145); TOTAL PROTEIN 6.6 GM/DL (6.4-8.2)
[2018-09-23 14:32] LABS: TOTAL 25(OH) VITAMIN D 41.5 NG/ML (30.0-100.0)
== END ==
LOC: M LAB REF 13:46
PROVIDERS: ATTEND Internal Medicine Critical Care Medicine
DX: E84.0 Cystic fibrosis with pulmonary manifestations (principal)

== ENCOUNTER → 2018-10-06 | Outpatient (CLI) | payer MEDICARE ==
--- NOTE | 2018-10-07 14:45 | PFTRPT ---
Height: 64.00 Inches Weight: 191.00 Lbs BSA: 1.92 Diagnosis: E84.0 DATE OF PROCEDURE: 10/06/2018 ORDERED BY: Sergo Haq Spirometry: Pre and post bronchodilator spirometry of excellent technical quality. Forced vital capacity reduced. FEV1 out of proportion. Obstructive index is, therefore, reduced. Flow Volume Loop: Expiratory limb of the flow volume loop does suggest flow rate limitation. No significant bronchodilator response is identified. IMPRESSION: Moderate obstructive ventilatory impairment with suspected concomitant air trapping versus true restriction. No significant bronchodilator response identified. Please correlate clinically. MTDD
== END ==
LOC: M CARPUL 12:44
PROVIDERS: ATTEND Internal Medicine
DX: E84.0 Cystic fibrosis with pulmonary manifestations (principal)

== ENCOUNTER → 2018-11-04 | Outpatient (REF) | payer MEDICARE ==
[2018-11-04 18:35] LABS: BASO # 0.2 10^3/uL (0.0-0.2); BASO % 1.9 % (0.0-1.0); EOS # 2.1 10^3/uL (0.0-0.50); HEMATOCRIT 38.9 % (36.0-47.0); HEMOGLOBIN 11.8 g/dl (12.0-15.5); LYMPH # 1.7 10^3/uL (1.5-4.5); LYMPH % 21.7 % (24.0-44.0); MEAN CORPUSCULAR HEMOGLOBIN 25.5 pg (27.0-33.0); MEAN CORPUSCULAR HGB CONC 30.3 g/dl (32.0-36.5); MONO # 0.5 10^3/uL (0.0-0.8); MONO % 5.8 % (0.0-5.0); NEUTROPHILS # 3.3 10^3/uL (1.8-7.7); NEUTROPHILS % 43.2 % (36.0-66.0); PLATELET COUNT, AUTOMATED 225 10^3/uL (150-450); RED BLOOD COUNT 4.63 10^6/uL (4.00-5.40); WHITE BLOOD COUNT 7.7 10^3/uL (4.0-10.0)
[2018-11-04 18:54] LABS: ALBUMIN 3.3 GM/DL (3.2-5.2); ALT/SGPT 51 U/L (12-78); BILIRUBIN,TOTAL 0.4 MG/DL (0.2-1.0); BLOOD UREA NITROGEN 6 MG/DL (7-18); CALCIUM LEVEL 8.5 MG/DL (8.5-10.1); CARBON DIOXIDE LEVEL 31 MEQ/L (21-32); CHLORIDE LEVEL 101 MEQ/L (98-107); CREATININE FOR GFR 0.71 MG/DL (0.55-1.30); GLOMERULAR FILTRATION RATE > 60.0 (>51); GLUCOSE, FASTING 213 MG/DL (70-100); POTASSIUM SERUM 4.2 MEQ/L (3.5-5.1); SODIUM LEVEL 138 MEQ/L (136-145); TOTAL PROTEIN 6.8 GM/DL (6.4-8.2)
[2018-11-04 19:43] LABS: EOS % 26.9 % (0.0-3.0)
== END ==
LOC: M LAB REF 16:56
DX: E84.0 Cystic fibrosis with pulmonary manifestations (principal)

== ENCOUNTER → 2020-03-30 | Outpatient (REF) | payer MEDICARE ==
[~2020-03-30] MED LIST changes: -/ADVA50050 INH; -/ESOM40CA PO; -/ONDA4TA PO; +ADVA1AER2 INH; +NEXI1CAP3 PO; +ONDA-1 PO
[2020-03-30 17:50] LABS: C REACTIVE PROTEIN QUANTITATIV 0.36 MG/DL (0.00-0.30); IMMUNOGLOBULIN E 94.2 IU/ML (<100); PERCENT SATURATION 10.1 % (13.2-45.0)
[2020-03-30 18:19] LABS: INR 1.06; PROTHROMBIN TIME 13.5 SECONDS (11.8-14.0)
[2020-04-03 16:08] LABS: VITAMIN A, RETINOL LEVEL 32.3 ug/dL (20.1-62.0); VITAMIN E(ALPHA TOCOPHEROL) 9.7 mg/L (7.0-25.1); VITAMIN E(GAMMA TOCOPHEROL) 0.9 mg/L (0.5-5.5)
== END ==
LOC: M LAB REF 16:43
PROVIDERS: ATTEND Internal Medicine
DX: E84.0 Cystic fibrosis with pulmonary manifestations (principal); D50.9 Iron deficiency anemia, unspecified

== ENCOUNTER → 2020-05-07 | Outpatient (CLI) | payer MEDICARE | LOC: M WUC 15:29 | PROVIDERS: ATTEND Internal Medicine Pulmonary Disease | DX: D50.9 Iron deficiency anemia, unspecified (principal) ==

== ENCOUNTER → 2020-10-25 | Outpatient (REF) | payer MEDICARE ==
[2020-10-25 14:25] LABS: INR 0.95; PROTHROMBIN TIME 12.9 SECONDS (12.5-14.3)
[2020-10-25 14:26] LABS: PARTIAL THROMBOPLASTIN TIME 26.5 SECONDS (24.2-38.5)
[2020-10-25 15:04] LABS: IMMUNOGLOBULIN E 77.7 IU/ML (<100); PERCENT SATURATION 14.4 % (13.2-45.0)
== END ==
LOC: M LAB REF 13:34
PROVIDERS: ATTEND Internal Medicine
DX: E84.0 Cystic fibrosis with pulmonary manifestations (principal); D50.9 Iron deficiency anemia, unspecified

== ENCOUNTER → 2022-01-17 | Outpatient (CLI) | payer MEDICARE ==
[~2022-01-17] MED LIST changes: -DOXY150C PO; +DOXY150C3 PO; -FLUC100T PO; +FLUC100T3 PO
== END ==
LOC: M WHC 08:33
DX: R10.11 Right upper quadrant pain (principal); E84.9 Cystic fibrosis, unspecified; K82.4 Cholesterolosis of gallbladder

== ENCOUNTER → 2022-01-17 | Outpatient (CLI) | payer MEDICARE | LOC: M WHC 08:28 | PROVIDERS: ATTEND Internal Medicine | DX: Z12.31 Encounter for screening mammogram for malignant neoplasm of breast (principal); Z13.820 Encounter for screening for osteoporosis; M81.0 Age-related osteoporosis without current pathological fracture; M85.88 Other specified disorders of bone density and structure, other site; M85.851 Other specified disorders of bone density and structure, right thigh; M85.852 Other specified disorders of bone density and structure, left thigh; Z78.0 Asymptomatic menopausal state; Z80.0 Family history of malignant neoplasm of digestive organs; Z79.899 Other long term (current) drug therapy ==

== ENCOUNTER → 2022-01-17 | Outpatient (CLI) | payer MEDICARE ==
[2022-01-17 13:12] LABS: BASO # 0.1 10^3/uL (0.0-0.2); BASO % 0.7 % (0.0-1.0); EOS # 0.1 10^3/uL (0.0-0.5); EOS % 1.4 % (0.0-3.0); HEMATOCRIT 39.8 % (36.0-47.0); HEMOGLOBIN 12.3 g/dl (12.0-15.5); LYMPH # 2.6 10^3/uL (1.5-5.0); LYMPH % 30.2 % (24.0-44.0); MEAN CORPUSCULAR HEMOGLOBIN 25.3 pg (27.0-33.0); MEAN CORPUSCULAR HGB CONC 30.9 g/dl (32.0-36.5); MEAN CORPUSCULAR VOLUME 81.7 fl (80.0-96.0); MONO # 0.4 10^3/uL (0.0-0.8); MONO % 4.9 % (2.0-8.0); NEUTROPHILS # 5.4 10^3/uL (1.5-8.5); NEUTROPHILS % 62.5 % (36.0-66.0); PLATELET COUNT, AUTOMATED 305 10^3/uL (150-450); RED BLOOD COUNT 4.87 10^6/uL (4.00-5.40); WHITE BLOOD COUNT 8.7 10^3/uL (4.0-10.0)
[2022-01-17 13:24] LABS: PARTIAL THROMBOPLASTIN TIME 31.4 SECONDS (25.9-37.0)
[2022-01-17 13:28] LABS: INR 0.93; PROTHROMBIN TIME 12.9 SECONDS (12.7-14.5)
[2022-01-17 13:48] LABS: HEMOGLOBIN A1c 10.4 %
[2022-01-17 13:54] LABS: ALBUMIN 3.5 GM/DL (3.2-5.2); ALT/SGPT 20 U/L (12-78); BILIRUBIN,TOTAL 0.4 MG/DL (0.2-1.0); BLOOD UREA NITROGEN 13 MG/DL (7-18); C REACTIVE PROTEIN QUANTITATIV 0.89 MG/DL (0.00-0.30); CALCIUM LEVEL 9.8 MG/DL (8.5-10.1); CARBON DIOXIDE LEVEL 32 MEQ/L (21-32); CHLORIDE LEVEL 102 MEQ/L (98-107); CHOLESTEROL LEVEL 177 MG/DL (<200); CHOLESTEROL RISK RATIO 3.687 (<5); CREATININE FOR GFR 0.77 MG/DL (0.55-1.30); FERRITIN 43 NG/ML (8-252); GLOMERULAR FILTRATION RATE > 60.0 (>51); GLUCOSE, FASTING 251 MG/DL (70-100); HDL CHOLESTEROL 48 MG/DL (>40); IMMUNOGLOBULIN E 61.6 IU/ML (<100); IRON (FE) 41 UG/DL (50-170); LDL CHOLESTEROL 102 MG/DL (<100); NON-HDL-C 129 MG/DL; PERCENT SATURATION 12.8 % (13.2-45.0); POTASSIUM SERUM 4.3 MEQ/L (3.5-5.1); SODIUM LEVEL 139 MEQ/L (136-145); TOTAL 25(OH) VITAMIN D 29.7 NG/ML (30.0-100.0); TOTAL IRON BINDING CAPACITY 321 UG/DL (250-450); TOTAL PROTEIN 6.9 GM/DL (6.4-8.2); TRIGLYCERIDES LEVEL 137 MG/DL (<150)
== END ==
LOC: M PLALAB 10:15
DX: E84.9 Cystic fibrosis, unspecified (principal)

== ENCOUNTER 2022-05-12 12:58 | Inpatient (IN) | payer MEDICARE ==
[~2022-05-12] VITALS: Ht 162.6 cm; Wt 111.8 kg
[~2022-05-12 12:58] MED LIST changes: +SODI4VIA9 INH; -SODI7NEB3 INH
[2022-05-12] MEDS ORDERED: IPRATROPIUM 0.5MG/ALBUTEROL 2.5MG INH SOL UD 3ML (DUONEB) NEB PRN (13:40)
[2022-05-12 14:24] LABS: BASO % 0.2 % (0.0-1.0); HEMATOCRIT 41.8 % (36.0-47.0); LYMPH # 0.7 10^3/uL (1.5-5.0); LYMPH % 8.3 % (24.0-44.0); MEAN CORPUSCULAR HEMOGLOBIN 25.3 pg (27.0-33.0); MEAN CORPUSCULAR HGB CONC 31.1 g/dl (32.0-36.5); MEAN CORPUSCULAR VOLUME 81.3 fl (80.0-96.0); MONO # 0.2 10^3/uL (0.0-0.8); MONO % 2.7 % (2.0-8.0); NEUTROPHILS # 7.5 10^3/uL (1.5-8.5); NEUTROPHILS % 88.1 % (36.0-66.0); PLATELET COUNT, AUTOMATED 283 10^3/uL (150-450); RED BLOOD COUNT 5.14 10^6/uL (4.00-5.40); WHITE BLOOD COUNT 8.5 10^3/uL (4.0-10.0)
[2022-05-12 14:36] LABS: INR 0.91; PROTHROMBIN TIME 12.7 SECONDS (12.7-14.5)
[2022-05-12 15:07] LABS: ALBUMIN 3.4 GM/DL (3.2-5.2); BILIRUBIN,DIRECT 0.1 MG/DL (0.0-0.2); BILIRUBIN,TOTAL 0.3 MG/DL (0.2-1.0); CALCIUM LEVEL 8.9 MG/DL (8.5-10.1); CREATININE FOR GFR 1.05 MG/DL (0.55-1.30); GLOMERULAR FILTRATION RATE 57.1 (>51); POTASSIUM SERUM 4.3 MEQ/L (3.5-5.1); TOTAL PROTEIN 7.3 GM/DL (6.4-8.2)
[2022-05-12 15:17] LABS: CK-MB VALUE MASS 1.8 NG/ML (<3.6); MB/CK RELATIVE INDEX 0.54 (< OR =4)
[2022-05-12 15:19] LABS: ABG BASE EXCESS 5.3 (-2.0-2.0); ABG HCO3 30.9 MEQ/L (22.0-26.0); ABG O2 SATURATION 95.2 % (95.0-99.0); ABG PARTIAL PRESSURE CO2 49.4 mmHg (35.0-45.0); ABG PARTIAL PRESSURE O2 79.9 mmHg (75.0-100.0); ABG STANDARD HCO3 29.1 MEQ/L (22.0-26.0); ABG TOTAL CO2 32.4 MEQ/L (22.0-29.0); ABG pH (ARTERIAL) 7.414 UNITS (7.350-7.450)
[2022-05-12] MEDS ORDERED: DEXTROSE 50% 50 ML SYRINGE IV PRN (17:40)
[2022-05-12] MEDS ORDERED: GLUCAGON INJ 1MG VIAL SC PRN (17:40)
[2022-05-12] MEDS ORDERED: ALBUTEROL 90 MCG/ACT 8GM HFA INHALER INH PRN (17:40)
[2022-05-12] MEDS ORDERED: GLUCOSE 4GM CHEW TABLET PO PRN (17:40)
[2022-05-12] MEDS ORDERED: SODIUM CHLORIDE HYPERTONIC 3% 15ML NEB SOL INH PRN (17:40)
[2022-05-12 17:53] LABS: CK-MB VALUE MASS 1.9 NG/ML (<3.6); MB/CK RELATIVE INDEX 0.58 (< OR =4)
[2022-05-12] MEDS ORDERED: CIPR500T39 PO (18:21)
[2022-05-12] MEDS ORDERED: MINO100C4 PO (18:21)
[2022-05-12] MEDS ORDERED: POTA10CA32 PO (18:21)
[2022-05-12] MEDS ORDERED: LORA-930 PO (18:21)
[2022-05-12] MEDS ORDERED: PRED20TA PO (18:21)
[2022-05-12] MEDS ORDERED: PANT40TA29 PO (18:21)
[2022-05-12] MEDS ORDERED: HOME MED LIST COMPLETE! XX SCH (18:25)
[2022-05-12] MEDS: INSULIN LISPRO (NovoLOG) PER UNIT SC SCH ×2 (19:00→22:00)
[2022-05-12] MEDS: methylPREDNISolone 125MG 2ML VIAL IV SCH (19:00)
[2022-05-12] MEDS: NS 1,000 ML IV SCH (19:03)
[2022-05-12] MEDS: LevoFLOXacin IV 750 MG in IV 1 EA IV SCH (19:03)
[2022-05-12] MEDS: ALBUTEROL SULFATE 2.5 MG/0.5 ML INH NEB SOLN NEB SCH ×2 (20:00→23:04)
[2022-05-12] MEDS: TOBRAMYCIN INHAL 300 MG/5 ML SOLN INH SCH (20:00)
[2022-05-12] MEDS ORDERED: LEVEMIR (INSULIN DETEMIR) 1 UNITS/0.01ML SC SCH (21:00)
[2022-05-12] MEDS ORDERED: CREON-24 CAPSULE PO PRN (21:35)
[2022-05-12] MEDS ORDERED: NIRMATRELVIR PO ONE (22:50)
[2022-05-12] MEDS ORDERED: RITONAVIR PO ONE (22:50)
[2022-05-13] MEDS: methylPREDNISolone 125MG 2ML VIAL IV SCH ×3 (02:15→17:51)
[2022-05-13] MEDS: ALBUTEROL SULFATE 2.5 MG/0.5 ML INH NEB SOLN NEB SCH ×5 (03:08→19:52)
[2022-05-13 06:14] LABS: BASO % 0.2 % (0.0-1.0); HEMOGLOBIN 12.2 g/dl (12.0-15.5); LYMPH # 0.8 10^3/uL (1.5-5.0); LYMPH % 13.6 % (24.0-44.0); MEAN CORPUSCULAR HEMOGLOBIN 25.3 pg (27.0-33.0); MEAN CORPUSCULAR HGB CONC 31.3 g/dl (32.0-36.5); MEAN CORPUSCULAR VOLUME 80.9 fl (80.0-96.0); MONO # 0.1 10^3/uL (0.0-0.8); NEUTROPHILS % 83.9 % (36.0-66.0); PLATELET COUNT, AUTOMATED 255 10^3/uL (150-450); RED BLOOD COUNT 4.82 10^6/uL (4.00-5.40)
[2022-05-13] MEDS: HEPARIN SOD (PORCINE) 5000UNITS/ML 1ML VIAL/SYRINGE SC SCH ×3 (06:21→21:00)
[2022-05-13] MEDS: NS 1,000 ML IV SCH (06:21)
[2022-05-13 06:56] LABS: BLOOD UREA NITROGEN 12 MG/DL (7-18); CALCIUM LEVEL 8.7 MG/DL (8.5-10.1); CARBON DIOXIDE LEVEL 30 MEQ/L (21-32); CHLORIDE LEVEL 99 MEQ/L (98-107); CREATININE FOR GFR 0.67 MG/DL (0.55-1.30); GLOMERULAR FILTRATION RATE > 60.0 (>51); GLUCOSE, FASTING 267 MG/DL (70-100); POTASSIUM SERUM 4.3 MEQ/L (3.5-5.1); SODIUM LEVEL 135 MEQ/L (136-145)
[2022-05-13] MEDS: TOBRAMYCIN INHAL 300 MG/5 ML SOLN INH SCH ×2 (07:39→19:52)
[2022-05-13 08:00] VITALS: BP 151/74
[2022-05-13] MEDS: INSULIN LISPRO (NovoLOG) PER UNIT SC SCH ×4 (08:20→20:54)
[2022-05-13] MEDS: MULTIVITAMINS/MINERALS THERAP 1 TAB PO SCH (08:21)
[2022-05-13] MEDS: PANTOPRAZOLE 40MG TAB (PROTONIX) PO SCH (08:21)
[2022-05-13] MEDS: TEZACAFTOR PO SCH (08:21)
[2022-05-13] MEDS: CREON-24 CAPSULE PO SCH ×3 (08:21→17:52)
[2022-05-13] MEDS: ELEXACAFTOR PO SCH (08:21)
[2022-05-13] MEDS: IVACAFTOR PO SCH (08:21)
[2022-05-13 12:43] VITALS: BP 145/72
[2022-05-13] MEDS ORDERED: LEVEMIR (INSULIN DETEMIR) 1 UNITS/0.01ML SC ONE ×2 (13:50→22:15)
[2022-05-13 16:00] VITALS: BP 140/68
[2022-05-13 20:00] VITALS: BP 145/70
[2022-05-13] MEDS: LevoFLOXacin IV 750 MG in IV 1 EA IV SCH (20:52)
[2022-05-13] MEDS: IVACAFTOR 150 MG PO SCH (20:53)
[2022-05-13] MEDS ORDERED: LEVEMIR (INSULIN DETEMIR) 1 UNITS/0.01ML SC SCH (21:00)
[2022-05-13] MEDS ORDERED: INSULIN LISPRO (NovoLOG) PER UNIT SC ONE (22:15)
[2022-05-14] VITALS: BP 135/73
[2022-05-14] MEDS: ALBUTEROL SULFATE 2.5 MG/0.5 ML INH NEB SOLN NEB SCH ×6 (00:57→19:53)
[2022-05-14] MEDS: methylPREDNISolone 125MG 2ML VIAL IV SCH ×2 (02:00→14:48)
[2022-05-14 03:56] VITALS: BP 139/63
[2022-05-14] MEDS: HEPARIN SOD (PORCINE) 5000UNITS/ML 1ML VIAL/SYRINGE SC SCH ×3 (05:02→22:33)
[2022-05-14 05:23] LABS: BASO % 0.1 % (0.0-1.0); HEMATOCRIT 38.3 % (36.0-47.0); HEMOGLOBIN 11.7 g/dl (12.0-15.5); LYMPH # 1.2 10^3/uL (1.5-5.0); LYMPH % 12.2 % (24.0-44.0); MEAN CORPUSCULAR HEMOGLOBIN 24.9 pg (27.0-33.0); MEAN CORPUSCULAR HGB CONC 30.5 g/dl (32.0-36.5); MEAN CORPUSCULAR VOLUME 81.5 fl (80.0-96.0); MONO # 0.2 10^3/uL (0.0-0.8); MONO % 1.8 % (2.0-8.0); NEUTROPHILS # 8.5 10^3/uL (1.5-8.5); NEUTROPHILS % 85.2 % (36.0-66.0); PLATELET COUNT, AUTOMATED 274 10^3/uL (150-450)
[2022-05-14 05:56] LABS: BLOOD UREA NITROGEN 18 MG/DL (7-18); CALCIUM LEVEL 8.8 MG/DL (8.5-10.1); CARBON DIOXIDE LEVEL 31 MEQ/L (21-32); CHLORIDE LEVEL 102 MEQ/L (98-107); CREATININE FOR GFR 0.69 MG/DL (0.55-1.30); GLOMERULAR FILTRATION RATE > 60.0 (>51); GLUCOSE, FASTING 174 MG/DL (70-100); POTASSIUM SERUM 3.9 MEQ/L (3.5-5.1); SODIUM LEVEL 138 MEQ/L (136-145)
[2022-05-14] MEDS: TOBRAMYCIN INHAL 300 MG/5 ML SOLN INH SCH ×2 (07:20→19:53)
[2022-05-14 08:00] VITALS: BP 144/72
[2022-05-14] MEDS: CREON-24 CAPSULE PO SCH ×3 (08:49→18:14)
[2022-05-14] MEDS: PANTOPRAZOLE 40MG TAB (PROTONIX) PO SCH (08:49)
[2022-05-14] MEDS: MULTIVITAMINS/MINERALS THERAP 1 TAB PO SCH (08:49)
[2022-05-14] MEDS: INSULIN LISPRO (NovoLOG) PER UNIT SC SCH ×4 (08:49→22:32)
[2022-05-14] MEDS: ELEXACAFTOR PO SCH (08:50)
[2022-05-14] MEDS: LEVEMIR (INSULIN DETEMIR) 1 UNITS/0.01ML SC SCH ×2 (08:50→22:31)
[2022-05-14] MEDS: TEZACAFTOR PO SCH (08:50)
[2022-05-14] MEDS: IVACAFTOR PO SCH (08:50)
[2022-05-14 16:00] VITALS: BP 138/81
[2022-05-14] MEDS: LevoFLOXacin IV 750 MG in IV 1 EA IV SCH (19:55)
[2022-05-14 20:00] VITALS: BP 145/40
[2022-05-14] MEDS: IVACAFTOR 150 MG PO SCH (22:35)
[2022-05-15] VITALS: BP 145/68
[2022-05-15] MEDS: ALBUTEROL SULFATE 2.5 MG/0.5 ML INH NEB SOLN NEB SCH ×7 (00:11→23:13)
[2022-05-15] MEDS: methylPREDNISolone 125MG 2ML VIAL IV SCH ×2 (03:17→15:27)
[2022-05-15 04:14] LABS: BASO % 0.2 % (0.0-1.0); HEMATOCRIT 37.5 % (36.0-47.0); HEMOGLOBIN 11.4 g/dl (12.0-15.5); LYMPH # 1.2 10^3/uL (1.5-5.0); MEAN CORPUSCULAR HEMOGLOBIN 24.8 pg (27.0-33.0); MEAN CORPUSCULAR HGB CONC 30.4 g/dl (32.0-36.5); MEAN CORPUSCULAR VOLUME 81.5 fl (80.0-96.0); MONO # 0.4 10^3/uL (0.0-0.8); MONO % 3.4 % (2.0-8.0); NEUTROPHILS # 9.5 10^3/uL (1.5-8.5); NEUTROPHILS % 83.8 % (36.0-66.0); PLATELET COUNT, AUTOMATED 285 10^3/uL (150-450); WHITE BLOOD COUNT 11.3 10^3/uL (4.0-10.0)
[2022-05-15 04:23] VITALS: BP 131/63
[2022-05-15 04:41] LABS: BLOOD UREA NITROGEN 24 MG/DL (7-18); CALCIUM LEVEL 8.6 MG/DL (8.5-10.1); CARBON DIOXIDE LEVEL 29 MEQ/L (21-32); CHLORIDE LEVEL 101 MEQ/L (98-107); CREATININE FOR GFR 0.74 MG/DL (0.55-1.30); GLOMERULAR FILTRATION RATE > 60.0 (>51); GLUCOSE, FASTING 284 MG/DL (70-100); POTASSIUM SERUM 4.3 MEQ/L (3.5-5.1); SODIUM LEVEL 135 MEQ/L (136-145)
[2022-05-15] MEDS: HEPARIN SOD (PORCINE) 5000UNITS/ML 1ML VIAL/SYRINGE SC SCH ×3 (05:56→21:47)
[2022-05-15] MEDS: TOBRAMYCIN INHAL 300 MG/5 ML SOLN INH SCH ×2 (07:43→19:49)
[2022-05-15 08:00] VITALS: BP 152/82
[2022-05-15] MEDS: INSULIN LISPRO (NovoLOG) PER UNIT SC SCH ×4 (09:49→21:48)
[2022-05-15] MEDS: CREON-24 CAPSULE PO SCH ×3 (09:49→17:43)
[2022-05-15] MEDS: LEVEMIR (INSULIN DETEMIR) 1 UNITS/0.01ML SC SCH ×2 (09:50→21:48)
[2022-05-15] MEDS: ELEXACAFTOR PO SCH (09:50)
[2022-05-15] MEDS: IVACAFTOR PO SCH (09:50)
[2022-05-15] MEDS: TEZACAFTOR PO SCH (09:50)
[2022-05-15] MEDS: PANTOPRAZOLE 40MG TAB (PROTONIX) PO SCH (09:50)
[2022-05-15] MEDS: MULTIVITAMINS/MINERALS THERAP 1 TAB PO SCH (09:50)
[2022-05-15 12:00] VITALS: BP 130/78
[2022-05-15] MEDS: BENZONATATE 100MG CAPSULE PO SCH ×3 (12:21→20:43)
[2022-05-15] MEDS: MIRALAX *UNIT DOSE* 17GM PACKET PO SCH (12:21)
[2022-05-15] MEDS: DOCUSATE SODIUM 100MG CAPSULE PO SCH ×2 (12:23→20:42)
[2022-05-15] MEDS: guaiFENesin ER 600 MG TAB PO SCH ×2 (12:23→20:43)
[2022-05-15 16:00] VITALS: BP 142/82
[2022-05-15] MEDS: LevoFLOXacin 750 MG TABLET PO SCH (20:43)
[2022-05-15] MEDS: IVACAFTOR 150 MG PO SCH (20:43)
[2022-05-15 21:00] VITALS: BP 174/77
[2022-05-16] MEDS: ALBUTEROL SULFATE 2.5 MG/0.5 ML INH NEB SOLN NEB SCH ×6 (03:19→23:53)
[2022-05-16 05:00] VITALS: BP 131/62
[2022-05-16] MEDS: HEPARIN SOD (PORCINE) 5000UNITS/ML 1ML VIAL/SYRINGE SC SCH ×3 (05:29→21:32)
[2022-05-16 06:00] LABS: HEMATOCRIT 37.6 % (36.0-47.0); HEMOGLOBIN 11.7 g/dl (12.0-15.5); MEAN CORPUSCULAR HEMOGLOBIN 25.1 pg (27.0-33.0); MEAN CORPUSCULAR HGB CONC 31.1 g/dl (32.0-36.5); MEAN CORPUSCULAR VOLUME 80.5 fl (80.0-96.0); PLATELET COUNT, AUTOMATED 255 10^3/uL (150-450); RED BLOOD COUNT 4.67 10^6/uL (4.00-5.40)
[2022-05-16 06:22] LABS: BLOOD UREA NITROGEN 21 MG/DL (7-18); CALCIUM LEVEL 8.8 MG/DL (8.5-10.1); CARBON DIOXIDE LEVEL 28 MEQ/L (21-32); CHLORIDE LEVEL 103 MEQ/L (98-107); CREATININE FOR GFR 0.67 MG/DL (0.55-1.30); GLOMERULAR FILTRATION RATE > 60.0 (>51); GLUCOSE, FASTING 114 MG/DL (70-100); SODIUM LEVEL 138 MEQ/L (136-145)
[2022-05-16 06:38] LABS: ATYPICAL LYMPH 3 % (0-5); HYPOCHROMASIA 1+; LYMPHOCYTES 13 % (16-44); MONOCYTES 5 % (0-5); NEUTROPHILS 74 % (28-66); PLATELET ESTIMATE NORMAL (NORMAL)
[2022-05-16 06:39] LABS: ANISOCYTOSIS 1+
[2022-05-16] MEDS: TOBRAMYCIN INHAL 300 MG/5 ML SOLN INH SCH ×2 (07:08→19:32)
[2022-05-16 07:21] VITALS: BP 142/67
[2022-05-16] MEDS: predniSONE 20 MG TAB PO SCH (08:21)
[2022-05-16] MEDS: PANTOPRAZOLE 40MG TAB (PROTONIX) PO SCH (08:21)
[2022-05-16] MEDS: MULTIVITAMINS/MINERALS THERAP 1 TAB PO SCH (08:21)
[2022-05-16] MEDS: guaiFENesin ER 600 MG TAB PO SCH ×2 (08:21→21:33)
[2022-05-16] MEDS: BENZONATATE 100MG CAPSULE PO SCH ×3 (08:21→21:33)
[2022-05-16] MEDS: CREON-24 CAPSULE PO SCH ×3 (08:22→17:35)
[2022-05-16] MEDS: DOCUSATE SODIUM 100MG CAPSULE PO SCH ×2 (08:22→21:33)
[2022-05-16] MEDS: MIRALAX *UNIT DOSE* 17GM PACKET PO SCH (08:22)
[2022-05-16] MEDS: LEVEMIR (INSULIN DETEMIR) 1 UNITS/0.01ML SC SCH ×2 (08:23→21:32)
[2022-05-16] MEDS: TEZACAFTOR PO SCH (08:24)
[2022-05-16] MEDS: ELEXACAFTOR PO SCH (08:24)
[2022-05-16] MEDS: IVACAFTOR PO SCH (08:24)
[2022-05-16] MEDS: INSULIN LISPRO (NovoLOG) PER UNIT SC SCH ×4 (08:24→21:00)
[2022-05-16] MEDS ORDERED: predniSONE 20 MG TAB PO SCH (09:00)
[2022-05-16] MEDS: METOCLOPRAMIDE 5 MG TAB PO SCH ×4 (09:00→21:32)
[2022-05-16] MEDS: SODIUM CHLORIDE HYPERTONIC 3% 15ML NEB SOL INH SCH ×4 (12:00→23:54)
[2022-05-16 20:09] VITALS: BP 158/72
[2022-05-16] MEDS: IVACAFTOR 150 MG PO SCH (21:31)
[2022-05-16] MEDS: LevoFLOXacin 750 MG TABLET PO SCH (21:33)
[2022-05-17] MEDS: ALBUTEROL SULFATE 2.5 MG/0.5 ML INH NEB SOLN NEB SCH ×2 (03:48→07:20)
[2022-05-17] MEDS: SODIUM CHLORIDE HYPERTONIC 3% 15ML NEB SOL INH SCH ×2 (03:48→07:20)
[2022-05-17 04:20] VITALS: BP 165/74
[2022-05-17] MEDS ORDERED: amLODIPine 5 MG TAB PO ONE (05:30)
[2022-05-17 06:24] VITALS: BP 165/74
[2022-05-17] MEDS: HEPARIN SOD (PORCINE) 5000UNITS/ML 1ML VIAL/SYRINGE SC SCH (06:24)
[2022-05-17 07:00] LABS: HEMATOCRIT 38.3 % (36.0-47.0); HEMOGLOBIN 11.8 g/dl (12.0-15.5); MEAN CORPUSCULAR HEMOGLOBIN 25.1 pg (27.0-33.0); MEAN CORPUSCULAR HGB CONC 30.8 g/dl (32.0-36.5); MEAN CORPUSCULAR VOLUME 81.3 fl (80.0-96.0); PLATELET COUNT, AUTOMATED 258 10^3/uL (150-450); RED BLOOD COUNT 4.71 10^6/uL (4.00-5.40)
[2022-05-17] MEDS: TOBRAMYCIN INHAL 300 MG/5 ML SOLN INH SCH (07:20)
[2022-05-17 07:25] LABS: BLOOD UREA NITROGEN 18 MG/DL (7-18); CALCIUM LEVEL 8.4 MG/DL (8.5-10.1); CARBON DIOXIDE LEVEL 31 MEQ/L (21-32); CHLORIDE LEVEL 104 MEQ/L (98-107); CREATININE FOR GFR 0.58 MG/DL (0.55-1.30); GLOMERULAR FILTRATION RATE > 60.0 (>51); GLUCOSE, FASTING 104 MG/DL (70-100); SODIUM LEVEL 139 MEQ/L (136-145)
[2022-05-17 07:26] LABS: ATYPICAL LYMPH 6 % (0-5); EOSINOPHILS 1 % (0-3); LYMPHOCYTES 36 % (16-44); MONOCYTES 4 % (0-5); NEUTROPHILS 44 % (28-66)
[2022-05-17 07:27] LABS: GIANT PLATELETS 1+; HYPOCHROMASIA 1+; PLATELET ESTIMATE NORMAL (NORMAL)
[2022-05-17 08:00] VITALS: BP 128/68
[2022-05-17] MEDS: predniSONE 20 MG TAB PO SCH (08:22)
[2022-05-17] MEDS: BENZONATATE 100MG CAPSULE PO SCH (08:22)
[2022-05-17] MEDS: MULTIVITAMINS/MINERALS THERAP 1 TAB PO SCH (08:22)
[2022-05-17] MEDS: guaiFENesin ER 600 MG TAB PO SCH (08:22)
[2022-05-17] MEDS: PANTOPRAZOLE 40MG TAB (PROTONIX) PO SCH (08:23)
[2022-05-17] MEDS: CREON-24 CAPSULE PO SCH (08:23)
[2022-05-17] MEDS: DOCUSATE SODIUM 100MG CAPSULE PO SCH (08:23)
[2022-05-17] MEDS: IVACAFTOR PO SCH (08:23)
[2022-05-17] MEDS: ELEXACAFTOR PO SCH (08:23)
[2022-05-17] MEDS: MIRALAX *UNIT DOSE* 17GM PACKET PO SCH (08:23)
[2022-05-17] MEDS: METOCLOPRAMIDE 5 MG TAB PO SCH (08:23)
[2022-05-17] MEDS: TEZACAFTOR PO SCH (08:23)
[2022-05-17 08:28] VITALS: BP 140/66
[2022-05-17] MEDS: INSULIN LISPRO (NovoLOG) PER UNIT SC SCH (08:34)
[2022-05-17] MEDS: LEVEMIR (INSULIN DETEMIR) 1 UNITS/0.01ML SC SCH (08:38)
[2022-05-17] MEDS ORDERED: PRED20TA PO (09:20)
[2022-05-17] MEDS ORDERED: LEVO1TAB40 PO (09:20)
[2022-05-17] MEDS ORDERED: MUCI600T31 PO (09:20)
== END 2022-05-17 10:30 | disposition home or self-care (01) | DRG 193 ==
LOC: M ED 12:58 → M ED INP 17:36 → M PCU 22:14
PROVIDERS: ADMIT Internal Medicine; ATTEND Internal Medicine
DX: J12.3 Human metapneumovirus pneumonia (principal); J96.01 Acute respiratory failure with hypoxia; E84.8 Cystic fibrosis with other manifestations; E87.2 Acidosis; B44.81 Allergic bronchopulmonary aspergillosis; E11.42 Type 2 diabetes mellitus with diabetic polyneuropathy; K59.09 Other constipation; Z86.16 Personal history of COVID-19; K86.89 Other specified diseases of pancreas; Z79.2 Long term (current) use of antibiotics; Z79.4 Long term (current) use of insulin; Z79.899 Other long term (current) drug therapy; Z88.5 Allergy status to narcotic agent; Z88.2 Allergy status to sulfonamides; Z88.8 Allergy status to other drugs, medicaments and biological substances

== ENCOUNTER → 2022-11-19 | Outpatient (REF) | payer MEDICARE ==
[~2022-11-19] MED LIST changes: +CIPR500T39 PO; +LEVO1TAB40 PO; +LORA-930 PO; +MINO100C4 PO; +MUCI600T31 PO; +PANT40TA29 PO; +POTA10CA33 PO; +PRED20TA PO; +[UNRECOGNIZED DRUG - CODE] INH; -[UNRECOGNIZED DRUG - CODE] INH
[2022-11-19 16:48] LABS: BASO # 0.1 10^3/uL (0.0-0.2); BASO % 1.2 % (0.0-1.0); EOS # 0.3 10^3/uL (0.0-0.5); EOS % 3.4 % (0.0-3.0); HEMOGLOBIN 12.4 g/dl (12.0-15.5); LYMPH # 3.2 10^3/uL (1.5-5.0); LYMPH % 33.7 % (24.0-44.0); MEAN CORPUSCULAR HEMOGLOBIN 24.4 pg (27.0-33.0); MEAN CORPUSCULAR HGB CONC 30.2 g/dl (32.0-36.5); MEAN CORPUSCULAR VOLUME 80.7 fl (80.0-96.0); MONO # 0.5 10^3/uL (0.0-0.8); MONO % 5.5 % (2.0-8.0); NEUTROPHILS # 5.2 10^3/uL (1.5-8.5); NEUTROPHILS % 55.4 % (36.0-66.0); PLATELET COUNT, AUTOMATED 330 10^3/uL (150-450); RED BLOOD COUNT 5.08 10^6/uL (4.00-5.40); WHITE BLOOD COUNT 9.5 10^3/uL (4.0-10.0)
[2022-11-19 17:18] LABS: ALBUMIN 3.2 G/DL (3.2-5.2); ALKALINE PHOSPHATASE 101 U/L (46-116); ALT/SGPT 25 U/L (7.0-40); AST/SGOT 28 U/L (<34); BILIRUBIN,TOTAL 0.3 MG/DL (0.3-1.2); BLOOD UREA NITROGEN 15 MG/DL (9-23); CARBON DIOXIDE LEVEL 32 MMOL/L (20-31); CHLORIDE LEVEL 97 MMOL/L (98-107); CREATININE FOR GFR 0.77 MG/DL (0.55-1.30); GLOMERULAR FILTRATION RATE > 60.0 (>51); GLUCOSE, FASTING 175 MG/DL (60-100); POTASSIUM SERUM 5.4 MMOL/L (3.5-5.1); SODIUM LEVEL 135 MMOL/L (136-145); TOTAL PROTEIN 6.3 G/DL (5.7-8.2)
== END ==
LOC: M LAB REF 16:22
PROVIDERS: ATTEND Nurse Practitioner Adult Health
DX: E84.9 Cystic fibrosis, unspecified (principal)

== ENCOUNTER → 2022-11-23 | Outpatient (REF) | payer MEDICARE ==
[2022-11-23 14:32] LABS: BASO # 0.1 10^3/uL (0.0-0.2); BASO % 1.1 % (0.0-1.0); EOS # 0.4 10^3/uL (0.0-0.5); EOS % 5.8 % (0.0-3.0); HEMATOCRIT 38.5 % (36.0-47.0); HEMOGLOBIN 11.4 g/dl (12.0-15.5); LYMPH # 2.1 10^3/uL (1.5-5.0); LYMPH % 28.3 % (24.0-44.0); MEAN CORPUSCULAR HEMOGLOBIN 24.3 pg (27.0-33.0); MEAN CORPUSCULAR HGB CONC 29.6 g/dl (32.0-36.5); MEAN CORPUSCULAR VOLUME 81.9 fl (80.0-96.0); MONO # 0.5 10^3/uL (0.0-0.8); MONO % 6.8 % (2.0-8.0); NEUTROPHILS # 4.2 10^3/uL (1.5-8.5); NEUTROPHILS % 57.5 % (36.0-66.0); PLATELET COUNT, AUTOMATED 316 10^3/uL (150-450); WHITE BLOOD COUNT 7.4 10^3/uL (4.0-10.0)
[2022-11-23 14:42] LABS: ERYTHROCYTE SEDIMENTATION RATE 51 mm/hr (0-30)
[2022-11-23 14:52] LABS: ALBUMIN 3.1 G/DL (3.2-5.2); ALKALINE PHOSPHATASE 98 U/L (46-116); ALT/SGPT 22 U/L (7.0-40); AST/SGOT 17 U/L (<34); BILIRUBIN,TOTAL 0.3 MG/DL (0.3-1.2); BLOOD UREA NITROGEN 9 MG/DL (9-23); CALCIUM LEVEL 8.4 MG/DL (8.5-10.1); CARBON DIOXIDE LEVEL 30 MMOL/L (20-31); CHLORIDE LEVEL 104 MMOL/L (98-107); CREATININE FOR GFR 0.69 MG/DL (0.55-1.30); GLOMERULAR FILTRATION RATE > 60.0 (>51); GLUCOSE, FASTING 110 MG/DL (60-100); POTASSIUM SERUM 3.9 MMOL/L (3.5-5.1); SODIUM LEVEL 139 MMOL/L (136-145); TOTAL PROTEIN 6.2 G/DL (5.7-8.2)
== END ==
LOC: M LAB REF 12:10
PROVIDERS: ATTEND Nurse Practitioner Adult Health
DX: E84.9 Cystic fibrosis, unspecified (principal)

== ENCOUNTER → 2023-04-17 | Outpatient (REF) | payer MEDICARE ==
[~2023-04-17] MED LIST changes: -POTA10CA33 PO; +POTA10CA60 PO; +[UNRECOGNIZED DRUG - CODE] INH; -[UNRECOGNIZED DRUG - CODE] INH
== END ==
LOC: M LAB REF 12:07
PROVIDERS: ATTEND Internal Medicine
DX: D50.9 Iron deficiency anemia, unspecified (principal)

== ENCOUNTER → 2023-09-30 | Outpatient (REF) | payer MEDICARE ==
[~2023-09-30] MED LIST changes: +MEPH5TAB6 PO; -PHYT5TA PO
[2023-09-30 16:57] LABS: BASO # 0.1 10^3/uL (0.0-0.2); BASO % 1.7 % (0.0-1.0); EOS # 0.7 10^3/uL (0.0-0.5); EOS % 10.1 % (0.0-3.0); HEMATOCRIT 40.4 % (36.0-47.0); HEMOGLOBIN 12.7 g/dl (12.0-15.5); LYMPH # 1.7 10^3/uL (1.5-5.0); LYMPH % 24.5 % (24.0-44.0); MEAN CORPUSCULAR HEMOGLOBIN 25.9 pg (27.0-33.0); MEAN CORPUSCULAR HGB CONC 31.4 g/dl (32.0-36.5); MEAN CORPUSCULAR VOLUME 82.4 fl (80.0-96.0); MONO # 0.6 10^3/uL (0.0-0.8); MONO % 7.8 % (2.0-8.0); NEUTROPHILS # 3.9 10^3/uL (1.5-8.5); NEUTROPHILS % 55.5 % (36.0-66.0); PLATELET COUNT, AUTOMATED 288 10^3/uL (150-450); WHITE BLOOD COUNT 7.1 10^3/uL (4.0-10.0)
[2023-09-30 17:14] LABS: BLOOD UREA NITROGEN 9 MG/DL (9-23); CALCIUM LEVEL 8.2 MG/DL (8.3-10.6); CARBON DIOXIDE LEVEL 30 MMOL/L (20-31); CHLORIDE LEVEL 104 MMOL/L (98-107); GLOMERULAR FILTRATION RATE > 60.0 (>45); GLUCOSE, FASTING 162 MG/DL (74-106); POTASSIUM SERUM 4.3 MMOL/L (3.5-5.1); SODIUM LEVEL 138 MMOL/L (136-145)
== END ==
LOC: M LAB REF 16:31
PROVIDERS: ATTEND Internal Medicine Pulmonary Disease
DX: E84.0 Cystic fibrosis with pulmonary manifestations (principal)

== ENCOUNTER → 2023-12-01 | Outpatient (CLI) | payer MEDICARE | LOC: M RAD 10:31 | PROVIDERS: ATTEND Nurse Practitioner Family | DX: R10.9 Unspecified abdominal pain (principal) ==

== ENCOUNTER → 2023-12-09 | Outpatient (CLI) | payer MEDICARE ==
[~2023-12-09] MED LIST changes: +GASTROGRAFIN SOLUTION 30ML ONE; +ISOVUE-370 76% 100ML VIAL ONE
== END ==
LOC: M PLAIMG 11:52
PROVIDERS: ATTEND Internal Medicine
DX: R91.8 Other nonspecific abnormal finding of lung field (principal); K63.89 Other specified diseases of intestine
CPT/HCPCS: 74170; Q9963; Q9967

== ENCOUNTER → 2024-04-14 | Outpatient (CLI) | payer MEDICARE ==
[~2024-04-14] MED LIST changes: +ALBU8.5H INH; +BUPR-597 PO; -DOXY150C3 PO; +DOXY150C5 PO; +ELEX1TAB PO; +FLUT1BLS8 INH; +FURO40TA2 PO; -GASTROGRAFIN SOLUTION 30ML ONE; +IRON15CH PO; -ISOVUE-370 76% 100ML VIAL ONE; +METO5TAB2 PO; -POTA10CA60 PO; +POTA10CA70 PO; +RA M500C PO
== END ==
LOC: M WHC 09:54
PROVIDERS: ATTEND Nurse Practitioner Adult Health
DX: E84.9 Cystic fibrosis, unspecified (principal); R93.7 Abnormal findings on diagnostic imaging of other parts of musculoskeletal system; E08.9 Diabetes mellitus due to underlying condition without complications; M81.0 Age-related osteoporosis without current pathological fracture; Z79.51 Long term (current) use of inhaled steroids; M85.89 Other specified disorders of bone density and structure, multiple sites

== ENCOUNTER → 2024-06-20 | Outpatient (REF) | payer MEDICARE ==
[2024-06-21 14:39] LABS: FERRITIN 34.9 NG/ML (7.3-270.7)
[2024-06-21 14:40] LABS: VITAMIN B12 LEVEL 1934 PG/ML (211-911)
[2024-06-21 15:31] LABS: FOLATE > 24.0 NG/ML (>5.4)
== END ==
LOC: M LAB REF 13:03
PROVIDERS: ATTEND Internal Medicine
DX: D50.9 Iron deficiency anemia, unspecified (principal)

== ENCOUNTER → 2024-10-07 | Outpatient (REF) | payer MEDICARE ==
[2024-10-07 17:25] LABS: RSV AMPLIFICATION NEGATIVE (NEGATIVE)
== END ==
LOC: EEVIPCON 16:10 → M LAB REF 16:10
PROVIDERS: ATTEND Internal Medicine
DX: R05.9 Cough, unspecified (principal); E84.9 Cystic fibrosis, unspecified

== ENCOUNTER → 2024-11-29 | Outpatient (CLI) | payer MEDICARE ==
[~2024-11-29] MED LIST changes: -AMIT24CA7 PO; +LUBI24CA32 PO
== END ==
LOC: M WUC 14:54
PROVIDERS: ATTEND Nurse Practitioner Family
DX: M17.12 Unilateral primary osteoarthritis, left knee (principal)

== ENCOUNTER → 2025-03-27 | Outpatient (REF) | payer MEDICARE ==
[~2025-03-27] MED LIST changes: -BUPR-597 PO; +BUPR-766 PO
== END ==
LOC: M LAB REF 14:46
PROVIDERS: ATTEND Internal Medicine
DX: D50.9 Iron deficiency anemia, unspecified (principal)

== ENCOUNTER → 2025-06-19 | Outpatient (CLI) | payer MEDICARE | LOC: M WHC 04-17 10:09 | PROVIDERS: ATTEND Nurse Practitioner Adult Health | DX: E84.9 Cystic fibrosis, unspecified (principal); R93.7 Abnormal findings on diagnostic imaging of other parts of musculoskeletal system; E08.9 Diabetes mellitus due to underlying condition without complications; M81.0 Age-related osteoporosis without current pathological fracture; Z79.51 Long term (current) use of inhaled steroids; M85.89 Other specified disorders of bone density and structure, multiple sites ==

== ENCOUNTER → 2025-06-21 | Outpatient (REF) | payer MEDICARE | LOC: M LAB REF 16:47 | PROVIDERS: ATTEND Internal Medicine | DX: J02.9 Acute pharyngitis, unspecified (principal); R05.1 Acute cough ==

== ENCOUNTER → 2025-08-18 | Outpatient (CLI) | payer MEDICARE ==
[2025-08-18 18:46] LABS: ALT/SGPT 21.0 U/L (7.0-40); AST/SGOT 16.0 U/L (<34)
== END ==
LOC: M WUC 13:15
PROVIDERS: ATTEND Internal Medicine
DX: R79.89 Other specified abnormal findings of blood chemistry (principal); Z79.899 Other long term (current) drug therapy